=== PATIENT | male | born 1990 | race Caucasian/White ===

== ENCOUNTER 2020-04-13 10:24 | Outpatient (REF) | payer OTHER, SELFPAY ==
--- NOTE | ~2020-04-13 | FL_ITS ---
EXAMINATION: XR GI SERIES CLINICAL INFORMATION: Nausea COMPARISON: None TECHNIQUE: Air-contrast upper GI examination FINDINGS: There is normal apposition of the vocal cords while saying E. There is normal elevation of the soft palate while saying Candy. Patient swallowed thin and thick barium without difficulty. There was no evidence of nasopharyngeal reflux or tracheal aspiration. There is normal esophageal motility without evidence of ulceration or stricture. There was noted to be a patulous gastroesophageal junction with spontaneous gastroesophageal to the level of the thoracic inlet which cleared slowly. No hiatal hernia evident. The stomach demonstrated normal distensibility without ulceration or mass. There was no delay in gastric emptying. There is noted to be some persistent prominence of the duodenal mucosal folds without definite ulceration and consistent with duodenitis. The remainder of the duodenal sweep appeared unremarkable. FLUOROSCOPY TIME: 1.7 minutes DOSE AREA PRODUCT: 17.686 Gy centimeter squared FL/FL upper GI series IMPRESSION: 1. Patulous gastroesophageal junction with spontaneous reflux to the level of the thoracic inlet. 2. Thickened folds within the duodenal bulb consistent with duodenitis.
== END 2020-04-13 10:25 | disposition home or self-care (01) ==
LOC: HO.XRAY 10:24
PROVIDERS: PCP Internal Medicine; Visit Provider Internal Medicine
DX: R10.13 Epigastric pain (principal); R11.0 Nausea
CPT/HCPCS: 74240

== ENCOUNTER → 2020-05-10 13:01 | Outpatient (BNVA) | payer OTHER, SELFPAY | PROVIDERS: PCP Internal Medicine; Visit Provider Physician Assistant ==

== ENCOUNTER → 2020-06-02 08:29 | Outpatient (BNVA) | payer OTHER, SELFPAY | PROVIDERS: PCP Internal Medicine; Visit Provider Internal Medicine | DX: Z01.810 Encounter for preprocedural cardiovascular examination (principal); I63.411 Cerebral infarction due to embolism of right middle cerebral artery; Q21.1 Atrial septal defect | CPT/HCPCS: 93005; 99212 ==

== ENCOUNTER 2021-03-25 18:55 | Emergency (ER) | payer OTHER, SELFPAY ==
--- NOTE | ~2021-03-25 | CT_ITS ---
EXAMINATION: CT HEAD WITHOUT CONTRAST CLINICAL INFORMATION: Headache, rule out bleed stroke, mass effect. COMPARISON: Head CT scan dated 08/02/2016 TECHNIQUE: Contiguous axial imaging was performed from the skull base to vertex without intravenous administration of contrast. Coronal and sagittal reformatted images were obtained. This CT examination was performed using dose optimization techniques as appropriate, variously including the following: *Automated exposure control *Adjustment of mA and/or kV according to patient size (this includes techniques or standardized protocols for targeted exams where dose is matched to indication/reason for exam; i.e. extremities or head) *Use of iterative reconstruction technique DLP: 773 mGy-cm FINDINGS: Encephalomalacia is seen anteriorly in the right temporal lobe as well as in the right parietal occipital region, increased from the previous study. Mild asymmetric cortical atrophy is seen in the right cortex. There is no evidence of acute intracranial hemorrhage. No abnormal mass effect or midline shift is seen. Torre to white matter differentiation is well preserved. No extra-axial fluid collections are identified. The ventricles are normal in size. There is no abnormal attenuation within the brain parenchyma. The osseous structures and soft tissues are normal. The mastoid air cells and visualized portions of the paranasal sinuses are well aerated. CT/CT head/brain wo con IMPRESSION: Right temporal and parietal occipital encephalomalacia, increased from the previous study suggesting evolution of previously seen right middle cerebral artery territorial infarcts. A definitive acute abnormality is not seen. If the patient is experiencing acute symptoms/deficits, MRI should be considered.
[2021-03-25 19:01] VITALS: BP 121/79; PULSE 82; RESP 16; TEMP 36.8; O2SAT 96; BMI 26.9
--- NOTE | 2021-03-25 19:08 | PC.NURSE ---
Covid swab obtained. Pt refusing labs, states I really just want the Covid swab and an IV. This RN explaining why labs are important regarding his CC. Pt continues refusing labs.
[2021-03-25 19:33] LABS: COVID-19 Test Negative (Negative); IDNOW Serial# 9DD0AD1C
[2021-03-25 19:37] VITALS: RESP 16
[2021-03-25 19:49] LABS: MANUAL DIFF FLAG NO
[2021-03-25 19:50] LABS: Basophils Percent Auto 0.2 % (0-2); Eosinophils Percent Auto 0.4 % (0-4); Hematocrit 46.3 % (42.0-52.0); Hemoglobin 14.6 g/dl (14.0-18.0); Imm Gran Abs Auto 0.02 X10*3/uL (0.00-0.03); Imm Gran Pct Auto 0.2 % (0.0-0.4); Lymphocytes Absolute Auto 1.3 X10*3/uL (1.2-4.9); Mean Corpuscular HGB Conc 31.5 g/dl (31.0-36.0); Mean Corpuscular Hemoglobin 29.1 pg (27.0-33.0); Mean Corpuscular Volume 92.2 fL (80.0-98.0); Mean Platelet Volume 8.9 fL (9.4-12.4); Monocytes Absolute Auto 0.5 X10*3/uL (0.1-1.2); Monocytes Percent Auto 5.8 % (2-11); Neutrophils Absolute Auto 6.4 x10*3/uL (2.0-8.3); Neutrophils Percent Auto 77.4 % (45-73); Platelet Count 401 X10*3/uL (160-400); Red Blood Count 5.02 X10*6/uL (4.60-5.80); Red Cell Distribution Width 14.2 % (11.0-16.0); White Blood Count 8.3 X10*3/uL (4.8-10.8)
--- NOTE | 2021-03-25 19:54 | ED_ITS ---
HPI - Nausea/Vomiting/Diarrhea General Chief complaint: Nausea/Vomiting/Diarrhea Stated complaint: nausea, vomiting Time Seen by Provider: 03/25/21 19:40 Source: patient Mode of arrival: ambulatory Limitations: no limitations History of Present Illness HPI Narrative: 31-year-old male who presents emergency department for evaluation of nausea, vomiting, headache x2 days. The patient states he has been having headaches on and off for 3 weeks. He states that over the past 2 days the headache is been constant. He states that the headaches located behind his eyes, the pain is sharp and is 10/10. Patient states that he has a history stroke and cerebral aneurysm 2 years prior and was treated at [facility]. He states that he has had 3-4 episodes of vomiting per day. He states that any time he t laura to eat or drink he vomits. States that he has constant nausea. He also has developed rhinorrhea, shaking chills and fatigue. He has a cough only in the morning which is productive of green phlegm. He denied chest pain, shortness of breath, dyspnea on exertion, diarrhea, myalgias, arthralgias or loss of sense of taste or smell. In reviewing the patient's records, patient was seen here for an acute stroke secondary to and right MCA embolism secondary to PFO. Patient received tPA and eventually had clot retrieval at [facility]. The patient does have a atrial septal aneurysm but I do not think that he had a cerebral aneurysm based on my review of his record. Related Data Home Medications Medication Instructions Recorded Confirmed buprenorphine 8 mg-naloxone 2 mg 2 tab SUBLINGUAL DAILY 05/10/20 03/20/21 sublingual tablet aspirin 81 mg tablet,delayed 81 mg PO DAILY 06/02/20 03/20/21 release omeprazole 40 mg capsule,delayed 40 mg PO DAILY 06/02/20 03/20/21 release Previous Rx's Medication Instructions Recorded pantoprazole 40 mg tablet,delayed 40 mg PO BID #90 tab 05/18/20 release sucralfate 100 mg/mL oral 10 ml PO BEDTIME #400 ml 05/18/20 suspension ifsnbojdcf-xjdzarqaocfwh-wttcqhjf 1 cap PO Q8H PRN #60 cap 03/21/21 50 mg-300 mg-40 mg capsule (Fioricet) metoclopramide HCl 10 mg tablet 10 mg PO Q6H PRN #14 tab 03/25/21 (Reglan) Allergies Allergy/AdvReac Type Severity Reaction Status Date / Time No Known Allergies Allergy Verified 03/25/21 19:05 [No Known Allergies*] Review of Systems Verdana 4l Review of Systems: Yes all other systems are reviewed and Verdana 4d are negative [facility] Past Medical History [facility] Narrative: Social history: He denies tobacco and alcohol use. 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 He is currently in a Suboxone program. Medical History Cerebrovascular accident (CVA) due to embolism of right middle cerebral artery CVA (cerebral vascular accident) Drug abuse Duodenitis Epigastric discomfort Epilepsy GERD (gastroesophageal reflux disease) History of substance abuse Nausea PFO (patent foramen ovale) PFO with atrial septal aneurysm Pure hypercholesterolemia Seizure Surgical History History of surgery Family History Family History Father No problems noted. Mother No problems noted. 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 Physical Exam Verdana 4l Vital Signs: Verdana 4d Verdana 4d Vital Signs: Verdana 4d Verdana 4Bd Last Vital Signs Verdana 4d Production Sorter New 4d Production Sorter New 4d Temp 98.2 F 03/25/21 19:01 Production Sorter New 4d Pulse 82 03/25/21 19:01 Production Sorter New 4d Resp 16 03/25/21 19:37 BP 121/79 03/25/21 19:01 Pulse Ox 96 03/25/21 19:01 BMI result Body Mass Index 26.9 Const: General: cooperative and no acute distress Orientation/consciousness: oriented to person and oriented to place Limitations: no limitations HENMT: Head: Yes normal to inspection, Yes normocephalic and Yes atraumatic Ears: external ears normal General nose exam: Normal external nose present Face and sinus: Yes normal facial exam Mouth: Normal oral and palatal mucosa present Throat: Yes posterior oropharynx normal Eyes: General: appearance normal, both eyes and all related structures Pupils: Equal, round and reactive pupils present Neck: Neck: Yes normal visual inspection, Yes no lymphadenopathy, Yes trachea midline and Yes supple Chest: Chest palpation & inspection: normal inspection of the chest and normal palpation of entire chest wall Resp: Effort & Inspection: normal respiratory effort and able to speak in complete sentences Auscultation: clear to auscultation bilaterally Cardio: Rate: regular rate Rhythm: regular rhythm Heart sounds: S1 normal heart sound present, S2 normal heart sound present and no murmurs GI: Inspection: Yes normal to inspection Palpation (GI): Soft to palpation, non tender and no guarding Auscultation: normal bowel sounds : General: Yes no CVA tenderness Back/Spine/Pelvis: Back: no CVA tenderness Skin: General skin exam: no rashes or lesions noted Neuro: General: oriented to person and oriented to place Cranial nerves: Yes CN's II-XII intact bilaterally and Yes Equal, round and reactive pupils present Cognition (Neuro): normal cognition Motor exam (neuro): 5/5 motor strength present throughout Extrem: General: Yes normal to inspection Psych: Appearance: grossly normal Speech and movement: Normal speech and movement present Affect: normal affect Attitude: cooperative Thought process: Normal thought process present Thought content: Normal thought content present Course Course Course Narrative: 31-year-old male who presents emergency department for evaluation of a headache x2 days, nausea, vomiting, unable to eat or drink, rhinorrhea, cough, subjective fever and chills. The patient has had symptoms for 2 days. He states he has not been able to hold down any food or fluid secondary to his nausea and vomiting. The patient does have a history of stroke and cerebral aneurysm which was treated at [facility]. Vital signs were normal. Physical examination was unremarkable including a nonfocal neurologic exam. I ordered CBC, BMP, liver panel, lipase, CT scan of the head without contrast. Patient's symptoms will be treated with Toradol 15 mg IV, Reglan 10 mg IV, Benadryl 50 mg IV and normal saline x1 L. 2152: Patient is feeling significantly better after the above treatment. Patient's laboratory evaluation was unremarkable except for slight elevation in his creatinine of 1.44 which is probably secondary to dehydration. The patient's CT scan of the brain revealed no acute process, the radiologist did note that the right temporal and parietal occipital encephalomalacia increased from the previous study however that is when the patient was having an evolving stroke and I do not think that this finding significant or is the cause of his symptoms. Patient's COVID-19 test was negative. I did discuss the possibility of a false negative with the patient patient most likely has an acute viral syndrome. Patient will be discharged home and advised to take Reglan 10 mg, Excedrin migraine 2 tablets and Benadryl 50 mg every 6 hours as needed for naus ea, vomiting and headache. MDM - Nausea/Vomiting/Diarrhea Lab Data Result diagrams: 03/25/21 19:44 03/25/21 19:44 Labs: Lab Results 03/25/21 03/25/21 03/25/21 Range/Units 19:07 19:44 19:44 WBC 8.3 (4.8-10.8) X10*3/uL RBC 5.02 (4.60-5.80) X10*6/uL Hgb 14.6 (14.0-18.0) g/dl Hct 46.3 (42.0-52.0) % MCV 92.2 (80.0-98.0) fL MCH 29.1 (27.0-33.0) pg MCHC 31.5 (31.0-36.0) g/dl RDW 14.2 (11.0-16.0) % Plt Count 401 H (160-400) X10*3/uL MPV 8.9 L (9.4-12.4) fL Immature Gran % (Auto) 0.2 (0.0-0.4) % Neut % (Auto) 77.4 H (45-73) % Lymph % (Auto) 16.0 L (20-40) % [place] % (Auto) 5.8 (2-11) % Eos % (Auto) 0.4 (0-4) % Baso % (Auto) 0.2 (0-2) % Lymph # (Auto) 1.3 (1.2-4.9) X10*3/uL [place] # (Auto) 0.5 (0.1-1.2) X10*3/uL Eos # (Auto) 0.0 (0.0-0.4) X10*3/uL Baso # (Auto) 0.0 (0.0-0.2) X10*3/uL Abs Immat Gran (auto) 0.02 (0.00-0.03) X10*3/uL Absolute Neuts (auto) 6.4 (2.0-8.3) x10*3/uL Absolute Nucleated RBC 0.000 (0.0-0.012) X10*3/uL Nucleated RBC % (auto) 0.0 (0.0-0.2) /100WBC Sodium 141 (135-145) mmol/L Potassium 4.6 (3.3-5.1) mmol/L Chloride 103 (96-108) mmol/L Carbon Dioxide 30 H (22-29) mmol/L Anion Gap 13 (12-20) BUN 16 (9-16) mg/dL Creatinine 1.44 H (0.5-1.4) mg/dL Estim Creat Clear Calc 84.8 Estimated GFR 56 Random Glucose 117 H (60-115) mg/dL Calcium 9.6 (8.4-10.2) mg/dL Total Bilirubin 0.4 (0.0-1.0) mg/dL Direct Bilirubin 0.2 (0.0-0.5) mg/dL AST 17 (5-37) U/L ALT 15 (0-40) U/L Alkaline Phosphatase 58 (39-117) U/L Total Protein 7.5 (6.5-8.0) g/dL Albumin 4.6 (3.5-5.0) g/dL Lipase 22 (8-78) U/L COVID-19 (ADRIANA) Negative (Negative) COVID-19 Clin Com See Note Discharge Plan Discharge Clinical Impression: Acute viral syndrome, Acute dehydration Headache Qualifiers: Headache chronicity pattern: acute headache Intractability: not intractable Vomiting Qualifiers: Vomiting type: unspecified Nausea presence: with nausea Qualified Code(s): R11.2 - Nausea with vomiting, unspecified Patient Disposition: Home, Self-Care Instructions: Viral Syndrome (ED) Additional Instructions: Your blood work was normal. The CT scan of your head did not reveal any significant abnormality to explain your headache. The radiologist was able to see the old stroke on the CT scan but I do not think that this is related to your symptoms today. At this time, I believe that you have a viral infection that is making you sick in giving your symptoms. Your COVID-19 test was negative which is reassuring. However, sometimes in the 1st 1-4 days of a COVID infection a negative COVID test can be a false negative. If you develops signs of an upper respiratory infection such as chest pain, shortness of breath, productive cough, shortness of breath with exertion then you should consider getting retested for COVID 19. I want you to take the following 3 medications together every 6 hours as needed for headache, nausea or vomiting. Reglan (metoclopramide) in 10 mg, 1 pill Benadryl 25 mg, 2 pills Excedrin migraine, 2 pills. After you take these medications, lie down in a dark quiet room and try to fall asleep. These medications will make you sleepy, do not drive or work after taking these medications. Follow-up with your doctor in 2 days. Please return to the emergency department if your symptoms get worse or if you develop any symptoms that are concerning to you. Prescriptions: New metoclopramide HCl [Reglan] 10 mg tablet 10 mg PO Q6H PRN (Reason: nausea and vomiting) Qty: 14 0RF No Action pantoprazole 40 mg tablet,delayed release (DR/EC) 40 mg PO BID Qty: 90 2RF sucralfate 100 mg/mL suspension 10 ml PO BEDTIME Qty: 400 0RF cdavxvbbqh-sgtjcjhckzfan-jydl [Fioricet] 50-300-40 mg capsule 1 cap PO Q8H PRN (Reason: headache) Qty: 60 1RF buprenorphine-naloxone 8-2 mg tablet, sublingual 2 tab sublingual DAILY 0RF omeprazole 40 mg capsule,delayed release(DR/EC) 40 mg PO DAILY 0RF aspirin 81 mg tablet,delayed release (DR/EC) 81 mg PO DAILY 0RF
[2021-03-25 20:11] LABS: Alanine Aminotransferase 15 U/L (0-40); Albumin Level 4.6 g/dL (3.5-5.0); Alkaline Phosphatase 58 U/L (39-117); Anion Gap 13 (12-20); Aspartate Amino Transferase 17 U/L (5-37); Bilirubin Direct 0.2 mg/dL (0.0-0.5); Bilirubin Total 0.4 mg/dL (0.0-1.0); Blood Urea Nitrogen 16 mg/dL (9-16); Calcium 9.6 mg/dL (8.4-10.2); Carbon Dioxide 30 mmol/L (22-29); Chloride 103 mmol/L (96-108); Creatinine Clr Calc Pharmacy 84.8; Estimated Glomerular Filt Rate 56; Glucose Random 117 mg/dL (60-115); Lipase 22 U/L (8-78); Potassium 4.6 mmol/L (3.3-5.1); Sodium 141 mmol/L (135-145); Total Protein 7.5 g/dL (6.5-8.0)
[2021-03-25] MEDS: Ketorolac Tromethamine 30 MG/ML VIAL 15 MG IVPUSH (20:15)
[2021-03-25] MEDS: diphenhydrAMINE HCL 50 MG/ML VIAL IVPUSH (20:17)
[2021-03-25] MEDS: Metoclopramide HCl 10 MG/2 ML VIAL IVPUSH (20:19)
[2021-03-25] MEDS: 0.9 % Sodium Chloride 1,000 ML 999 ML IV (20:22)
[2021-03-25 22:01] VITALS: BP 132/77; PULSE 87; RESP 16; TEMP 36.8; O2SAT 98
== END 2021-03-25 22:04 | disposition home or self-care (01) ==
PROVIDERS: Emergency Provider Emergency Medicine Emergency Medical Services; PCP Internal Medicine
DX: B34.9 Viral infection, unspecified (principal); E86.0 Dehydration; R51.9 Headache, unspecified; R11.2 Nausea with vomiting, unspecified; Z20.822 Contact with and (suspected) exposure to COVID-19
CPT/HCPCS: 36415; 70450; 80048; 80076; 83690; 85025; 87635; 96361; 96374; 96375; 99284; J1200; J1885; J2765

== ENCOUNTER → 2021-03-27 13:22 | Outpatient (BNVA) | payer OTHER, SELFPAY | PROVIDERS: PCP Internal Medicine; Referring Provider Internal Medicine; Visit Provider Internal Medicine | DX: Z01.810 Encounter for preprocedural cardiovascular examination (principal); Q21.1 Atrial septal defect; Z86.73 Personal history of transient ischemic attack (TIA), and cerebral infarction without residual deficits; Z79.82 Long term (current) use of aspirin | CPT/HCPCS: 93005; 99212 ==

== ENCOUNTER 2021-04-29 06:38 | Emergency (ER) | payer OTHER, SELFPAY ==
--- NOTE | ~2021-04-29 | CT_ITS ---
EXAMINATION: CT ANGIOGRAM OF THE HEAD CT ANGIOGRAM OF THE NECK CLINICAL INFORMATION: Assess for cervical dissection. Left upper extremity weakness. History of CVA. COMPARISON: Concurrent CT scan of the head 04/29/2021. CT scan of the head 03/25/2021. CTA of the head and neck 10/05/2015. MRI scan of the brain 07/18/2016. TECHNIQUE: Test bolus series followed by intravenous administration 75 mL of Omnipaque 350. Helical imaging was performed in the axial plane from the mediastinum to the skull vertex. The degree of stenosis is based off NASCET criteria. The data was processed at the radiographer technologist workstation for generation of MIP images. Three-dimensional volume rendered reformatted images were also generated at an offline 3-D workstation. This CT examination was performed using dose optimization techniques as appropriate, variously including the following: *Automated exposure control *Adjustment of mA and/or kV according to patient size (this includes techniques or standardized protocols for targeted exams where dose is matched to indication/reason for exam; i.e. extremities or head) *Use of iterative reconstruction technique DLP: 1625 mGy-cm. FINDINGS: CT Head: The study redemonstrates the encephalomalacia and likely gliotic changes in the right temporo-occipital regions with mild ex-vacuo dilatation of the atrium and temporal horn of the right lateral ventricle, consistent with sequelae of the prior infarct. Mild prominence of the sulci in the region also mildly prominent, unchanged. There is no evidence of an acute intracranial hemorrhage or territorial infarction. No abnormal mass-effect or midline shift is seen. Torre to white matter differentiation is well preserved. No extra-axial fluid collections are identified. There is no abnormal enhancement. Elsewhere, brain parenchymal attenuation appears normal. The osseous structures, and the soft tissues appear normal. The right maxillary 3rd molar tooth is unerupted. There is an extraction socket from the right maxillary 2nd molar tooth, consistent with a relatively recent extraction. There are retention cysts in the inferior maxillary sinuses bilaterally. CTA Neck: There is a classic configuration of the arch of the aorta. The great vessels of the neck are widely patent. The subclavian arteries appear normal bilaterally. The common carotid arteries have normal caliber. The carotid bifurcations bilaterally appear normal. The internal carotid arteries in the neck bilaterally have uniform and normal caliber. The origins of both vertebral arteries are well seen and appear normal. Both vertebral arteries are widely patent and demonstrate good opacification throughout their cervical course. The right vertebral artery is dominant. Nonvascular: There are dependent atelectatic changes in the lungs bilaterally. There is no cervical lymphadenopathy. There are small lymph nodes at multiple levels in the neck bilaterally. There are mild spondylitic changes with posterior disc osteophytes at C4-C5 and C5-C6 with mild foraminal narrowing at C5-C6. The thyroid gland appears normal. CTA Head: In the anterior circulation, the distal internal carotid arteries within the neck appear normal. The intracranial internal carotid arteries and their bifurcations appear normal. The middle and anterior cerebral arteries bilaterally demonstrate normal caliber with no evidence of focal stenosis, aneurysm or vascular malformation. There is normal arborization of the middle cerebral artery branches. The anterior communicating artery is normal. In the posterior circulation, the right vertebral artery is dominant. The left vertebral artery ends primarily in the PICA. The basilar artery appears normal. There is a origin of the right posterior cerebral artery. The posterior cerebral arteries have normal caliber. The venous sinuses opacify normally. CT/CT angio head neck IMPRESSION: 1. The study redemonstrates the gliosis and encephalomalacia from a chronic infarct in the right middle cerebral artery territory. There are no acute territorial infarcts evidence of hemorrhage. There are no masses or areas of abnormal enhancement. 2. The vascular structures in the neck appear normal. There are no flow limiting stenoses or dissections. There are no masses or lymphadenopathy. 3. Intracranially, there are no focal stenoses, aneurysms or vascular malformations. 4. This result was conveyed to Bel RHODES by telephone on 04/29/2021 at 11:25 AM and it was ascertained that the content and urgency of the report was understood at the time of direct communication.
--- NOTE | ~2021-04-29 | CT_ITS ---
EXAMINATION: CT HEAD WITHOUT CONTRAST CLINICAL INFORMATION: Left upper extremity weakness, numbness. COMPARISON: 03/25/[address] scan[address] TECHNIQUE: Contiguous axial imaging was performed from the skull base to vertex without intravenous administration of contrast. Coronal and sagittal reformatted images were obtained. This CT examination was performed using dose optimization techniques as appropriate, variously including the following: *Automated exposure control *Adjustment of mA and/or kV according to patient size (this includes techniques or standardized protocols for targeted exams where dose is matched to indication/reason for exam; i.e. extremities or head) *Use of iterative reconstruction technique DLP: 742.33 mGy-cm FINDINGS: Encephalomalacia is again seen anteriorly in the right temporal lobe as well as in the right parietal occipital region without significant interval change. Mild asymmetric right cortical atrophy is again seen as well without significant change. There is no evidence for acute intracranial hemorrhage. No mass effect or midline shift. The ventricles are normal in size. The osseous structures and soft tissues are normal. The mastoid air cells and visualized portions of the paranasal sinuses are well aerated. CT/CT head/brain wo con IMPRESSION: No acute intracranial pathology. Sequelae of remote right middle cerebral artery territory infarct without significant change. Please refer to the report from the CTA of the head from today for additional findings.
[2021-04-29 06:57] VITALS: BP 130/71; PULSE 92; RESP 16; TEMP 36.8; O2SAT 95; BMI 26.9
[2021-04-29 07:49] VITALS: BP 116/67; PULSE 93; RESP 16; TEMP 36.7; O2SAT 95
--- NOTE | 2021-04-29 08:18 | ECG_ITS ---
Test Reason : weakness Blood Pressure : / mmHG Vent. Rate : 077 BPM Atrial Rate : 077 BPM P-R Int : 174 ms QRS Dur : 096 ms QT Int : 388 ms P-R-T Axes : 062 057 039 degrees QTc Int : 439 ms Normal sinus rhythm Normal ECG When compared with ECG of 02-AUG-2016 22:40, No significant change was found Referred By: Bel Lui Electronically Signed By:Gabriele Smith
--- NOTE | 2021-04-29 08:22 | ED.GENADULT ---
HPI - General Adult General Chief complaint: Extremity Problem <CARMELO Maza Last Filed: 04/29/21 11:43> Stated complaint: l arm pain <CARMELO Maza Last Filed: 04/29/21 11:43> Time Seen by Provider: 04/29/21 08:08 <CARMELO Maza Last Filed: 04/29/21 11:43> Source: patient <CARMELO Maza Last Filed: 04/29/21 11:43> Mode of arrival: ambulatory <CARMELO Maza Last Filed: 04/29/21 11:43> History of Present Illness HPI narrative: 31-year-old male with past medical history nonepileptic seizures, restless leg, middle cerebral artery CVA, patent foramen ovale, prior history of heroin abuse now on Suboxone, presenting to the ED complaining of left arm numbness and weakness since waking at 05:00AM. Admits awoke with the sx, not sure when exactly they started. Reports tingling/paresthesias. Denies known injury/trauma, fall, headache, neck/back pain, IVDA, fever/chills. Denies falling asleep an awkward position <CARMELO Maza Last Filed: 04/29/21 11:43> Onset (ago): hour(s) <CARMELO Maza - Last Filed: 04/29/21 11:43> Location: left and upper extremity <CARMELO Maza Last Filed: 04/29/21 11:43> Related Data Home medications: Home Medications Medication Instructions Recorded Confirmed buprenorphine 8 mg-naloxone 2 mg 2 tab SUBLINGUAL DAILY 05/10/20 03/27/21 sublingual tablet aspirin 81 mg tablet,delayed 81 mg PO DAILY 06/02/20 03/27/21 release omeprazole 40 mg capsule,delayed 40 mg PO DAILY 06/02/20 03/27/21 release Previous Rx's Medication Instructions Recorded pantoprazole 40 mg tablet,delayed 40 mg PO BID #90 tab 05/18/20 release sucralfate 100 mg/mL oral 10 ml PO BEDTIME #400 ml 05/18/20 suspension [id number]-fxbbscermizco-yrxfsrff 1 cap PO Q8H PRN #60 cap 03/21/21 50 mg-300 mg-40 mg capsule (Fioricet) metoclopramide HCl 10 mg tablet 10 mg PO Q6H PRN #14 tab 03/25/21 (Reglan) <CARMELO Maza - Last Filed: 04/29/21 11:43> Allergies/adverse reactions: Allergies Allergy/AdvReac Type Severity Reaction Status Date / Time No Known Allergies Allergy Verified 03/27/21 13:28 [No Known Allergies*] <CARMELO Maza - Last Filed: 04/29/21 11:43> Review of Systems Review of Systems: Constitutional: No Fever, No Chills, No Fatigue, No Malaise ENT/Mouth: No Ear Pain, No sore throat, No Rhinorrhea, No Swallowing Difficulty Eyes: No Eye Pain, No Discharge Cardiovascular: No Chest Pain, No SOB, No Edema, No Palpitations Respiratory: No Cough, No Sputum, No Dyspnea Gastrointestinal: No Nausea, No Vomiting, No Diarrhea, No Constipation, No Abdominal pain Genitourinary: No Dysuria, No Urinary Frequency, No Hematuria, No Flank Pain Musculoskeletal: No joint pain, No Myalgias, No Joint Swelling Skin: No Skin Lesions, No rash Neuro: + Weakness, + Numbness, + Paresthesias, No Loss of Consciousness, No Dizziness, No Headache <CARMELO Maza Last Filed: 04/29/21 11:43> Yes all other systems are reviewed and are negative <CARMELO Maza Last Filed: 04/29/21 11:43> Neurologic: Denies Abnormal speech present <CARMELO Maza Last Filed: 04/29/21 11:43> [facility] Past Medical History Attestation statement: The following information was validated with the patient. <CARMELO Maza Last Filed: 04/29/21 11:43> Medical History: Medical History Cerebrovascular accident (CVA) due to embolism of right middle cerebral artery CVA (cerebral vascular accident) Drug abuse Duodenitis Epigastric discomfort Epilepsy GERD (gastroesophageal reflux disease) History of substance abuse Nausea PFO (patent foramen ovale) PFO with atrial septal aneurysm Pure hypercholesterolemia Seizure <CARMELO Maza Last Filed: 04/29/21 11:43> Surgical History: Surgical History History of surgery <CARMELO Maza - Last Filed: 04/29/21 11:43> Family History Family History: Family History Father No problems noted. Mother No problems noted. 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 [employer] <CARMELO Maza - Last Filed: 04/29/21 11:43> Physical Exam ED Vital Signs: Vital Signs - 24 hr 04/29/21 06:57 04/29/21 07:49 04/29/21 10:09 Temperature 98.3 F 98.0 F 98.1 F Pulse Rate 92 93 72 Respiratory Rate 16 16 16 Blood Pressure 130/71 116/67 110/61 Pulse Oximetry 95 95 97 BMI result Body Mass Index 26.9 <CARMELO Maza - Last Filed: 04/29/21 11:43> Vital Signs - 24 hr 04/29/21 06:57 04/29/21 07:49 04/29/21 10:09 Temperature 98.3 F 98.0 F 98.1 F Pulse Rate 92 93 72 Respiratory Rate 16 16 16 Blood Pressure 130/71 116/67 110/61 Pulse Oximetry 95 95 97 BMI result Body Mass Index 26.9 <Adrian Solis MD - Last Filed: 05/05/21 19:15> Const General: cooperative, healthy appearing and no acute distress <CARMELO Maza - Last Filed: 04/29/21 11:43> Orientation/consciousness: patient oriented x3 <CARMELO Maza - Last Filed: 04/29/21 11:43> Limitations: no limitations <Bel Lui PA - Last Filed: 04/29/21 11:43> HENMT Head: Yes normal to inspection and Yes atraumatic <Bel Lui PA - Last Filed: 04/29/21 11:43> Ears: hearing grossly normal bilaterally <Bel Lui PA - Last Filed: 04/29/21 11:43> General nose exam: Normal external nose present <Bel Lui PA - Last Filed: 04/29/21 11:43> Face and sinus: Yes normal facial exam <Bel Lui PA - Last Filed: 04/29/21 11:43> Eyes General: appearance normal, both eyes and all related structures <Bel Lui GA - Last Filed: 04/29/21 11:43> Sclerae: sclerae normal <Bel Lui PA - Last Filed: 04/29/21 11:43> Corneas: corneas normal <Bel Lui GA - Last Filed: 04/29/21 11:43> Pupils: Equal, round and reactive pupils present <Bel Lui PA - Last Filed: 04/29/21 11:43> EOM: EOMs intact bilaterally <Bel Lui PA - Last Filed: 04/29/21 11:43> Neck Other: No midline cervical spinous tenderness <Bel Lui PA - Last Filed: 04/29/21 11:43> Neck: Yes normal visual inspection and Yes no meningeal signs <CARMELO Maza - Last Filed: 04/29/21 11:43> Resp Effort & Inspection: normal respiratory effort and no respiratory distress <Bel Lui PA - Last Filed: 04/29/21 11:43> Auscultation: clear to auscultation bilaterally <CARMELO Maza - Last Filed: 04/29/21 11:43> Cardio Rate: regular rate <Bel Lui PA - Last Filed: 04/29/21 11:43> Heart sounds: S1 normal heart sound present and S2 normal heart sound present <CARMELO Maza - Last Filed: 04/29/21 11:43> GI Inspection: Yes normal to inspection <Bel Lui PA - Last Filed: 04/29/21 11:43> Palpation (GI): Soft to palpation, nontender, no guarding and not rigid <Bel Lui PA - Last Filed: 04/29/21 11:43> Skin Rashes: no rashes <Bel Lui PA - Last Filed: 04/29/21 11:43> Wounds: no wounds <Bel Lui PA - Last Filed: 04/29/21 11:43> Neuro General: patient oriented x3, gait normal, tone normal, moves all extremities, no meningeal signs and CN's II-XI intact bilaterally <Bel Lui PA - Last Filed: 04/29/21 11:43> Cranial nerves: Yes CN's II-XII intact bilaterally and Yes Equal, round and reactive pupils present <Bel Lui PA - Last Filed: 04/29/21 11:43> Cognition (Neuro): normal cognition <Bel Lui PA - Last Filed: 04/29/21 11:43> Speech: No Abnormal speech present <Bel Lui PA - Last Filed: 04/29/21 11:43> Gait exam (Neuro): Normal gait present <Bel Lui PA - Last Filed: 04/29/21 11:43> Motor exam (neuro): no tremor noted and Abnormal motor strength present left proximal upper extremity flexion (bicep) 4 / 5 <Bel Lui PA - Last Filed: 04/29/21 11:43> Extrem General: Yes normal to inspection <Bel Lui PA - Last Filed: 04/29/21 11:43> NIH Stroke Scale Internal: Initial- Upon Arrival <CARMELO Maza - Last Filed: 04/29/21 11:43> Level of Consciousness: Alert <CARMELO Maza - Last Filed: 04/29/21 11:43> Level of Consciousness Questions: Answers both questions correctly <CARMELO Maza - Last Filed: 04/29/21 11:43> Level of Consciousness Commands: Performs both tasks correctly <CARMELO Maza - Last Filed: 04/29/21 11:43> Best Gaze: Normal <Bel Pouliot, PA - Last Filed: 04/29/21 11:43> Visual: No visual loss <Bel Pouliot, PA - Last Filed: 04/29/21 11:43> Facial Palsy: Normal <Bel Pouliot, PA - Last Filed: 04/29/21 11:43> Motor Arm (Right): No drift <Bel Pouliot, PA - Last Filed: 04/29/21 11:43> Motor Arm (Left): No drift <Bel Pouliot, PA - Last Filed: 04/29/21 11:43> Motor Leg (Right): No drift <Bel Pouliot, PA - Last Filed: 04/29/21 11:43> Motor Leg (Left): No drift <Bel Pouliot, PA - Last Filed: 04/29/21 11:43> Limb Ataxia: Absent <Bel Poulhillaryt, PA - Last Filed: 04/29/21 11:43> Sensory: Normal <Bel Poulhillaryt PA - Last Filed: 04/29/21 11:43> Best Language: No aphasia <Bel Poulhillaryt, PA - Last Filed: 04/29/21 11:43> Dysarthia: Normal <Bel Poulhillaryt PA - Last Filed: 04/29/21 11:43> Extinction and Inattention: No abnormality <Bel Poulescobar PA - Last Filed: 04/29/21 11:43> Score: 0 <CARMELO Maza - Last Filed: 04/29/21 11:43> 0 <Adrian Solis MD - Last Filed: 05/05/21 19:15> Course Course Course Narrative: -labs unremarkable CT head/brain wo con IMPRESSION: No acute intracranial pathology. Sequelae of remote right middle cerebral artery territory infarct without significant change. ? Please refer to the report from the CTA of the head from today for additional findings. 1139--CT angio head neck IMPRESSION: 1. The study redemonstrates the gliosis and encephalomalacia from a chronic infarct in the right middle cerebral artery territory. There are no acute territorial infarcts evidence of hemorrhage. There are no masses or areas of abnormal enhancement. ? 2. The vascular structures in the neck appear normal. There are no flow limiting stenoses or dissections. There are no masses or lymphadenopathy. ? 3. Intracranially, there are no focal stenoses, aneurysms or vascular malformations. ? 4. This result was conveyed to Bel LANE by telephone on 04/29/2021 at 11:25 AM and it was ascertained that the content and urgency of the report was understood at the time of direct communication. > discussed results patient. 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 I discussed with him risks of leaving including permanent paralysis, disability, and , etc. Patient is A&O x3, competent to make his own decisions, verbalized understanding and will sign out AMA. Patient was encouraged to return to the ED if any symptoms worsen/progress <CARMELO Maza Last Filed: 04/29/21 11:43> Medical Decision Making MDM Narrative Medical decision making narrative: 31-year-old male with past medical history nonepileptic seizures, restless leg, middle cerebral artery CVA, patent foramen ovale, prior history of heroin abuse now on Suboxone, presenting to the ED complaining of left arm numbness and weakness since waking at 05:00AM. On exam vital signs stable, NAD/well-appearing, nontoxic, 4/5 strength noted to left upper extremity with flexion/ADDuction. NV intact. No cervical tenderness. Concern for compressive neuropathy vs cervical dissection vs CVA. Patient is not a tPA candidate as last known well time unknown an NIHSS =0 Plan: EKG, labs, head CT, CTA head and neck <CARMELO Maza Last Filed: 04/29/21 11:43> Medical Records Medical records reviewed: Yes I reviewed the patient's medical records. <CARMELO Maza Last Filed: 04/29/21 11:43> Lab Data Lab results reviewed: Yes I reviewed the patient's lab results. <CARMELO Maza Last Filed: 04/29/21 11:43> Result diagrams: : 04/29/21 08:39 04/29/21 08:39 <CARMELO Maza Last Filed: 03/05/22 11:43> Labs: Lab Results 04/29/21 04/29/21 04/29/21 Range/Units 08:39 08:39 08:39 WBC 7.8 (4.8-10.8) X10*3/uL RBC 4.50 L (4.60-5.80) X10*6/uL Hgb 13.3 L (14.0-18.0) g/dl Hct 42.5 (42.0-52.0) % MCV 94.4 (80.0-98.0) fL MCH 29.6 (27.0-33.0) pg MCHC 31.3 (31.0-36.0) g/dl RDW 14.1 (11.0-16.0) % Plt Count 297 D (160-400) X10*3/uL MPV 8.9 L (9.4-12.4) fL Immature Gran % (Auto) 0.3 (0.0-0.4) % Neut % (Auto) 64.0 (45-73) % Lymph % (Auto) 27.1 (20-40) % [place] % (Auto) 7.2 (2-11) % Eos % (Auto) 0.9 (0-4) % Baso % (Auto) 0.5 (0-2) % Lymph # (Auto) 2.1 (1.2-4.9) X10*3/uL [place] # (Auto) 0.6 (0.1-1.2) X10*3/uL Eos # (Auto) 0.1 (0.0-0.4) X10*3/uL Baso # (Auto) 0.0 (0.0-0.2) X10*3/uL Abs Immat Gran (auto) 0.02 (0.00-0.03) X10*3/uL Absolute Neuts (auto) 5.0 (2.0-8.3) x10*3/uL Absolute Nucleated RBC 0.000 (0.0-0.012) X10*3/uL Nucleated RBC % (auto) 0.0 (0.0-0.2) /100WBC PT 12.2 (9.9-13.0) SEC INR 1.1 (0.9-1.1) APTT 31.3 (24.1-38.0) SEC Sodium 140 (135-145) mmol/L Potassium 4.1 (3.3-5.1) mmol/L Chloride 101 (96-108) mmol/L Carbon Dioxide 34 H (22-29) mmol/L Anion Gap 9 L (12-20) BUN 12 (9-16) mg/dL Creatinine 1.29 (0.5-1.4) mg/dL Estim Creat Clear Calc 94.6 Estimated GFR > 60 Random Glucose 111 (60-115) mg/dL Calcium 10.0 (8.4-10.2) mg/dL Magnesium 2.2 (1.6-2.6) mg/dL Total Bilirubin 0.5 (0.0-1.0) mg/dL Direct Bilirubin 0.2 (0.0-0.5) mg/dL AST 24 D (5-37) U/L ALT 14 (0-40) U/L Alkaline Phosphatase 56 (39-117) U/L Total Protein 7.1 (6.5-8.0) g/dL Albumin 4.5 (3.5-5.0) g/dL COVID-19 (ADRIANA) (Negative) COVID-19 Clin Com 04/29/21 Range/Units 08:39 WBC (4.8-10.8) X10*3/uL RBC (4.60-5.80) X10*6/uL Hgb (14.0-18.0) g/dl Hct (42.0-52.0) % MCV (80.0-98.0) fL MCH (27.0-33.0) pg MCHC (31.0-36.0) g/dl RDW (11.0-16.0) % Plt Count (160-400) X10*3/uL MPV (9.4-12.4) fL Immature Gran % (Auto) (0.0-0.4) % Neut % (Auto) (45-73) % Lymph % (Auto) (20-40) % [place] % (Auto) (2-11) % Eos % (Auto) (0-4) % Baso % (Auto) (0-2) % Lymph # (Auto) (1.2-4.9) X10*3/uL [place] # (Auto) (0.1-1.2) X10*3/uL Eos # (Auto) (0.0-0.4) X10*3/uL Baso # (Auto) (0.0-0.2) X10*3/uL Abs Immat Gran (auto) (0.00-0.03) X10*3/uL Absolute Neuts (auto) (2.0-8.3) x10*3/uL Absolute Nucleated RBC (0.0-0.012) X10*3/uL Nucleated RBC % (auto) (0.0-0.2) /100WBC PT (9.9-13.0) SEC INR (0.9-1.1) APTT (24.1-38.0) SEC Sodium (135-145) mmol/L Potassium (3.3-5.1) mmol/L Chloride (96-108) mmol/L Carbon Dioxide (22-29) mmol/L Anion Gap (12-20) BUN (9-16) mg/dL Creatinine (0.5-1.4) mg/dL Estim Creat Clear Calc Estimated GFR Random Glucose (60-115) mg/dL Calcium (8.4-10.2) mg/dL Magnesium (1.6-2.6) mg/dL Total Bilirubin (0.0-1.0) mg/dL Direct Bilirubin (0.0-0.5) mg/dL AST (5-37) U/L ALT (0-40) U/L Alkaline Phosphatase (39-117) U/L Total Protein (6.5-8.0) g/dL Albumin (3.5-5.0) g/dL COVID-19 (ADRIANA) Negative (Negative) COVID-19 Clin Com See Note <CARMELO Maza - Last Filed: 04/29/21 11:43> Lab Results 04/29/21 04/29/21 04/29/21 Range/Units 08:39 08:39 08:39 WBC 7.8 (4.8-10.8) X10*3/uL RBC 4.50 L (4.60-5.80) X10*6/uL Hgb 13.3 L (14.0-18.0) g/dl Hct 42.5 (42.0-52.0) % MCV 94.4 (80.0-98.0) fL MCH 29.6 (27.0-33.0) pg MCHC 31.3 (31.0-36.0) g/dl RDW 14.1 (11.0-16.0) % Plt Count 297 D (160-400) X10*3/uL MPV 8.9 L (9.4-12.4) fL Immature Gran % (Auto) 0.3 (0.0-0.4) % Neut % (Auto) 64.0 (45-73) % Lymph % (Auto) 27.1 (20-40) % [place] % (Auto) 7.2 (2-11) % Eos % (Auto) 0.9 (0-4) % Baso % (Auto) 0.5 (0-2) % Lymph # (Auto) 2.1 (1.2-4.9) X10*3/uL [place] # (Auto) 0.6 (0.1-1.2) X10*3/uL Eos # (Auto) 0.1 (0.0-0.4) X10*3/uL Baso # (Auto) 0.0 (0.0-0.2) X10*3/uL Abs Immat Gran (auto) 0.02 (0.00-0.03) X10*3/uL Absolute Neuts (auto) 5.0 (2.0-8.3) x10*3/uL Absolute Nucleated RBC 0.000 (0.0-0.012) X10*3/uL Nucleated RBC % (auto) 0.0 (0.0-0.2) /100WBC PT 12.2 (9.9-13.0) SEC INR 1.1 (0.9-1.1) APTT 31.3 (24.1-38.0) SEC Sodium 140 (135-145) mmol/L Potassium 4.1 (3.3-5.1) mmol/L Chloride 101 (96-108) mmol/L Carbon Dioxide 34 H (22-29) mmol/L Anion Gap 9 L (12-20) BUN 12 (9-16) mg/dL Creatinine 1.29 (0.5-1.4) mg/dL Estim Creat Clear Calc 94.6 Estimated GFR > 60 Random Glucose 111 (60-115) mg/dL Calcium 10.0 (8.4-10.2) mg/dL Magnesium 2.2 (1.6-2.6) mg/dL Total Bilirubin 0.5 (0.0-1.0) mg/dL Direct Bilirubin 0.2 (0.0-0.5) mg/dL AST 24 D (5-37) U/L ALT 14 (0-40) U/L Alkaline Phosphatase 56 (39-117) U/L Total Protein 7.1 (6.5-8.0) g/dL Albumin 4.5 (3.5-5.0) g/dL COVID-19 (ADRIANA) (Negative) COVID-19 Clin Com 04/29/21 Range/Units 08:39 WBC (4.8-10.8) X10*3/uL RBC (4.60-5.80) X10*6/uL Hgb (14.0-18.0) g/dl Hct (42.0-52.0) % MCV (80.0-98.0) fL MCH (27.0-33.0) pg MCHC (31.0-36.0) g/dl RDW (11.0-16.0) % Plt Count (160-400) X10*3/uL MPV (9.4-12.4) fL Immature Gran % (Auto) (0.0-0.4) % Neut % (Auto) (45-73) % Lymph % (Auto) (20-40) % [place] % (Auto) (2-11) % Eos % (Auto) (0-4) % Baso % (Auto) (0-2) % Lymph # (Auto) (1.2-4.9) X10*3/uL [place] # (Auto) (0.1-1.2) X10*3/uL Eos # (Auto) (0.0-0.4) X10*3/uL Baso # (Auto) (0.0-0.2) X10*3/uL Abs Immat Gran (auto) (0.00-0.03) X10*3/uL Absolute Neuts (auto) (2.0-8.3) x10*3/uL Absolute Nucleated RBC (0.0-0.012) X10*3/uL Nucleated RBC % (auto) (0.0-0.2) /100WBC PT (9.9-13.0) SEC INR (0.9-1.1) APTT (24.1-38.0) SEC Sodium (135-145) mmol/L Potassium (3.3-5.1) mmol/L Chloride (96-108) mmol/L Carbon Dioxide (22-29) mmol/L Anion Gap (12-20) BUN (9-16) mg/dL Creatinine (0.5-1.4) mg/dL Estim Creat Clear Calc Estimated GFR Random Glucose (60-115) mg/dL Calcium (8.4-10.2) mg/dL Magnesium (1.6-2.6) mg/dL Total Bilirubin (0.0-1.0) mg/dL Direct Bilirubin (0.0-0.5) mg/dL AST (5-37) U/L ALT (0-40) U/L Alkaline Phosphatase (39-117) U/L Total Protein (6.5-8.0) g/dL Albumin (3.5-5.0) g/dL COVID-19 (ADRIANA) Negative (Negative) COVID-19 Clin Com See Note <Adrian Solis MD - Last Filed: 05/05/21 19:15> ECG Data Attestation: I personally reviewed and interpreted this ECG as follows: <CARMELO Maza - Last Filed: 04/29/21 11:43> Interpretation: EKG normal sinus rhythm at a rate of 77. AK interval 174. QRS 96. QTC 439. No STEMI/nonischemic <CARMELO Maza - Last Filed: 04/29/21 11:43> Discharge Plan Discharge Clinical Impression: Left arm weakness <CARMELO Maza Last Filed: 04/29/21 11:43> Patient Disposition: Left Against Medical Advice <CARMELO Maza Last Filed: 04/29/21 11:43> Instructions: Weakness (ED) <CARMELO Maza - Last Filed: 04/29/21 11:43> Additional Instructions: It is possible you had a stroke. The only definitive way to show this is with an MRI. Your leaving the emergency department against medical advice. This puts you at risk of permanent paralysis, disability, and . Please return to the emergency department if symptoms progress or worsen. Please follow-up with Neurology. <CARMELO Maza - Last Filed: 04/29/21 11:43> Prescriptions: No Action pantoprazole 40 mg tablet,delayed release (DR/EC) 40 mg PO BID Qty: 90 2RF sucralfate 100 mg/mL suspension 10 ml PO BEDTIME Qty: 400 0RF [id number]-[id number]-tkzy [Fioricet] 50-300-40 mg capsule 1 cap PO Q8H PRN (Reason: headache) Qty: 60 1RF metoclopramide HCl [Reglan] 10 mg tablet 10 mg PO Q6H PRN (Reason: nausea and vomiting) Qty: 14 0RF buprenorphine-naloxone 8-2 mg tablet, sublingual 2 tab sublingual DAILY 0RF omeprazole 40 mg capsule,delayed release(DR/EC) 40 mg PO DAILY 0RF aspirin 81 mg tablet,delayed release (DR/EC) 81 mg PO DAILY 0RF <CARMELO Maza - Last Filed: 04/29/21 11:43> Referrals: Raghavendra Villarreal MD [Primary Care Provider] - 1 day Gaby Mari MD [Physician] - 1 day <CARMELO Maza - Last Filed: 04/29/21 11:43> Stand Alone Forms: Against Medical Advice <CARMELO Maza - Last Filed: 04/29/21 11:43> Interventions: ED Discharge Assessment Last Done: 04/29/21 12:13 <CARMELO Maza - Last Filed: 04/29/21 11:43> Discharge Date/Time: 04/29/21 12:15 <CARMELO Maza - Last Filed: 04/29/21 11:43>
[2021-04-29 08:43] LABS: MANUAL DIFF FLAG NO
[2021-04-29 08:47] LABS: Basophils Percent Auto 0.5 % (0-2); Eosinophils Absolute Auto 0.1 X10*3/uL (0.0-0.4); Eosinophils Percent Auto 0.9 % (0-4); Hematocrit 42.5 % (42.0-52.0); Hemoglobin 13.3 g/dl (14.0-18.0); Imm Gran Abs Auto 0.02 X10*3/uL (0.00-0.03); Imm Gran Pct Auto 0.3 % (0.0-0.4); Lymphocytes Absolute Auto 2.1 X10*3/uL (1.2-4.9); Lymphocytes Percent Auto 27.1 % (20-40); Mean Corpuscular HGB Conc 31.3 g/dl (31.0-36.0); Mean Corpuscular Hemoglobin 29.6 pg (27.0-33.0); Mean Corpuscular Volume 94.4 fL (80.0-98.0); Mean Platelet Volume 8.9 fL (9.4-12.4); Monocytes Absolute Auto 0.6 X10*3/uL (0.1-1.2); Monocytes Percent Auto 7.2 % (2-11); Platelet Count 297 X10*3/uL (160-400); Red Cell Distribution Width 14.1 % (11.0-16.0); White Blood Count 7.8 X10*3/uL (4.8-10.8)
[2021-04-29 08:55] LABS: INTERNATIONAL NORM RATIO 1.1 (0.9-1.1); Prothrombin Time 12.2 SEC (9.9-13.0)
[2021-04-29 08:58] LABS: Partial Thromboplastin Time 31.3 SEC (24.1-38.0)
[2021-04-29 09:02] LABS: Alanine Aminotransferase 14 U/L (0-40); Albumin Level 4.5 g/dL (3.5-5.0); Alkaline Phosphatase 56 U/L (39-117); Anion Gap 9 (12-20); Aspartate Amino Transferase 24 U/L (5-37); Bilirubin Direct 0.2 mg/dL (0.0-0.5); Bilirubin Total 0.5 mg/dL (0.0-1.0); Blood Urea Nitrogen 12 mg/dL (9-16); Carbon Dioxide 34 mmol/L (22-29); Chloride 101 mmol/L (96-108); Creatinine Clr Calc Pharmacy 94.6; Estimated Glomerular Filt Rate > 60; Glucose Random 111 mg/dL (60-115); Magnesium 2.2 mg/dL (1.6-2.6); Potassium 4.1 mmol/L (3.3-5.1); Sodium 140 mmol/L (135-145); Total Protein 7.1 g/dL (6.5-8.0)
[2021-04-29 09:03] LABS: COVID-19 Test Negative (Negative); IDNOW Serial# 16C4AD1C
[2021-04-29 10:09] VITALS: BP 110/61; PULSE 72; RESP 16; TEMP 36.7; O2SAT 97
[2021-04-29] MEDS: iohexoL 350 MG/ML 100 ML INFUS..BTL IV (10:10)
== END 2021-04-29 12:15 | disposition left against medical advice (07) ==
PROVIDERS: Physician Assistant; Emergency Provider Emergency Medicine; PCP Internal Medicine
DX: R53.1 Weakness (principal); R20.0 Anesthesia of skin; Z20.822 Contact with and (suspected) exposure to COVID-19; F11.20 Opioid dependence, uncomplicated; Z86.73 Personal history of transient ischemic attack (TIA), and cerebral infarction without residual deficits
CPT/HCPCS: 36415; 70450; 70496; 70498; 80048; 80076; 83735; 85025; 85610; 85730; 87635; 93005; 99284; Q9967

== ENCOUNTER 2021-09-14 11:11 | Day surgery (SDC) | payer OTHER, SELFPAY ==
--- NOTE | 2021-09-14 11:56 | MHC.SHP ---
Pre-Procedural Eval Section A Date of Service: 09/14/21 Section B Chief Complaint: reflux Details of Present Illness: nausea and vomiting Relevant Family History (Specify if Yes): No Relevant Social History: None (ex substance use ) Present Medications: see Short Stay Collaborative assessment Medical History: Significant History (CVA (cerebral vascular accident) Drug abuse Duodenitis Epigastric discomfort GERD (gastroesophageal reflux disease) Nausea PFO (patent foramen ovale) Pure hypercholesterolemia Seizure) History of Previous Operations: Relevant previous surgery/procedure and date(s) Allergies: Allergies Allergy/AdvReac Type Severity Reaction Status Date / Time No Known Allergies Allergy Verified 03/27/21 13:28 [No Known Allergies*] Review of Systems Sugical H&P ROS: Negative: Constitution, Cardiovascular, Respiratory, Neurological, Psychiatric, Hem-Onc, Allergic/Immunologic, Gastrointestinal, Genitourinary, Musculoskeletal, Integumentary, Endocrine and Eyes/Ears/Nose/Throat Exam Surgical H&P Exam: Normal: HEENT, Normal: Heart, Normal: Lungs, Normal: Extremities, Normal: Abdomen, Normal: Skin and Normal: Neurological Plan Diagnosis/Plan: Unchanged I have reviewed the history and physical and performed a pertinent physical examination on my patient. No changes have occurred unless specified.
[2021-09-14 11:57] VITALS: BMI 26.3
[2021-09-14 12:02] VITALS: BP 122/73; PULSE 65; RESP 16; TEMP -12.5; TEMP 9.5; O2SAT 97
[2021-09-14] MEDS: Lactated Ringers 1,000 ML 100 ML IVCONT (12:18)
[2021-09-14 12:19] LABS: Amphetamine Screen Urine Not Detected (Not Detect); Barbiturates, Urine Not Detected (Not Detect); Benzodiazepines Screen Urine Not Detected (Not Detect); Cannabinoid Screen Urine Not Detected (Not Detect); Cocaine Screen Urine Not Detected (Not Detect); Fentanyl, urine Not Detected (Not Detect); Opiate Screen Urine Not Detected (Not Detect); Phencyclidine Screen Urine Not Detected (Not Detect)
--- NOTE | 2021-09-14 13:15 | P.OP_ITS ---
Operative Note Operative Note Date of Service: 09/14/21 Narrative: Procedure Description: EGD Indication: nausea, vomiting Anesthesia: MAC FLEXIBLE TRANSORAL UPPER GASTROINTESTINAL ENDOSCOPY UPPER ENDOSCOPY Consent: Indications for the procedure and potential complications of bleeding, perforation, reaction to medications and missed diagnosis were discussed with the patient and informed consent was obtained. Instrument: Olympus GIF H 190 J mid size upper endoscope Monitoring: Vital signs and clinical assessment, continuous EKG monitoring, Pulse oximetry, Carbon Dioxide monitoring and blood pressure monitoring were done throughout the procedure. Procedure: The patient was placed in the left lateral decubitis position and pre-procedure medications were administered and a bite block was placed. The endoscope was inserted into the mouth and advanced under direct vision to the third part of duodenum. A careful inspection was made as the upper endoscope was withdrawn including a retroflexed examination of the proximal stomach; Findings and interventions are described below. Findings: Larynx:normal Esophagus: GE junction at 40 cm, diaphragm hiatus at 42 cm, consistent with 2 cm sliding hiatal hernia, there was a 14 cm long segment of suspected Barretts esophagus [id number] by Fellows classification, random bx taken Stomach: Patchy gastric erythema. Biopsies were obtained. Grade 3 flap valve on retroflexed examination of the cardia with lax LES. There was reduced gastric movement. Duodenum: Normal bulb and descending duodenum, bx taken Intervention: Biopsies as noted above Impression/Findings: suspected long segment barretts hiatal hernia possible gastroparesis PLAN: GES repeat EGD in next few months for WATS 3D and [place] protocol biopsies high dose PPI, will need to be on PPI indefinitely
[2021-09-14 13:22] VITALS: BP 119/56; PULSE 59; RESP 16; TEMP 36.4; O2SAT 96
[2021-09-14 13:47] VITALS: BP 123/69; PULSE 63; RESP 16; O2SAT 96
[2021-09-14 14:02] VITALS: BP 109/42; PULSE 62; RESP 16; TEMP 36.6; O2SAT 96
[2021-09-14 14:19] VITALS: BP 107/47; PULSE 66; RESP 16; TEMP 36.6; O2SAT 96
[2021-09-14] MEDS: Acetaminophen 325 MG TABLET 975 MG PO (14:27)
== END 2021-09-14 15:16 | disposition home or self-care (01) ==
PROVIDERS: Nurse Practitioner; PCP Internal Medicine; Visit Provider Internal Medicine Gastroenterology
PROC: 0DJ08ZZ Inspection of Upper Intestinal Tract, Via Natural or Artificial Opening Endoscopic (ICD-10-PCS; CPT 43235; principal; 2021-09-14 12:50)
DX: K21.9 Gastro-esophageal reflux disease without esophagitis (principal); K44.9 Diaphragmatic hernia without obstruction or gangrene; K29.70 Gastritis, unspecified, without bleeding; K29.80 Duodenitis without bleeding; Z86.73 Personal history of transient ischemic attack (TIA), and cerebral infarction without residual deficits; Q21.1 Atrial septal defect; E78.00 Pure hypercholesterolemia, unspecified; F11.11 Opioid abuse, in remission; R56.9 Unspecified convulsions; Z79.899 Other long term (current) drug therapy
CPT/HCPCS: 43239; 80307; 88305; 88342; J2250

== ENCOUNTER 2021-10-17 15:02 | Outpatient (REF) | payer OTHER, SELFPAY ==
[2021-10-19 04:51] LABS: Lyme Abs Screen <0.90 index
== END 2021-10-17 15:03 | disposition home or self-care (01) ==
LOC: HO.LAB 15:02
PROVIDERS: PCP Internal Medicine; Visit Provider Nurse Practitioner Family
DX: R21 Rash and other nonspecific skin eruption (principal)
CPT/HCPCS: 36415; 86617; 86618

== ENCOUNTER 2021-12-22 09:30 | Outpatient (REF) | payer OTHER, SELFPAY ==
--- NOTE | ~2021-12-22 | XR_ITS ---
EXAMINATION: XR CERVICAL SPINE CLINICAL INFORMATION: M54.2 - Cervicalgia COMPARISON: None TECHNIQUE: 3 views of the cervical spine were obtained. FINDINGS: There is normal cervical lordosis. No cervical vertebral compression, spondylolisthesis, destructive process, or prevertebral soft tissue swelling. There are mild degenerative disc changes at C5-C6 with mild posterior spurring. Borderline degenerative disc changes at C4-C5. No cervical rib. Lung apices appear clear. XR/XR cervical spine 3V IMPRESSION: 1. Mild degenerative disc changes C5-C6 with mild posterior spurring. 2. Borderline degenerative disc changes C4-C5.
[2021-12-22 09:56] LABS: MANUAL DIFF FLAG NO
[2021-12-22 10:13] LABS: Basophils Absolute Auto 0.1 X10*3/uL (0.0-0.2); Basophils Percent Auto 0.8 % (0-2); Eosinophils Absolute Auto 0.2 X10*3/uL (0.0-0.4); Eosinophils Percent Auto 2.8 % (0-4); Hematocrit 43.3 % (42.0-52.0); Hemoglobin 13.8 g/dl (14.0-18.0); Imm Gran Abs Auto 0.07 X10*3/uL (0.00-0.03); Imm Gran Pct Auto 0.9 % (0.0-0.4); Lymphocytes Absolute Auto 2.2 X10*3/uL (1.2-4.9); Lymphocytes Percent Auto 27.5 % (20-40); Mean Corpuscular HGB Conc 31.9 g/dl (31.0-36.0); Mean Corpuscular Hemoglobin 29.8 pg (27.0-33.0); Mean Corpuscular Volume 93.5 fL (80.0-98.0); Mean Platelet Volume 9.6 fL (9.4-12.4); Monocytes Absolute Auto 0.5 X10*3/uL (0.1-1.2); Monocytes Percent Auto 6.7 % (2-11); Neutrophils Absolute Auto 4.8 x10*3/uL (2.0-8.3); Neutrophils Percent Auto 61.3 % (45-73); Platelet Count 247 X10*3/uL (160-400); Red Blood Count 4.63 X10*6/uL (4.60-5.80); Red Cell Distribution Width 12.7 % (11.0-16.0); White Blood Count 7.9 X10*3/uL (4.8-10.8)
[2021-12-22 10:22] LABS: Appearance Urine Clear; Color Urine Yellow; Glucose Urine UA Negative (Negative); Leukocyte Esterase Urine Negative (Negative); Nitrite Urine Negative (Negative); PH 5.5 (5.0-9.0); Specific Gravity - Urine >= 1.030 (1.005-1.025); Urine Blood Negative (Negative); Urine Ketones Trace mg/dL (Negative); Urine Protein Negative (Neg-Trace)
[2021-12-22 10:47] LABS: Alanine Aminotransferase 9 U/L (0-40); Albumin Level 4.6 g/dL (3.5-5.0); Alkaline Phosphatase 44 U/L (39-117); Anion Gap 15 (12-20); Aspartate Amino Transferase 18 U/L (5-37); Bilirubin Total 0.4 mg/dL (0.0-1.0); Blood Urea Nitrogen 13 mg/dL (9-16); Carbon Dioxide 25 mmol/L (22-29); Chloride 104 mmol/L (96-108); Cholesterol 201 mg/dL; Estimated Glomerular Filt Rate > 60; Glucose Fasting 113 mg/dL (60-99); HDL Cholesterol 46 mg/dL; LDL Cholesterol Calculated 133 mg/dl; Potassium 4.4 mmol/L (3.3-5.1); Sodium 140 mmol/L (135-145); Total Protein 7.1 g/dL (6.5-8.0); Triglycerides 110 mg/dL
[2021-12-22 11:10] LABS: TSH reflex Free T4 2.99 uIU/mL (0.32-4.0)
== END 2021-12-22 09:31 | disposition home or self-care (01) ==
LOC: HO.XRAY 09:30
PROVIDERS: PCP Internal Medicine; Visit Provider Internal Medicine
DX: Z00.00 Encounter for general adult medical examination without abnormal findings (principal); M54.2 Cervicalgia; R30.0 Dysuria; E78.00 Pure hypercholesterolemia, unspecified; E55.9 Vitamin D deficiency, unspecified
CPT/HCPCS: 36415; 72040; 80053; 80061; 81003; 82306; 84443; 85025

== ENCOUNTER → 2022-01-09 07:55 | Outpatient (REF) | payer OTHER, SELFPAY ==
--- NOTE | ~2022-01-09 | NM_ITS ---
EXAMINATION: RADIONUCLIDE SOLID FOOD GASTRIC EMPTYING 4-HOUR STUDY CLINICAL INFORMATION: Early satiety. COMPARISON: No previous gastric emptying study is available for comparison. TECHNIQUE: A standard meal consisting of 4 oz of Egg Beaters brand equivalent tagged with 890 microcuries Tc-99m Sulfur Colloid, 8 oz water and 2 slices of toast with jelly was administered orally to the patient. Images were obtained using a dual head gamma camera in the anterior and posterior projections over of the stomach immediately post ingestion and at hourly intervals up to 4 hours post ingestion. The anterior and posterior counts at each time interval were averaged using the geometric mean and expressed as percentage of the immediate post ingestion counts. FINDINGS: There is good visualization of activity in the stomach immediately post ingestion. As the study progresses, there is good clearance of activity from the stomach and visualization of progressively increasing small bowel activity. By the end of the study, there is almost no retention noted in the stomach. Retention in the stomach at each time interval was: 1 hour 79% (normal 37%-90%) 2 hours 49% (normal 30%-60%) 3 hours 10% 4 hours 4% (normal 0%-10%) NM/NM gastric emptying study IMPRESSION: Normal 4-hour solid food gastric emptying study.
== END ==
LOC: HO.NUCMED 07:55
PROVIDERS: PCP Internal Medicine; Visit Provider Internal Medicine Gastroenterology
DX: R68.81 Early satiety (principal)
CPT/HCPCS: 78264; A9541

== ENCOUNTER 2022-02-08 14:17 | Emergency (ER) | payer OTHER, SELFPAY ==
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
[2022-02-08 15:34] VITALS: BP 110/73; PULSE 75; RESP 18; TEMP 36.6; O2SAT 97; BMI 26.9
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
[2022-02-08] MEDS: Ibuprofen 600 MG TABLET PO (16:51)
== END 2022-02-08 16:52 | disposition home or self-care (01) ==
PROVIDERS: Emergency Provider Internal Medicine; PCP Internal Medicine
DX: M54.2 Cervicalgia (principal); M54.50 Low back pain, unspecified
CPT/HCPCS: 72125; 99283; 99284

== ENCOUNTER 2022-06-07 07:59 | Day surgery (SDC) | payer OTHER, SELFPAY ==
[2022-06-01 19:50] VITALS: BMI 29.5
--- NOTE | 2022-06-06 12:16 | HO.ANESPROP2 ---
Documented by User: Yanely Reilly NP 06/06/22 12:44 HPI - Anesthesia Eval Consult details Narrative: 32yo M for Upper Endoscopy with WATS 3D Hx of IVDA, PFO with CVA x 2 (2015, 2019). Cardiac cleared 02/2021 for 08/2021 EGD[address] to Dr Macdonald for PFO closure 06/2021. No f/u by patient. Case reviewed with Dr Joseph TRIPLETT Active Problems Active Problems: All Active Problems (Updated 06/04/22 @ 13:35 by Holley Woodson RN) Preoperative cardiovascular examination (Acute) Headache (Acute) Rash and other nonspecific skin eruption (Acute) Annual physical exam (Acute) Neck pain (Acute) Wyatt's esophagus with esophagitis (Acute) CVA (cerebral vascular accident) (Acute) Overweight (BMI 25.0-29.9) (Acute) History of substance abuse (Acute) Epilepsy (Acute) PFO with atrial septal aneurysm (Acute) Cerebrovascular accident (CVA) due to embolism of right middle cerebral artery (Acute) GERD (gastroesophageal reflux disease) (Acute) Duodenitis (Acute) Pure hypercholesterolemia (Acute) Nausea (Acute) Epigastric discomfort (Acute) Past Medical History Medical History (Updated 06/04/22 @ 13:35 by Holley Woodson RN) Cerebrovascular accident (CVA) due to embolism of right middle cerebral artery CVA (cerebral vascular accident) Drug abuse Duodenitis Epigastric discomfort Epilepsy GERD (gastroesophageal reflux disease) History of substance abuse Nausea Overweight (BMI 25.0-29.9) PFO (patent foramen ovale) PFO with atrial septal aneurysm Pure hypercholesterolemia Seizure Family History Family History Father No problems noted. Mother No problems noted. Surgical History Surgical History (Updated 06/04/22 @ 13:24 by Holley Woodson RN) History of esophagogastroduodenoscopy (EGD) History of surgery Social History Social History Household Members: Spouse and Children Housing: Apartment Are you a primary mall plant caretaker to a significant other at home: No Do you presently have visiting nurse or other home services: No Alcohol intake: never Patient Tobacco Use Status: Never used Tobacco Smoked in Last 30 Days: No Second Hand Smoke Exposure: No Use of substances other than those prescribed or required for medical reasons: No Have you been hit, kicked, punched, or otherwise hurt by someone within the past year? 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 Cognitive needs: No Hearing needs: No Vision needs: No Meds Allergies Allergy/AdvReac Type Severity Reaction Status Date / Time No Known Allergies Allergy Verified 04/20/22 09:12 [No Known Allergies*] Home Medications Medication Instructions Recorded Confirmed Last Taken Type buprenorphine 8 mg-naloxone 2 mg 2 tab sublingual DAILY 05/10/20 04/20/22 Unknown History sublingual tablet Exam Exam Date and Time: June 06, 2022 1216 Height,Weight and Vital Signs: Height 6 ft 2 in Weight 104.326 kg Pertinent Lab Results Pertinent Lab Results: Laboratory Tests 12/22/21 12/22/21 09:54 09:54 WBC 7.9 Hgb 13.8 L Hct 43.3 Plt Count 247 Sodium 140 Potassium 4.4 Chloride 104 Carbon Dioxide 25 BUN 13 Creatinine 1.27 Assessment and Plan Assessment Anesthesia Assessment: Chart Reviewed Documented by User: Tammy Mathias MD 06/07/22 08:43 [facility] Past Medical History Medical History (Updated 06/04/22 @ 13:35 by Holley Woodson RN) Cerebrovascular accident (CVA) due to embolism of right middle cerebral artery CVA (cerebral vascular accident) Drug abuse Duodenitis Epigastric discomfort Epilepsy GERD (gastroesophageal reflux disease) History of substance abuse Nausea Overweight (BMI 25.0-29.9) PFO (patent foramen ovale) PFO with atrial septal aneurysm Pure hypercholesterolemia Seizure Family History Family History Father No problems noted. Mother No problems noted. Family history of problems with anesthesia: No Surgical History Surgical History (Updated 06/04/22 @ 13:24 by Holley Woodson RN) History of esophagogastroduodenoscopy (EGD) History of surgery History of Problems with Anesthesia: No Social History Social History Household Members: Spouse and Children Housing: Apartment Are you a primary mall plant caretaker to a significant other at home: No Do you presently have visiting nurse or other home services: No Alcohol intake: never Patient Tobacco Use Status: Never used Tobacco Smoked in Last 30 Days: No Second Hand Smoke Exposure: No Use of substances other than those prescribed or required for medical reasons: No Have you been hit, kicked, punched, or otherwise hurt by someone within the past year? 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 Cognitive needs: No Hearing needs: No Vision needs: No Meds Allergies Allergy/AdvReac Type Severity Reaction Status Date / Time No Known Allergies Allergy Verified 04/20/22 09:12 [No Known Allergies*] Home Medications Medication Instructions Recorded Confirmed Last Taken Type buprenorphine 8 mg-naloxone 2 mg 2 tab sublingual DAILY 05/10/20 04/20/22 Unknown History sublingual tablet Exam Airway Mallampati Class: II (edentulous on top, no loose teeth, missing some on bottom) TM Dist: >3cm Neck ROM: Full Heart: rrr Lungs: cta Assessment and Plan Assessment Anesthesia Assessment: Anesthesia Plan Discussed Final Anesthetic Review Family History of Problems with Anesthesia: No History of Problems with Anesthesia: No NPO: Yes ASA Class: III Final Preanesthetic Review: No Changes in Pt Med Stat, Meds/Allgs Chart Reviewed and Consent Obtained/Reviewed Patient Risk: Intermediate Procedure Risk: Intermediate Anesthetic Plan Anesthetic Plan: MAC: Disposition: Standard PACU
[2022-06-07 08:13] VITALS: BP 116/66; PULSE 63; RESP 16; TEMP 36.5; O2SAT 96; BMI 29.5
[2022-06-07] MEDS: Lactated Ringers 1,000 ML 100 ML IVCONT (08:26)
[2022-06-07 08:34] LABS: Amphetamine Screen Urine Not Detected (Not Detect); Barbiturates, Urine Not Detected (Not Detect); Benzodiazepines Screen Urine Not Detected (Not Detect); Cannabinoid Screen Urine Not Detected (Not Detect); Cocaine Screen Urine Not Detected (Not Detect); Fentanyl, urine Not Detected (Not Detect); Opiate Screen Urine Not Detected (Not Detect); Phencyclidine Screen Urine Not Detected (Not Detect)
--- NOTE | 2022-06-07 09:20 | MHC.SHP ---
Pre-Procedural Eval Section A Date of Service: 06/07/22 Section B Chief Complaint: Duodenitis without bleeding/reflux Details of Present Illness: hx of long segment barretts needs surveillance Relevant Family History (Specify if Yes): No Relevant Social History: None Present Medications: see Short Stay Collaborative assessment Medical History: Significant History (Cerebrovascular accident (CVA) due to embolism of right middle cerebral artery CVA (cerebral vascular accident) Drug abuse Duodenitis Epigastric discomfort Epilepsy GERD (gastroesophageal reflux disease) History of substance abuse Nausea Overweight (BMI 25.0-29.9) PFO (patent foramen ovale) PFO with) History of Previous Operations: Relevant previous surgery/procedure and date(s) (History of esophagogastroduodenoscopy (EGD) History of surgery) Allergies: Allergies Allergy/AdvReac Type Severity Reaction Status Date / Time No Known Allergies Allergy Verified 04/20/22 09:12 [No Known Allergies*] Review of Systems Sugical H&P ROS: Negative: Constitution, Cardiovascular, Respiratory, Neurological, Psychiatric, Hem-Onc, Allergic/Immunologic, Gastrointestinal, Genitourinary, Musculoskeletal, Integumentary, Endocrine and Eyes/Ears/Nose/Throat Exam Surgical H&P Exam: Normal: HEENT, Normal: Heart, Normal: Lungs, Normal: Extremities, Normal: Abdomen, Normal: Skin and Normal: Neurological Plan Diagnosis/Plan: Unchanged I have reviewed the history and physical and performed a pertinent physical examination on my patient. No changes have occurred unless specified. Time Spent With Patient Time: Total time managing care of this patient today ____ minutes.
--- NOTE | 2022-06-07 09:22 | P.OP_ITS ---
Operative Note Operative Note Date of Service: 06/07/22 Narrative: Procedure Description: EGD Indication: hx of barretts Anesthesia: MAC FLEXIBLE TRANSORAL UPPER GASTROINTESTINAL ENDOSCOPY UPPER ENDOSCOPY Consent: Indications for the procedure and potential complications of bleeding, perforation, reaction to medications and missed diagnosis were discussed with the patient and informed consent was obtained. Instrument: Olympus GIF H 190 J mid size upper endoscope Monitoring: Vital signs and clinical assessment, continuous EKG monitoring, Pulse oximetry, Carbon Dioxide monitoring and blood pressure monitoring were done throughout the procedure. Procedure: The patient was placed in the left lateral decubitis position and pre-procedure medications were administered and a bite block was placed. The endoscope was inserted into the mouth and advanced under direct vision to the third part of duodenum. A careful inspection was made as the upper endoscope was withdrawn including a retroflexed examination of the proximal stomach; Findings and interventions are described below. Findings: Larynx:normal Esophagus: GE junction at 40? cm, diaphragm hiatus at 42 cm, consistent with 2 cm sliding hiatal hernia, there was a 14 cm long segment of Barretts esophagus [id number] by [place] classification, Brushings taken for WATS 3D, also biopsies per [place] protocol. no focal nodularity seen Stomach: Patchy gastric erythema. Grade 3 flap valve on retroflexed examination of the cardia with lax LES. There was reduced gastric movement. Duodenum: Normal bulb and descending duodenum, Intervention: Biopsies as noted above and brushings Impression/Findings: suspected long segment barretts hiatal hernia Impression/Findings: long segment barretts PLAN: await results continue with PPI if path neg for dysplasia then repeat EGD in 1-2 yrs
[2022-06-07 10:27] VITALS: BP 108/59; PULSE 59; RESP 16; TEMP 36.3; O2SAT 96
[2022-06-07 10:42] VITALS: BP 111/49; PULSE 77; RESP 16; O2SAT 97
== END 2022-06-07 11:26 | disposition home or self-care (01) ==
PROVIDERS: Nurse Practitioner; PCP Internal Medicine; Visit Provider Internal Medicine Gastroenterology
PROC: 0DJ08ZZ Inspection of Upper Intestinal Tract, Via Natural or Artificial Opening Endoscopic (ICD-10-PCS; CPT 43235; principal; 2022-06-07 09:30)
DX: K22.70 Barrett's esophagus without dysplasia (principal); K44.9 Diaphragmatic hernia without obstruction or gangrene; K21.9 Gastro-esophageal reflux disease without esophagitis; Z87.19 Personal history of other diseases of the digestive system; Z86.73 Personal history of transient ischemic attack (TIA), and cerebral infarction without residual deficits; Z79.899 Other long term (current) drug therapy
CPT/HCPCS: 43239; 80307; 88305

== ENCOUNTER 2023-03-05 09:50 | Outpatient (AMB) | payer OTHER, SELFPAY ==
[2023-03-05 09:51] VITALS: BP 120/82; PULSE 88; O2SAT 96; BMI 27.2
--- NOTE | 2023-03-05 09:51 | MHC.PC.OV ---
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 Accompanied by: Self / Same As Patient Allergies No Known Allergies [No Known Allergies*] Allergy (Verified 03/05/23 10:09) Medication List - Last Reconciled 03/05/23 by Raghavendra Villarreal MD atorvastatin 40 mg PO BEDTIME 90 days buprenorphine-naloxone 8-2 mg 2 tabs sublingual DAILY [id number]-xcyk 50-300-40 mg (Fioricet) 1 cap PO Q8H PRN 30 days cyclobenzaprine 10 mg PO TID PRN ibuprofen 800 mg PO Q8H PRN lidocaine 5% 1 patch topical DAILY pantoprazole 40 mg PO DAILY 90 days tizanidine 4 mg PO BEDTIME PRN 30 days Tobacco use date assessed: 03/05/23 Dental Screening Dental Screen Date: 03/05/23 Did you have a dental visit in the last 12 months?: Yes Did you have a dental problem in the last 6 months where you did not have access to dental care?: No Was dental information given to patient?: Patient has dentist HPI Nausea, Congestion, Cough HPI Details Patient comes in today complaining of increased cough and congestion for the past 5 days States that a couple of his children came down with RSV 1 to 2 weeks ago and for the past couple of weeks, everyone in his household has been sick with respiratory symptoms and he started with similar symptoms a few days ago Relates (+) some fatigue and mild sore throat recently although his throat feels fine now He denies any fever, headaches or dizziness Relates (+) some chest congestion and on and off cough - coughs up some whitish phlegm at times lately He denies any SOB or chest pains No nausea/vomiting, no abdominal pain No change in bowel habits noted States that he has not really needed to take any meds for his cough or congestion so far and feels like his symptoms are starting to clear up He is planning to return to work in a couple of days after taking off from work for the past 5 days and was advised that he will need to get a doctor's note clearing him to return to work without restrictions [facility] Medical History Overweight (BMI 25.0-29.9) History of substance abuse Epilepsy PFO with atrial septal aneurysm Cerebrovascular accident (CVA) due to embolism of right middle cerebral artery Seizure CVA (cerebral vascular accident) Drug abuse PFO (patent foramen ovale) GERD (gastroesophageal reflux disease) Duodenitis Pure hypercholesterolemia Nausea Epigastric discomfort Surgical History History of esophagogastroduodenoscopy (EGD) History of surgery Family History Father No problems noted. Mother No problems noted. 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 1. Little interest or pleasure in doing things: not at all 2. Feeling down, depressed, or hopeless: not at all 3. Trouble falling or staying asleep, or sleeping too much: not at all 4. Feeling tired or having little energy: not at all 5. Poor appetite or overeating: not at all 6. Feeling bad about yourself - or that you are a failure or have let yourself or your family down: not at all 7. Trouble concentrating on things, such as reading the newspaper or watching television: not at all 8. Moving or speaking so slowly that other people could have noticed. Or the opposite - being so fidgety or restless that you have been moving around a lot more than usual: not at all 9. Thoughts that you would be better off or of hurting yourself in some way: not at all Total score: 0 Depression Screening Interpretation: Negative Depression Screening Done: Yes [id number] - PHQ-9 Billing: Yes Source: Developed by Drs. Mp Ryan, Orin Guzman, Patel Yen and colleagues, with an educational dung from [employer]. Thrive Questionnaire Date Thrive assessed: 03/05/23 I am a: Patient What is your living situation today?: I have a steady place to live Within the past 12 months, did the food you bought not last and you didn't have the money to get more?: Never true Within the past 12 months, did you worry whether your food would run out before you got money to buy more?: Never true Do you have trouble paying for medicines?: No Do you have trouble getting transportation to medical appointments?: No Do you have trouble paying your heating and electricity bill?: No Do you have trouble taking care of your child, family member or friend?: No Do you have trouble with day-to-day activities such as bathing, preparing meals, shopping, managing finances, etc.?: No Are you currently unemployed and looking for a job?: No Are you interested in more education?: No Please select the resources that you would like help with: None Currently or been in a relationship where the following occur: no concerns reported AUDIT C Alcohol Use Questionnaire (AUDIT-C) 1. How often do you have a drink containing alcohol?: Never 2. How many drinks containing alcohol do you have on a typical day when you are drinking?: 1 or 2 3. How often do you have six or more drinks on one occasion?: Never Total Score: 0 Score Reviewed/Action Taken: Yes STEPHANIE-7 AMB Questionnaire STEPHANIE-7 Date STEPHANIE - 7 assessed: 03/05/23 Feeling nervous, anxious, or on edge: 0 = Not at all Not being able to stop or control worryin = Not at all Worrying too much about different things: 0 = Not at all Trouble relaxin = Not at all Being so restless that it is hard to sit still: 0 = Not at all Becoming easily annoyed or irritable: 0 = Not at all Feeling afraid as if something awful might happen: 0 = Not at all Total STEPHANIE-7 score (0-4 normal; 5-9 mild; 10-14 moderate; 15-21 severe): 0 Source: Developed by Drs. Mp Ryan, Orin Guzman, Patel Yen and colleagues, with an educational dung from [employer]. Review of Systems Const Denies chills, Denies fatigue, Denies fever(s) and Denies headache(s) ENT Denies dysphagia, Denies dizziness, Denies otalgia, Denies headache(s), Reports nasal congestion (on and off), Reports nasal discharge, Denies neck pain, Denies odynophagia and Denies sore throat Card Denies chest pain, Denies palpitations and Denies dyspnea Resp Reports chest congestion (mild), Reports cough (on and off, coughs up whitish phlegm at times), Denies pain with cough, Denies dyspnea and Denies wheezing GI Denies abdominal pain, Denies constipation, Denies dysphagia, Denies heartburn, Denies diarrhea, Denies nausea, Denies odynophagia and Denies vomiting Denies dysuria, Denies nocturia and Denies urinary frequency Musc Denies back pain and Denies neck pain Skin/Breast Denies rash Neuro Denies dizziness and Denies headache(s) Endo Denies fatigue and Denies palpitations Aller/Immun Denies wheezing Physical exam (Primary Care) Vital Signs: Last Vital Signs Pulse 88 03/05/23 09:51 BP 120/82 03/05/23 09:51 Pulse Ox 96 03/05/23 09:51 Oxygen Delivery Method Room Air 03/05/23 09:51 BMI result Body Mass Index 27.2 Tobacco/Smoking Status: Tobacco use Status Tobacco use date assessed 03/05/23 03/05/23 09:56 Patient Tobacco Use Status Never used Tobacco 03/05/23 09:56 e-Cigarette/Vaping Use Never Used 03/05/23 09:56 PHQ-9: PHQ-9 Score PHQ-9: Total score 0 03/05/23 10:20 Depression Screening Interpretation: Negative Thrive Assessment: Date of Thrive Assessment Date Thrive assessed 03/05/23 03/05/23 09:56 Currently or been in a relationship where the following occur: no concerns reported Const General: no acute distress and alert HENMT Ears: TM's normal bilaterally and EAC's normal General nose exam: Nasal discharge present clear Face and sinus: Yes sinuses nontender Throat: Yes posterior oropharynx normal and Yes tonsils normal (no TP congestion noted) Neck Neck: Yes no lymphadenopathy and Yes supple Resp Auscultation: no rales, rhonchi (occasional) throughout, no wheezes and bronchial breath sounds (occasional) bilateral Cardio Rate: regular rate Rhythm: regular rhythm Heart sounds: no murmurs GI Palpation (GI): Soft to palpation and nontender Auscultation: normal bowel sounds Extrem General: Yes no clubbing, cyanosis or edema Assessment and Plan Assessment & Plan (1) Respiratory tract infection: Code(s): J98.8 - Other specified respiratory disorders Plan: Advised that his current respiratory symptoms are most likely viral in etiology - possibly RSV as a couple of his children tested positive for it recently Patient states that aside from some cough and congestion, he has no fever or SOB or other concerning symptoms, so have advised him to just continue with symptomatic Tx with OTCs if needed Advised him as well to increase his oral fluid intake and to get as much rest as he can although 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
== END 2023-03-05 11:39 | disposition home or self-care (01) ==
PROVIDERS: PCP Internal Medicine; Visit Provider Internal Medicine
DX: J98.8 Other specified respiratory disorders (principal)
CPT/HCPCS: 99213

== ENCOUNTER 2023-07-09 12:56 | Outpatient (AMB) | payer OTHER, SELFPAY ==
[2023-07-09 13:00] VITALS: BP 140/86; PULSE 76; BMI 29.9
--- NOTE | 2023-07-09 13:00 | A.OFFPC_ITS ---
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: No Corporate Real Estate Specialist: Not Required per policy Accompanied by: Self / Same As Patient Allergies No Known Allergies [No Known Allergies*] Allergy (Verified 07/09/23 13:14) Medication List - Last Reconciled 07/09/23 by Raghavendra Villarreal MD atorvastatin 40 mg PO BEDTIME 90 days buprenorphine-naloxone 8-2 mg 2 tabs sublingual DAILY ckenwikagr-lijguhucxxvor-pqqf 50-300-40 mg (Fioricet) 1 cap PO Q8H PRN 30 days cyclobenzaprine 10 mg PO TID PRN ibuprofen 800 mg PO Q8H PRN lidocaine 5% 1 patch topical DAILY pantoprazole 40 mg PO DAILY 90 days tizanidine 4 mg PO BEDTIME PRN 30 days Tobacco use date assessed: 03/05/23 Dental Screening Dental Screen Date: 03/05/23 HPI pe HPI Details Patient comes in today for his annual physical examination States that he has been experiencing recurrent left lower extremity swelling for years Notes that the swelling more often occurs towards the end of the day and is usually cleared up by the next morning Patient states that he stands on his feet all day at work He denies any recent leg pains or claudication - states that he can walk and move around without any significant issues although his foot and leg can feel tight and uncomfortable when the swelling increases He denies any swelling on his right leg and foot States that he feels okay otherwise He denies any headaches or dizziness Denies any chest pains, no SOB No nausea/vomiting, no abdominal pain No change in bowel habits noted He denies any acute urinary symptoms Patient also has not had any follow up labs done since November 2021 [facility] Medical History (Updated 07/09/23 @ 13:59 by Raghavendra Villarreal MD) Overweight (BMI 25.0-29.9) History of substance abuse Epilepsy PFO with atrial septal aneurysm Cerebrovascular accident (CVA) due to embolism of right middle cerebral artery Seizure CVA (cerebral vascular accident) Drug abuse PFO (patent foramen ovale) GERD (gastroesophageal reflux disease) Duodenitis Pure hypercholesterolemia Surgical History History of esophagogastroduodenoscopy (EGD) History of surgery Family History Father No problems noted. Mother No problems noted. 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 1. Little interest or pleasure in doing things: not at all 2. Feeling down, depressed, or hopeless: not at all 3. Trouble falling or staying asleep, or sleeping too much: not at all 4. Feeling tired or having little energy: not at all 5. Poor appetite or overeating: not at all 6. Feeling bad about yourself - or that you are a failure or have let yourself or your family down: not at all 7. Trouble concentrating on things, such as reading the newspaper or watching television: not at all 8. Moving or speaking so slowly that other people could have noticed. Or the opposite - being so fidgety or restless that you have been moving around a lot more than usual: not at all 9. Thoughts that you would be better off or of hurting yourself in some way: not at all Total score: 0 Depression Screening Interpretation: Negative Depression Screening Done: Yes 57852 - PHQ-9 Billing: Yes Source: Developed by Drs. Mp Ryan, Orin Guzman, Patel Yen and colleagues, with an educational dung from [employer]. Thrive Questionnaire Date Thrive assessed: 07/09/23 I am a: Patient What is your living situation today?: I have a steady place to live Within the past 12 months, did the food you bought not last and you didn't have the money to get more?: Never true Within the past 12 months, did you worry whether your food would run out before you got money to buy more?: Never true Do you have trouble paying for medicines?: No Do you have trouble getting transportation to medical appointments?: No Do you have trouble paying your heating and electricity bill?: No Do you have trouble taking care of your child, family member or friend?: No Do you have trouble with day-to-day activities such as bathing, preparing meals, shopping, managing finances, etc.?: No Are you currently unemployed and looking for a job?: No Are you interested in more education?: No Please select the resources that you would like help with: None Currently or been in a relationship where the following occur: no concerns reported THRIVE Score: 0 AUDIT C Alcohol Use Questionnaire (AUDIT-C) 1. How often do you have a drink containing alcohol?: Never 2. How many drinks containing alcohol do you have on a typical day when you are drinking?: 1 or 2 3. How often do you have six or more drinks on one occasion?: Never Total Score: 0 Score Reviewed/Action Taken: Yes STEPHANIE-7 AMB Questionnaire STEPHANIE-7 Date STEPHANIE - 7 assessed: 03/05/23 Source: Developed by Drs. Mp Ryan, Orin Guzman, Patel Yen and colleagues, with an educational dung from [employer]. Review of Systems Const Denies chills, Denies fatigue, Denies fever(s), Denies headache(s), Denies malaise and Denies weakness Eyes Denies blurry vision, Denies change in vision, Denies irritation and Denies itchy eyes ENT Denies dysphagia, Denies dizziness, Denies otalgia, Denies headache(s), Denies nasal congestion, Denies neck pain, Denies odynophagia and Denies sore throat Card Denies chest pain, Denies rapid heart rate, Denies irregular heart rhythm, Denies palpitations and Denies dyspnea Resp Denies chest congestion, Denies cough, Denies dyspnea and Denies wheezing GI Denies abdominal pain, Denies bloating, Denies constipation, Denies dysphagia, Denies heartburn, Denies diarrhea, Denies nausea, Denies odynophagia and Denies vomiting Denies hematuria, Denies difficulty urinating, Denies dysuria, Denies urinary frequency and Denies urinary urgency Musc Denies back pain, Denies arthralgias, Denies joint swelling, Denies muscle weakness and Denies neck pain Skin/Breast Denies change in pigmentation, Denies lesions, Denies rash and Denies unusual bruising Neuro Denies dizziness, Denies headache(s), Denies paresthesias and Denies weakness Endo Denies fatigue and Denies palpitations Gigi/Lymph Details: recurrent swelling of his left lower extremity, usually towards the end of the day and at night Aller/Immun Denies itchy eyes and Denies wheezing Physical exam (Primary Care) Vital Signs: Last Vital Signs Pulse 76 07/09/23 13:00 BP 140/86 H 07/09/23 13:00 Oxygen Delivery Method Room Air 07/09/23 13:00 BMI result Body Mass Index 29.9 Tobacco/Smoking Status: Tobacco use Status Tobacco use date assessed 03/05/23 07/09/23 13:01 Patient Tobacco Use Status Never used Tobacco 07/09/23 13:01 e-Cigarette/Vaping Use Never Used 07/09/23 13:01 Depression Screening Interpretation: Negative Thrive Assessment: Date of Thrive Assessment Date Thrive assessed 03/05/23 07/09/23 13:01 Currently or been in a relationship where the following occur: no concerns reported Const General: no acute distress, alert and awake Orientation/consciousness: patient oriented x3 HENMT Head: Yes normocephalic and Yes atraumatic Ears: external ears normal, TM's normal bilaterally and EAC's normal General nose exam: No nasal discharge present Face and sinus: Yes normal facial exam and Yes sinuses nontender Teeth and gingiva: dentition normal Throat: Yes posterior oropharynx normal and Yes tonsils normal (no TP congestion) Eyes Eyelids: Yes eyelids normal Conjunctivae: conjunctivae normal Pupils: Equal, round and reactive pupils present EOM: EOMs intact bilaterally Neck Neck: Yes no lymphadenopathy and Yes supple Thyroid: Thyroid normal Resp Auscultation: clear to auscultation bilaterally, no rales and no wheezes Cardio Rate: regular rate Rhythm: regular rhythm Heart sounds: no murmurs GI Palpation (GI): Soft to palpation, nontender and No hepatosplenomegaly present Auscultation: normal bowel sounds General: Yes no CVA tenderness Back/Spine/Pelvis Back: no CVA tenderness Thoracic/Lumbar Spine: thoracic and lumbar spine normal to inspection Skin Lesions: no lesions Rashes: no rashes Neuro General: patient oriented x3, moves all extremities, no focal motor deficits and CN's II-XI intact bilaterally Cranial nerves: Yes Equal, round and reactive pupils present Cognition (Neuro): normal cognition Gait exam (Neuro): Normal gait present Extrem Other: (+) prominent / large varicose veins noted over the posteromedial aspect of the proximal left lower leg General: Yes no clubbing, cyanosis or edema Assessment and Plan Assessment & Plan (1) Annual physical exam: Code(s): Z00.00 - Encounter for general adult medical examination without abnormal findings Plan: Check labs (2) Headache: Code(s): R51.9 - Headache, unspecified Qualifiers: Headache type: unspecified Headache chronicity pattern: acute headache Intractability: not intractable Qualified Code(s): R51.9 - Headache, unspecified Plan: These are likely muscle contraction headache, tension headache or migraine although patient states that his headaches have been much better controlled lately Continue Fioricet PRN He is advised again to call if his headaches persist or worsen Follow up with neurology as scheduled (3) PFO with atrial septal aneurysm: Comment: follows w/ @ cardiology-last office visit 06/2021 & [place] [facility] [place]s): Q21.1 - Atrial septal defect Plan: LORI done in 2019 revealed the presence of a PFO and atrial septal aneurysm Surgical correction and closure was advised then - patient was referred by cardiology to Dr. Macdonald last year and he was supposed to follow up with Dr. Macdonald regularly for this and we will defer the decision for closure of patient's PFO to Dr. Macdonald but unclear at this time if patient is keeping his appointments with Dr. Macdonald or not (4) CVA (cerebral vascular accident): Comment: 03/2019 (underwent mechanical thrombectomy) and 2015 (received tPA) at [facility] with little residual symptoms Code(s): I63.9 - Cerebral infarction, unspecified Qualifiers: CVA mechanism: unspecified Qualified Code(s): I63.9 - Cerebral infarction, unspecified Plan: Involving primarily the middle cerebral artery. likely a result of his PFO S/P 2 separate CVAs - first one in 2016 (received tPA) and second occurred in 03/2021 (underwent mechanical thombectomy) - patient currently has minimal residual neurologic symptoms (5) Pure hypercholesterolemia: Code(s): E78.00 - Pure hypercholesterolemia, unspecified Plan: Patient is advised that he has not had any follow up labs done since November 2021 and cautioned that his LDL cholesterol was high back then at 133 mg/dl Reinforced low cholesterol diet He was started on Atorvastatin 40 mg a couple of years ago but patient appears to be currently no longer on the Rx as it has not been refilled in over a year Will recheck his fasting lipids in 4 months for follow up (6) Epilepsy: Code(s): G40.909 - Epilepsy, unspecified, not intractable, without status epilepticus Qualifiers: Epilepsy type: unspecified Intractability: not intractable Status epilepticus: without status epilepticus Qualified Code(s): G40.909 - Epilepsy, unspecified, not intractable, without status epilepticus Plan: Used to take Keppra but has not been on Rx in a few years - was reportedly discontinue by neurology previously He has had no seizures in years (seizure was most likely triggered by withdrawal when he tried to stop using heroin abruptly years ago) but he apparently was brought to the ER at [facility] sometime in February 2023 due to active seizures - patient ended up leaving the ER AMA Was seeing neurology for follow up in the past but has not been back with them in a few years now - we referred him back to neurology at his last visit but it looks like he has not been seen (7) Wyatt's esophagus with esophagitis: Code(s): K22.70 - Wyatt's esophagus without dysplasia; K20.90 - Esophagitis, unspecified without bleeding Plan: S/P EGD with Bx in August 2021, confirming Wyatt's esophagus on pathology Reinforced dietary restrictions Continue Pantoprazole 40 mg QD Follow up with GI as scheduled (8) Edema of left lower extremity due to peripheral venous insufficiency: Code(s): I87.2 - Venous insufficiency (chronic) (peripheral) Plan: Patient is advised that his recurrent lower extremity swelling is likely due to stasis edema brought about in part by his varicose veins Have advised him to try to keep his left leg elevated as often as he can throughout the day to help with his leg swelling Will send him for some additional labs for further evaluation Advised that he can also try some compression stockings to see if they will help keep his swelling down but ultimately, he may need to see vascular surgery if his swelling persists or gets worse (9) History of substance abuse: Code(s): F19.11 - Other psychoactive substance abuse, in remission Plan: (+) Hx of intranasal heroin; denies any Hx of IVDU Continue Suboxone 8-2 mg 2 films SL QD Follow up with the Suboxone clinic as scheduled (10) Overweight (BMI 25.0-29.9): Code(s): E66.3 - Overweight Plan: Reinforced diet/exercise as tolerated/lose weight Plan Follow up in 6 months Orders: Orders Complete Blood Count Auto Diff Today D64.9 - Anemia, unspecified, Z00.00 - Encounter for general adult medical examination without abnormal findings Lipid Panel Today E78.00 - Pure hypercholesterolemia, unspecified, Z00.00 - Encounter for general adult medical examination without abnormal findings Hemoglobin A1c Today R73.01 - Impaired fasting glucose, Z00.00 - Encounter for general adult medical examination without abnormal findings TSH reflex Free T4 Today E78.00 - Pure hypercholesterolemia, unspecified, Z00.00 - Encounter for general adult medical examination without abnormal findi ngs B Type Natriuretic Peptide Today I50.9 - Heart failure, unspecified, I87.2 - Venous insufficiency (chronic) (peripheral) D Dimer High Sensitivity Today I87.2 - Venous insufficiency (chronic) (peripheral) Comprehensive [place]. Panel Fast Today E78.00 - Pure hypercholesterolemia, unspecified, Z00.00 - Encounter for general adult medical examination without abnormal findings UA CC w/rflx Micro + Cult Today R30.0 - Dysuria, Z00.00 - Encounter for general adult medical examination without abnormal findings Vitamin D 25-OH Total Today E55.9 - Vitamin D deficiency, unspecified, Z00.00 - Encounter for general adult medical examination without abnormal findings Erythrocyte Sedimentation Rate Today I87.2 - Venous insufficiency (chronic) (peripheral), M79.7 - Fibromyalgia C Reactive Protein Today I87.2 - Venous insufficiency (chronic) (peripheral) Coding Level of Care Code Est Pt Prev Care 18-39y(60000) Diagnoses Annual physical exam Z00.00 Acute nonintractable headache, unspecified headache type R51.9 Headache type: unspecified Headache chronicity pattern: acute headache Intractability: not intractable PFO with atrial septal aneurysm Q21.1 Cerebrovascular accident (CVA), unspecified mechanism I63.9 CVA mechanism: unspecified Pure hypercholesterolemia E78.00 Nonintractable epilepsy without status epilepticus, unspecified epilepsy type G40.909 Epilepsy type: unspecified Intractability: not intractable Status epilepticus: without status epilepticus Wyatt's esophagus with esophagitis K22.70; K20.90 Edema of left lower extremity due to peripheral venous insufficiency I87.2 History of substance abuse F19.11 Overweight (BMI 25.0-29.9) E66.3
== END 2023-07-09 13:25 | disposition home or self-care (01) ==
PROVIDERS: PCP Internal Medicine; Visit Provider Internal Medicine
DX: Z00.00 Encounter for general adult medical examination without abnormal findings (principal); I63.9 Cerebral infarction, unspecified; G40.909 Epilepsy, unspecified, not intractable, without status epilepticus; F19.11 Other psychoactive substance abuse, in remission; R51.9 Headache, unspecified; Q21.10 Atrial septal defect, unspecified; E78.00 Pure hypercholesterolemia, unspecified; K22.70 Barrett's esophagus without dysplasia; K20.90 Esophagitis, unspecified without bleeding; I87.2 Venous insufficiency (chronic) (peripheral); E66.3 Overweight
CPT/HCPCS: 99395

== ENCOUNTER 2023-07-25 14:49 | Outpatient (REF) | payer OTHER, SELFPAY ==
[2023-07-25 15:26] LABS: MANUAL DIFF FLAG NO
[2023-07-25 16:16] LABS: Basophils Absolute Auto 0.1 X10*3/uL (0.0-0.2); Basophils Percent Auto 1.3 % (0-2); Eosinophils Absolute Auto 0.2 X10*3/uL (0.0-0.4); Eosinophils Percent Auto 4.8 % (0-4); Hematocrit 42.5 % (42.0-52.0); Hemoglobin 13.4 g/dl (14.0-18.0); Imm Gran Abs Auto 0.01 X10*3/uL (0.00-0.03); Imm Gran Pct Auto 0.2 % (0.0-0.4); Lymphocytes Absolute Auto 1.8 X10*3/uL (1.2-4.9); Lymphocytes Percent Auto 38.5 % (20-40); Mean Corpuscular HGB Conc 31.5 g/dl (31.0-36.0); Mean Corpuscular Hemoglobin 27.3 pg (27.0-33.0); Mean Corpuscular Volume 86.7 fL (80.0-98.0); Mean Platelet Volume 9.9 fL (9.4-12.4); Monocytes Absolute Auto 0.4 X10*3/uL (0.1-1.2); Monocytes Percent Auto 8.8 % (2-11); Neutrophils Absolute Auto 2.2 x10*3/uL (2.0-8.3); Neutrophils Percent Auto 46.4 % (45-73); Platelet Count 273 X10*3/uL (160-400); White Blood Count 4.8 X10*3/uL (4.8-10.8)
[2023-07-25 16:23] LABS: Estimated Average Glucose 111 mg/dL; Hemoglobin A1c % 5.5 % (<6.0)
[2023-07-25 16:30] LABS: D Dimer High Sensitivity 381 NG/ML
[2023-07-25 16:46] LABS: B Type Natriuretic Peptide 48 pg/mL (<100)
[2023-07-25 16:48] LABS: Alanine Aminotransferase 10 U/L (0-40); Albumin Level 4.1 g/dL (3.5-5.0); Alkaline Phosphatase 58 U/L (39-117); Anion Gap 10 (12-20); Aspartate Amino Transferase 17 U/L (5-37); Bilirubin Total 0.5 mg/dL (0.0-1.0); Blood Urea Nitrogen 11 mg/dL (9-16); C Reactive Protein 0.49 mg/dL (< or = 0.50); Calcium 9.2 mg/dL (8.4-10.2); Carbon Dioxide 29 mmol/L (22-29); Chloride 107 mmol/L (96-108); Cholesterol 196 mg/dL (<200); Estimated Glomerular Filt Rate > 60; Glucose Fasting 89 mg/dL (60-99); HDL Cholesterol 43 mg/dL (>40); LDL Cholesterol Calculated 140 mg/dL (<100); Potassium 4.3 mmol/L (3.3-5.1); Sodium 142 mmol/L (135-145); Total Protein 6.8 g/dL (6.5-8.0); Triglycerides 65 mg/dL (<150)
[2023-07-25 17:01] LABS: Appearance Urine Clear; Color Urine Yellow; Glucose Urine UA Negative (Negative); Leukocyte Esterase Urine Negative (Negative); Nitrite Urine Negative (Negative); Specific Gravity - Urine 1.015 (1.005-1.025); Urine Blood Negative (Negative); Urine Ketones Negative (Negative); Urine Protein Negative (Neg-Trace)
[2023-07-25 17:02] LABS: Erythrocyte Sedimentation Rate 2 MM/HR (0-15)
[2023-07-25 17:03] LABS: TSH reflex Free T4 1.06 uIU/mL (0.32-4.0); Vitamin D 25-OH Total 26.8 ng/mL (>30)
== END 2023-07-25 14:50 | disposition home or self-care (01) ==
LOC: HO.LAB 14:49
PROVIDERS: PCP Internal Medicine; Visit Provider Internal Medicine
DX: Z00.00 Encounter for general adult medical examination without abnormal findings (principal); R73.01 Impaired fasting glucose; D64.9 Anemia, unspecified; E78.00 Pure hypercholesterolemia, unspecified; I50.9 Heart failure, unspecified; I87.2 Venous insufficiency (chronic) (peripheral); R30.0 Dysuria; E55.9 Vitamin D deficiency, unspecified; M79.7 Fibromyalgia
CPT/HCPCS: 36415; 80053; 80061; 81003; 82306; 83036; 83880; 84443; 85025; 85379; 85652; 86140

== ENCOUNTER 2023-07-26 15:14 | Outpatient (REF) | payer OTHER, SELFPAY ==
--- NOTE | ~2023-07-26 | US_ITS ---
EXAMINATION: US VENOUS ULTRASOUND WITH DOPPLER LOWER EXTREMITY, LEFT CLINICAL INFORMATION: Left leg edema evaluate for blood clot COMPARISON: None available. TECHNIQUE: Ultrasound of the deep veins is performed from the hip to the calf with compression sonography and color and pulse Doppler assessment. Spectral analysis with color-flow imaging is performed. FINDINGS: There is normal venous compression and respiratory variation and augmented flow. The visualized common femoral vein, superficial femoral vein, profunda femoral vein, popliteal vein, and the trifurcation region shows no evidence of deep venous thrombosis. There is no significant popliteal fossa cyst. The greater saphenous vein is patent in its visualized course. In the left groin is a lymph node measuring 1.0 x 3.1 cm. If the patient's symptoms persist, followup ultrasound in 5 days 7 days might be of value to exclude proximal propagation from a non-visualized calf vein. US/US venous duplex LE IMPRESSION: 1. No DVT demonstrated in the left lower extremity. 2. Left groin lymph node measuring 1.0 x 3.1 cm.
== END 2023-07-26 15:15 | disposition home or self-care (01) ==
LOC: HO.HMGCX 15:14
PROVIDERS: PCP Internal Medicine; Visit Provider Internal Medicine
DX: I87.2 Venous insufficiency (chronic) (peripheral) (principal); R60.0 Localized edema
CPT/HCPCS: 93971

== ENCOUNTER 2023-10-15 10:07 | Day surgery (SDC) | payer OTHER, SELFPAY ==
--- NOTE | 2023-10-14 10:25 | P.CONAN_ITS ---
Documented by User: Yanely Reilly NP 10/14/23 12:33 HPI - Anesthesia Eval Consult details Narrative: 33yo M for Upper Endoscopy Suboxone daily PFO with hx CVA, cardiology rec'd closure in 2020, no follow up Seizures with med noncompliance per [facility] 02/2023 ER visit Seen by PCP 06/2023, stable but instructed to f/u with cardiology and neurology Unable to reach patient by phone for update regarding specialty follow ups. Case reviewed with Dr Jamilah TRIPLETT Active Problems Active Problems: All Active Problems Edema of left lower extremity due to peripheral venous insufficiency (Acute) Impaired fasting glucose (Acute) Respiratory tract infection (Acute) Cyst of skin and subcutaneous tissue (Acute) Preoperative cardiovascular examination (Acute) Headache (Acute) Rash and other nonspecific skin eruption (Acute) Annual physical exam (Acute) Neck pain (Acute) Wyatt's esophagus with esophagitis (Acute) CVA (cerebral vascular accident) (Acute) Overweight (BMI 25.0-29.9) (Acute) History of substance abuse (Acute) Epilepsy (Acute) PFO with atrial septal aneurysm (Acute) Cerebrovascular accident (CVA) due to embolism of right middle cerebral artery (Acute) GERD (gastroesophageal reflux disease) (Acute) Duodenitis (Acute) Pure hypercholesterolemia (Acute) Nausea (Acute) Epigastric discomfort (Acute) Past Medical History Medical History Overweight (BMI 25.0-29.9) History of substance abuse Epilepsy PFO with atrial septal aneurysm Cerebrovascular accident (CVA) due to embolism of right middle cerebral artery Seizure CVA (cerebral vascular accident) Drug abuse PFO (patent foramen ovale) GERD (gastroesophageal reflux disease) Duodenitis Pure hypercholesterolemia Family History Family History Father No problems noted. Mother No problems noted. Family history of problems with anesthesia: No Surgical History Surgical History History of esophagogastroduodenoscopy (EGD) History of surgery History of Problems with Anesthesia: No Social History Social History Household Members: Spouse and Children Housing: Apartment Are you a primary wound care coordinator to a significant other at home: No Do you presently have visiting nurse or other home services: No Alcohol intake: never Patient Tobacco Use Status: Never used Tobacco e-Cigarette/Vaping Use: Never Used Second Hand Smoke Exposure: No Use of substances other than those prescribed or required for medical reasons: No Are you DNR?: No Advance Directives: No Advance Directives Information Provided: Yes service: No Current occupational status: employed 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 Cognitive needs: No Hearing needs: No Vision needs: No Meds Allergies Allergy/AdvReac Type Severity Reaction Status Date / Time No Known Allergies Allergy Verified 07/09/23 13:14 [No Known Allergies*] Home Medications ?Medication ?Instructions ?Recorded ?Confirmed ?Last Taken ?Type buprenorphine 8 mg-naloxone 2 mg 2 tab sublingual DAILY 05/10/20 07/09/23 10/14/23 History sublingual tablet Exam Pertinent Lab Results Pertinent Lab Results: Laboratory Tests 07/25/23 15:25 WBC 4.8 Hgb 13.4 L Hct 42.5 Plt Count 273 Sodium 142 Potassium 4.3 Chloride 107 Carbon Dioxide 29 BUN 11 Creatinine 1.22 Assessment and Plan Assessment Anesthesia Assessment: Chart Reviewed Final Anesthetic Review Family History of Problems with Anesthesia: No History of Problems with Anesthesia: No Documented by User: Kwan Gil MD 10/15/23 12:22 [facility] Past Medical History Medical History Overweight (BMI 25.0-29.9) History of substance abuse Epilepsy PFO with atrial septal aneurysm Cerebrovascular accident (CVA) due to embolism of right middle cerebral artery Seizure CVA (cerebral vascular accident) Drug abuse PFO (patent foramen ovale) GERD (gastroesophageal reflux disease) Duodenitis Pure hypercholesterolemia Family History Family History Father No problems noted. Mother No problems noted. Surgical History Surgical History History of esophagogastroduodenoscopy (EGD) History of surgery Social History Social History Household Members: Spouse and Children Housing: Apartment Are you a primary wound care coordinator to a significant other at home: No Do you presently have visiting nurse or other home services: No Alcohol intake: never Patient Tobacco Use Status: Never used Tobacco e-Cigarette/Vaping Use: Never Used Second Hand Smoke Exposure: No Use of substances other than those prescribed or required for medical reasons: No Are you DNR?: No Advance Directives: No Advance Directives Information Provided: Yes service: No Current occupational status: employed 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 Cognitive needs: No Hearing needs: No Vision needs: No Meds Allergies Allergy/AdvReac Type Severity Reaction Status Date / Time No Known Allergies Allergy Verified 07/09/23 13:14 [No Known Allergies*] Home Medications ?Medication ?Instructions ?Recorded ?Confirmed ?Last Taken ?Type buprenorphine 8 mg-naloxone 2 mg 2 tab sublingual DAILY 05/10/20 07/09/23 10/14/23 History sublingual tablet Exam Airway Mallampati Class: III TM Dist: >3cm Neck ROM: Full Loose/Missing/Broken Teeth: Yes Assessment and Plan Assessment Anesthesia Assessment: Anesthesia Plan Discussed Final Anesthetic Review NPO: Yes ASA Class: III Final Preanesthetic Review: No Changes in Pt Med Stat, Meds/Allgs Chart Reviewed, Consent Obtained/Reviewed and Anes Risks/Benef Reviewed Patient Risk: Intermediate Procedure Risk: Low Anesthetic Plan Anesthetic Plan: MAC: Disposition: Standard PACU
[2023-10-15 10:23] VITALS: BMI 31.4
[2023-10-15 10:30] VITALS: BP 138/86; PULSE 71; RESP 16; TEMP 36.7; O2SAT 94
[2023-10-15] MEDS: Lactated Ringers 1,000 ML 100 ML IVCONT (10:52)
--- NOTE | 2023-10-15 11:04 | P.OP_ITS ---
Operative Note Operative Note Date of Service: 10/15/23 Narrative: Procedure Description: EGD Indication: Barretts esophagus Anesthesia: MAC FLEXIBLE TRANSORAL UPPER GASTROINTESTINAL ENDOSCOPY UPPER ENDOSCOPY Consent: Indications for the procedure and potential complications of bleeding, perforation, reaction to medications and missed diagnosis were discussed with the patient and informed consent was obtained. Instrument: Olympus GIF H 190 J mid size upper endoscope Monitoring: Vital signs and clinical assessment, continuous EKG monitoring, Pulse oximetry, Carbon Dioxide monitoring and blood pressure monitoring were done throughout the procedure. Procedure: The patient was placed in the left lateral decubitis position and pre-procedure medications were administered and a bite block was placed. The endoscope was inserted into the mouth and advanced under direct vision to the third part of duodenum. A careful inspection was made as the upper endoscope was withdrawn including a retroflexed examination of the proximal stomach; Findings and interventions are described below. Findings: Larynx:normal Esophagus: GE junction at 40? cm, diaphragm hiatus at 42 cm, consistent with 2 cm sliding hiatal hernia, there was a 14 cm long segment of Barretts esophagus [id number] by [place] classification, Brushings taken for WATS 3D, also biopsies per [place] protocol. no focal nodularity seen Stomach: Patchy gastric erythema. Grade 3 flap valve on retroflexed examination of the cardia with lax LES. There was reduced gastric movement. Duodenum: Normal bulb and descending duodenum, Intervention: Biopsies as noted above and brushings Impression/Findings: long segment barretts hiatal hernia Impression/Findings: long segment barretts PLAN: await results continue with PPI if path neg for dysplasia then repeat EGD in 1-2 yrs --also sent samples for tissue cypher testing
--- NOTE | 2023-10-15 11:05 | MHC.SHP ---
Pre-Procedural Eval Section A - 24 Hr Update-Section A only Date of Service: 10/15/23 Section B - Complete if H&P > 30 days Chief Complaint: Wyatt's esophagus without dysplasia Relevant Family History (Specify if Yes): No Relevant Social History: None Present Medications: see Short Stay Collaborative assessment Medical History: Significant History (Overweight (BMI 25.0-29.9) History of substance abuse Epilepsy PFO with atrial septal aneurysm Cerebrovascular accident (CVA) due to embolism of right middle cerebral artery Seizure CVA (cerebral vascular accident) Drug abuse PFO (patent foramen ovale) GERD (gastroesophageal reflux disease) Duodenit) History of Previous Operations: Relevant previous surgery/procedure and date(s) (History of esophagogastroduodenoscopy (EGD) History of surgery) Allergies: Allergies Allergy/AdvReac Type Severity Reaction Status Date / Time No Known Allergies Allergy Verified 07/09/23 13:14 [No Known Allergies*] Review of Systems Sugical H&P ROS: Negative: Constitution, Cardiovascular, Respiratory, Neurological, Psychiatric, Hem-Onc, Allergic/Immunologic, Gastrointestinal, Genitourinary, Musculoskeletal, Integumentary, Endocrine and Eyes/Ears/Nose/Throat Exam Surgical H&P Exam: Normal: HEENT, Normal: Heart, Normal: Lungs, Normal: Extremities, Normal: Abdomen, Normal: Skin and Normal: Neurological Plan Diagnosis/Plan: Unchanged I have reviewed the history and physical and performed a pertinent physical examination on my patient. No changes have occurred unless specified. Time Spent With Patient Time: Total time managing care of this patient today ____ minutes.
[2023-10-15 12:05] VITALS: BP 137/84; PULSE 73; RESP 20; TEMP 36.1; O2SAT 95
[2023-10-15 12:20] VITALS: BP 126/82; PULSE 77; RESP 20; TEMP 36.1; O2SAT 94
--- OUTSIDE RECORDS SUMMARY | 2023-10-16 08:09 | XMS_ITS | Continuity of Care Document ---
Author Organization [facility] Address [address] [place] [id number]- Care Team Providers Care Memorial Adviser Name Role Phone Raghavendra Villarreal MD Primary Care Physician [phone] [place] [facility] [place] - 12/22/21 [facility] [address] [place] [id number]- Attending Physician: Shimon Macdonald MD Admitting Physician: Shimon Macdonald MD Referring Physician: Raghavendra Villarreal MD Allergies, Adverse Reactions, Alerts No Known Allergies Immunizations Given and Recorded Vaccine Date Status Refusal Reason tetanus/diphtheria/pertussis, acel(Tdap) 05/30/11 Given Not Given Vaccine Date Status Refusal Reason pneumococcal 23-valent vaccine 07/14/16 Not Given Permanently Refused Medications aspirin 81 mg oral delayed release tablet 81 mg, By Mouth, Daily, # 30 tablet, Refills 0, Tot. Refills 0, Maintenance, 04/10/19 10:43:00 EST,Route to Pharmacy Electronically, [facility], 187, cm, 04/09/19 16:49:00 EST, Height,85.1, kg, 04/09/19 23:03:00 EST, Dry Weight Start Date: 04/10/19 Status: Ordered atorvastatin 40 mg oral tablet 1 tablet = 40 mg, By Mouth, Daily at bedtime, # 30 tablet, 0 Refills, Maintenance, 04/10/19 10:43:00 EST, Tablet, [facility], 187, cm, 04/09/19 16:49:00 EST, Height, 85.1, kg, 04/09/19 23:03:00 EST, Dry Weight Start Date: 04/10/19 Status: Ordered buprenorphine-naloxone 8 mg-2 mg sublingual film 2 films, 0 Refills, Maintenance, 04/10/19 10:44:00 EST, Film Start Date: 04/10/19 Status: Ordered cloNIDine 0.1 mg oral tablet 0.1 mg, 1, tablet, By Mouth, Every 8 hours, # 90 tablet, Refills 0, Tot. Refills 0, Maintenance, 04/10/19 10:44:00 EST, Route to Pharmacy Electronically, [facility], 187, cm, 04/09/19 16:49:00 EST, Height, 85.1, kg, 04/09/19 23:03:00 EST... Start Date: 04/10/19 Status: Ordered Compression Stockings See Instructions, # 1 each, Refills 3, Tot. Refills 3, Maintenance, surgical, calf length 20-30 mm Hg, to be worn during waking hours, dispense 1 pair, refills x 3, 07/19/21 8:50:00 EDT, Supply Start Date: 07/19/21 Status: Ordered omeprazole 40 mg oral enteric coated capsule 1 capsule = 40 mg, By Mouth, 2 times a day, # 60 capsule, 2 Refills, Maintenance, 12/25/18 12:04:50EDT, CR Capsule Start Date: 12/25/18 Status: Ordered Problem List Condition Confirmation Course Effective Dates Status Health St atus Informant Stroke Confirmed Active Concussion w/o coma Confirmed Active IVDU (intravenous drug user) Confirmed Active Social History Social History Type Response Smoking Status Never smoker entered on: 06/24/16 Sex Patient Care team information Personnel Name: Phil OTTO, Raghavendra Michele Address: Address: [address] [place] [address] [address] [place] [address]
--- OUTSIDE RECORDS SUMMARY | 2023-10-16 08:09 | XMS_ITS | Continuity of Care Document ---
Author Organization [facility] Address [address] [facility], [address] Floor, [address] [place] [id number]- Care Team Providers Care Vault Keeper Name Role Phone Raghavendra Villarreal MD Primary Care Physician Encounter [facility] [place](s): 02/27/23 - 03/29/23 [facility] [address] [facility], [address]rd Floor, [address] [place] [id number] Attending Physician: Joe Thapa Admitting Physician: Admtr, [id number] Referring Physician: Admtr, Ar8 Allergies, Adverse Reactions, Alerts No Known Allergies Immunizations Given and Recorded Vaccine Date Status Refusal Reason tetanus/diphtheria/pertussis, acel(Tdap) 05/30/11 Given Medications aspirin 81 mg oral delayed release tablet 81 mg, By Mouth, Daily, Refills 0, Maintenance, 02/26/23 20:38:00 EST, Partial fill upon patient request if the prescription is for a schedule II opioid drug. Start Date: 02/26/23 Status: Ordered buprenorphine-naloxone 8 mg-2 mg sublingual film 1 - 1.5 film, Sublingual, 2 times a day, 0 Refills, Maintenance, 04/10/19 10:44:00 EST, Film Start Date: 04/10/19 Status: Ordered Keppra 1000 mg oral tablet 1 tablet = 1,000 mg, By Mouth, 2 times a day, # 60 tablet, 0 Refills, Maintenance, 02/26/23 20:39:00 EST, Tablet, [facility] #[id number], Partial fill upon patient request if the prescription is for a schedule II opioid drug., 187, cm, 07/19/21 8:20:00 ED... Start Date: 02/26/23 Status: Ordered pantoprazole 40 mg oral delayed release tablet 1 tablet = 40 mg, By Mouth, Daily, # 30 tablet, 0 Refills, Maintenance, 02/26/23 12:30:00 EST, EC Tablet Start Date: 02/26/23 Status: Ordered Problem List Condition Confirmation Course Effective Dates Status Health St atus Informant Concussion w/o coma Confirmed Active GERD (gastroesophageal reflux disease) Confirmed Active History of seizure disorder Confirmed Active History of CVA (cerebrovascular accident) Confirmed Active Heroin abuse Confirmed Active PFO (patent foramen ovale) Confirmed Active Social History Social History Type Response Smoking Status Never smoker entered on: 06/24/16 Sex Patient Care team information Care Team Personnel Name: Raghavendra Villarreal MD Position: Reference Physician Member Role: PCP Address: Address: [address] [place] [address] [address] [place] [address]- Name: Bala Raymundo RN Position: [facility] ED RN W/OE and Tasks Member Role: Primary Care Nurse Name: Lisa Fisher RN Position: [facility] SN RN Member Role: Primary Care Nurse Name: Alexsander Bridges RN Position: S Outreach Member Role: Primary Care Nurse Name: Liberty Spears RN Position: [facility] RN Supv Member Role: Primary Care Nurse Name: Philomena Enamorado RN Position: [facility] RN Supv Member Role: Primary Care Nurse Care Team Related Persons Name: BHAKTI TERRY Address: home [address] [place] [address] Name: CONCEPCION TERRY Address: home [address] [place] [address]
--- OUTSIDE RECORDS SUMMARY | 2023-10-16 08:10 | XMS_ITS | Continuity of Care Document ---
Author Organization [facility] ter Address [address] [place] [id number]- Care Team Providers Care Chisel Trimmer Name Role Phone Raghavendra Villarreal MD Primary Care Physician Encounter [facility] Date(s): 02/26/23 - 02/26/[address] [address]- Discharge Disposition: A-D/C AMA Attending Physician: Le OTTO, Jovani Eugene Admitting Physician: Estelita Murcia MD, Vivek Harris Referring Physician: Not on Staff, Referring MD Allergies, Adverse Reactions, Alerts No Known [...] 0 Refills, Maintenance, 02/26/23 20:39:00 EST, Tablet, [facility]/pharmacy #[id number], Partial fill upon patient request if [...] Active PFO (patent foramen ovale) Confirmed Active Results Radiology Reports * Exam Date Time Procedure Performing Provider Status 02/26/23 8:51 AM Chest 2 Views Frontal and Lat Nick Cabral (Verified) Notes: (Chest 2 Views Frontal and Lat) Reason For Exam: Shortness of Breath RESULT: Chest 2 Views Frontal and Lat Examination: Chest performed on 02/26/2023. History: Shortness of breath. Seizure. Findings: Frontal and lateral views of the chest are compared to a prior study dated 04/05/2019. The cardiac and mediastinal silhouettes are within normal limits. The lungs are clear. The osseous and soft tissue structures are unremarkable. Impression: There is no acute cardiopulmonary disease. WSN: [id number] Ordering Physician: Jenny Laurent Dictated By: Roseanne Mason MD Dictated Date/Time: 02/26/23 8:53 am Reviewed By: Roseanne Mason MD Signed By: Roseanne Mason MD Signed Date/Time: 02/26/23 8:53 am Transcribed By: MARYA Transcribed Date/Time: 02/26/23 8:53 am * Exam Date Time Procedure Performing Provider Status 02/26/23 8:[address] Angio Neck Fang Cross (Verified) Notes: (CT Angio Neck) Reason For Exam: Aneurysm, neck vessel(s);Other: RESULT: CT Angio Neck CT Angio Head, CT Angio Neck Hx of Present Illness: hx of seizures, stroke; Reason: Other:; Neuro deficit, acute, stroke suspected; Clinical Question(s): Other:; Hematoma Aneurysm / Other: TECHNIQUE: CT angiogram of the head and neck was performed after bolus administration of intravenous contrast. 100 mL of Omnipaque 300 was administered intravenously. Coronal and sagittal MIP reformatted images were obtained. Additional 3-D images were created on a separate workstation under concurrent supervision by the attending radiologist. All stenoses are measured using NASCET criteria. Weight-based protocol using automatic tube modulation was used to optimize exposure parameters. RADIATION DOSE PARAMETERS: COMPARISON: Noncontrast CT head performed concurrently. CTA of the head and neck 04/05/2019 FINDINGS: CTA OF THE NECK: Arch: There is a three vessel aortic arch. The origins of the supra aortic vessels are patent. Right carotid system: The common carotid and cervical internal carotid arteries are patent. No stenosis (0%) by NASCET criteria. Left carotid system: The common carotid and cervical internal carotid arteries are patent. No stenosis (0%) by NASCET criteria. There is a right-dominant vertebral artery system. Right vertebral: Patent. Left vertebral: Patent. Other: Soft tissues and bones: No evidence of lymphadenopathy or mass. The thyroid is unremarkable. Visualized lungs are blurred by motion artifact, without significant superimposed airspace opacity. Marginal osteophytes of the cervical spine are most pronounced at C5-C6. Probable moderate right C5-C6 foraminal stenosis. CTA OF THE HEAD: Anterior circulation: The intracranial internal carotid arteries are patent. Posterior communicating arteries are present bilaterally. The ICA termini are maintained. The A1 and A2 segments of the anterior cerebral arteries are patent. The M1 and M2 segments of the left middle cerebral artery are patent. The M1 segment of the right middle cerebral artery is now patent. The right M2 MCA branches are patent. Posterior circulation: Bilateral intracranial vertebral arteries, the basilar artery, and bilateralsuperior cerebellar and posterior cerebral artery branches are patent. Near type right posterior cerebral artery. Veins: Major dural venous sinuses are patent. Other: Soft tissues and bones: Multiple chronic right MCA vascular territory infarcts are noted. Mild compensatory dilatation of the right lateral ventricle. Asymmetrical prominence of the extra-axial CSF space overlying the anterior right frontal lobe is similar. Orbits are unremarkable. Maxillary sinus retention cysts. IMPRESSION: 1. No new acute intracranial large vessel occlusion. 2. The right middle cerebral artery is now patent. 3. No new hemodynamically-significant stenosis of the extracranial internal carotid and vertebral arteries. A preliminary report was issued to the [facility] via [facility] 02/26/2023 at 8:47 AM. WSN: [id number] Ordering Physician: Marisa Elias Dictated By: Bobby Zheng MD Dictated Date/Time: 02/26/23 9:09 am Reviewed By: Bobby Zheng MD Signed By: Bobby Zheng MD Signed Date/Time: 02/26/23 9:09 am Transcribed By: MARYA Transcribed Date/Time: 02/26/23 8:47 am * Exam Date Time Procedure Performing Provider Status 02/26/23 8:[address] Angio Head Fang Cross; Kiersten h (Verified) Notes: (CT Angio Head) Reason For Exam: Neuro deficit, acute, stroke suspected;Other: RESULT: CT Angio Head CT Angio Head, CT Angio Neck Hx of Present Illness: hx of seizures, stroke; Reason: Other:; Neuro deficit, acute, stroke suspected; Clinical Question(s): Other:; Hematoma Aneurysm / Other: TECHNIQUE: CT angiogram of the head and neck was performed after bolus administration of intravenous contrast. 100 mL of Omnipaque 300 was administered intravenously. Coronal and sagittal MIP reformatted images were obtained. Additional 3-D images were created on a separate workstation under concurrent supervision by the attending radiologist. All stenoses are measured using NASCET criteria. Weight-based protocol using automatic tube modulation was used to optimize exposure parameters. RADIATION DOSE PARAMETERS: COMPARISON: Noncontrast CT head performed concurrently. CTA of the head and neck 04/05/2019 FINDINGS: CTA OF THE NECK: Arch: There is a three vessel aortic arch. The origins of the supra aortic vessels are patent. Right carotid system: The common carotid and cervical internal carotid arteries are patent. No stenosis (0%) by NASCET criteria. Left carotid system: The common carotid and cervical internal carotid arteries are patent. No stenosis (0%) by NASCET criteria. There is a right-dominant vertebral artery system. Right vertebral: Patent. Left vertebral: Patent. Other: Soft tissues and bones: No evidence of lymphadenopathy or mass. The thyroid is unremarkable. Visualized lungs are blurred by motion artifact, without significant superimposed airspace opacity. Marginal osteophytes of the cervical spine are most pronounced at C5-C6. Probable moderate right C5-C6 foraminal stenosis. CTA OF THE HEAD: Anterior circulation: The intracranial internal carotid arteries are patent. Posterior communicating arteries are present bilaterally. The ICA termini are maintained. The A1 and A2 segments of the anterior cerebral arteries are patent. The M1 and M2 segments of the left middle cerebral artery are patent. The M1 segment of the right middle cerebral artery is now patent. The right M2 MCA branches are patent. Posterior circulation: Bilateral intracranial vertebral arteries, the basilar artery, and bilateralsuperior cerebellar and posterior cerebral artery branches are patent. Near type right posterior cerebral artery. Veins: Major dural venous sinuses are patent. Other: Soft tissues and bones: Multiple chronic right MCA vascular territory infarcts are noted. Mild compensatory dilatation of the right lateral ventricle. Asymmetrical prominence of the extra-axial CSF space overlying the anterior right frontal lobe is similar. Orbits are unremarkable. Maxillary sinus retention cysts. IMPRESSION: 1. No new acute intracranial large vessel occlusion. 2. The right middle cerebral artery is now patent. 3. No new hemodynamically-significant stenosis of the extracranial internal carotid and vertebral arteries. A preliminary report was issued to the [facility] via [facility] 02/26/2023 at 8:47 AM. WSN: [id number] Ordering Physician: Marisa Elias Dictated By: Bobby Zheng MD Dictated Date/Time: 02/26/23 9:09 am Reviewed By: Bobby Zheng MD Signed By: Bobby Zheng MD Signed Date/Time: 02/26/23 9:09 am Transcribed By: MARYA Transcribed Date/Time: 02/26/23 8:47 am * Exam Date Time Procedure Performing Provider Status 02/26/23 8:[address] Head/Brain W/O Contrast Paula Cross; Auth (Verified) Notes: (CT Head/Brain W/O Contrast) Reason For Exam: Brain mass or lesion;Other: RESULT: CT Head/Brain W/O Contrast CT Head/Brain W/O Contrast INDICATION: Seizure. TECHNIQUE: Noncontrast head CT using axial technique and reconstructed in axial and coronal planes.Iterative reconstruction techniques are used to optimize dose and image quality. COMPARISON: 04/05/2019. Correlation made with subsequently performed CTA, MRI 04/05/2019. FINDINGS: Pre K Lead Teacher view findings, lines and tubes: None. BRAIN AND EXTRA-AXIAL SPACES: No acute abnormalities. Multiple small chronic right MCA infarcts some of which have evolved in the interval. Mild ex vacuo dilatation of the right lateral ventricle occipital horn. Sulci and basilar cisterns are normal. CALVARIUM, SKULL BASE, AND SOFT TISSUES: No fractures or suspicious bony lesions. Mild mucosal thickening of the paranasal sinuses. Polyp/mucous retention cyst posteriorly in the left ethmoid sinus is slightly more prominent on today's exam.. Mastoid air cells are clear. Visualized orbits and globes are intact. The extracranial soft tissues are unremarkable. IMPRESSION: No acute intracranial pathology. I have personally reviewed the images and I agree with this report. WSN: [id number] Ordering Physician: Jenny Laurent Dictated By: Dany Gama MD Dictated Date/Time: 02/26/23 9:14 am Reviewed By: Olvin Hensley MD Signed By: Olvin Hensley MD Signed Date/Time: 02/26/23 9:19 am Transcribed By: MARYA Transcribed Date/Time: 02/26/23 8:49 am Vital Signs Most recent to oldest [Reference Range]: 1 2 3 Oxygen Saturation [94-100 %] 99 % (02/26/23 8:47 PM) 96 % (02/26/23 7:15 PM) 93 % *L* (02/26/23 12:15 PM) Pulse Rate [55-90 bpm] 81 bpm (02/26/23 8:47 PM) 77 bpm (02/26/23 7:15 PM) 69 bpm (02/26/23 12:15 PM) Blood Pressure [90-138/55-84 mm Hg] 131/66mm Hg (02/26/23 8:47 PM) 119/79mm Hg (02/26/23 7:15 PM) 124/73mm Hg (02/26/23 12:15 PM) Respiratory Rate [16-30 br/min] 16 br/min (02/26/23 8:47 PM) 15 br/min *L* (02/26/23 7:15 PM) 24 br/min (02/26/23 12:15 PM) Temperature [96.8-100.4 DegF] 98.6 DegF (02/26/23 8:47 PM) 99.5 DegF (02/26/23 7:15 PM) Mode of Delivery (Oxygen) Room air (02/26/23 8:47 PM) Room air (02/26/23 7:15 PM) Room air (02/26/23 12:15 PM) Blood pressure sites Arm, left (02/26/23 8:47 PM) Arm, left (02/26/23 7:15 PM) Arm, right (02/26/23 12:15 PM) Temperature Route Oral (02/26/23 8:47 PM) Oral (1/2/24 7:15 PM) Social History Social History Type Response Smoking Status Never smoker entered on: 06/24/16 Sex History and physical note * Le OTTO, Jovani Eugene: PERFORM Event Display: History and Physical Hospital Authored Date: [id number] Patient: ??JAYDE BOJORQUEZ ? Age:??33 Years?Sex:??Male?:??1990?? Chief Complaint/Reason for Consultation coming from home, n/v/seizures, x1 seizure with EMT lasted 30 seconds History of Present Illness 33-year-old male with history of right MCA stroke??in 2015??(right MCA occlusion, status post tPA),??recurrent right MCA stroke in??March 2019 (recurrent right MCA occlusion,??status post thrombectomy,??positive PFO??on Echo, noncompliant with aspirin??and not on anticoagulation,??noncompliant wi th??follow-up for PFO closure,??reported no residual deficits),??previous seizure disorder??noncompliant with levetiracetam??since 2017,??and??intermittent??heroin abuse (denies IV use)??on Suboxone,??brought in??to the emergency department this morning??for active seizures.?The patient tells methat he recently relapsed??with??nasal heroin use, and has not taken his Suboxone??in a couple months.?? He last used 2 days ago.?? He states this morning just after midnight,??he took Suboxone 09/26??film??under his tongue??as it was his New Year's resolution to get clean again.?? He feels he may have?? precipitated opiate withdrawal ??by starting Suboxone too early,??and began to have nausea and vomiting.?? EMS was called??by his family when he??was noted to have a tonic-clonic seizure.?? He denies any recent fever or other illness.?? No??visual changes??or head trauma.?? No chest pain, shortness of breath, coughing,??abdominal pain, diarrhea, or urinary symptoms.?? EMS reported that the patient had a tonic-clonic seizure en route. ?? In the emergency department, the patient has been afebrile and hemodynamically stable.?? He had another witnessed seizure which lasted approximately 30 seconds and ended abruptly with a minimal postictal phase.?? His neurologic exam was significant for decreased gross motor strength in his left upper and lower extremities.?? He also was noted to have a left facial droop.?? The patient states all of these neurologic findings are new, and he did not have residual deficits from his previous stroke.?The patient was given 3??mg IV lorazepam and 2 g IV levetiracetam, without further ongoing seizure activity at the time of my evaluation.?His main complaint at the time of my evaluation is nausea,??and he is alert and oriented x 3 and following all commands. Review of Systems Other than those positives as noted in the HPI above, the remaining comprehensive 14-point review of systems is negative. Objective ? Vital Signs?? Pulse Rate: 69 bpm (02/26/23 12:15:00) Respiratory Rate: 24 br/min (02/26/23 12:15:00) Systolic Blood Pressure: 124 mm Hg (02/26/23 12:15:00) Diastolic Blood Pressure: 73 mm Hg (02/26/23 12:15:00) Blood pressure sites: Arm, right (02/26/23 12:15:00) Mean Arterial Pressure: 90 mm Hg (02/26/23 12:15:00) Pulse Pressure: 51 mm Hg (02/26/23 12:15:00) Oxygen Saturation:??93 %??Low (02/26/23 12:15:00) Mode of Delivery (Oxygen): Room air (02/26/23 12:15:00) Early Warning Score: 4 (02/26/23 12:15:39) ? Pain Scores 1 - 10 Pain Scale Score: 5 (06:22) ? Physical Exam General Appearance: Alert, appears stated age, answers questions appropriately HEENT: Normocephalic, atraumatic, PERRL, EOMI, no nystagmus,??no scleral icterus, left lower facialdroop, moist mucous membranes, no oropharynx lesions?? Neck: Supple, no JVD, no C-Spine tenderness, no LAD Cardiac: RRR, S1 & S2 present, no m / r / g appreciated Chest: Clear to auscultation bilaterally, no wheezing / ronchi / rales, no tenderness to percussion Abdomen: Soft, nontender, no distention, no rebound or guarding, no masses, no organomegaly, normalbowel sounds in all quadrants Extremities: No clubbing, cyanosis, or edema. ??2+ distal pulses. ??Capillary refill < 3 seconds. ??No calf tenderness or cords Skin: Warm, no rash or open wounds Neuro: ??A & O x 3, CN III-XII intact (other than facial droop), strength 5/5 of right??upper /lower extremities, 4/5 LUE, 4/5 LLE,??gross sensation intact, no focal cerebellar abnl Psych: ??Stable mood, appropriate affect Assessment/Plan Assessment:??33-year-old male with history of right MCA stroke??in 2016??(right MCA occlusion, status post tPA),??recurrent right MCA stroke in??March 2019 (recurrent right MCA occlusion,??status post thrombectomy,??positive PFO??on Echo, noncompliant with aspirin??and not on anticoagulation,??noncompliant with??follow-up for PFO closure,??reported no residual deficits),??previous seizure disorder??noncompliant with levetiracetam??since 2017,??and??intermittent??heroin abuse (denies IV use)??on Suboxone,??brought in??to the emergency department this morning??for active seizures.??He??had a witnessed seizure with??short postictal phase in the emergency room, and has been loaded on IV Keppra??after receiving IV lorazepam.??He is noted to have LUE??and LLE weakness??on neuro exam. Admission requested for recurrent breakthrough seizures. ?? Seizure (R56.9) Left-sided weakness (R53.1):??The patient does not have ongoing seizure activity at this time.??He is mentating normally and answering my questions.??He does have??objective LUE and LLE weakness??on neurologic exam,??and left lower??facial weakness, which he states??have not been chronic??since hisCVA in 2019.??? Adrian's paralysis.?? He is at risk??for recurrent stroke given medication noncompliance??and known PFO.??He could be at risk for seizure in the setting of??CVA and cerebrovascular disease,??versus intermittent heroin abuse??and/or opiate withdrawal.?? Metabolic workup is unremarkableother than elevated lactate level.?? No fever or obvious infectious etiology.?? Head CT negative.??Head/Neck CT Angio without any new occlusive vascular disease. 1. ??Admit to the medical floor, continuous EKG monitoring, neurochecks every 4 hours, seizure precautions 2. ??MRI of the brain to evaluate for acute ischemia 3.?? EEG to evaluate for ongoing epileptiform activity 4.?? Check urinalysis and culture; check urine toxicology 5. ??Check TSH, free T4,??and hemoglobin A1c 6. ??Resume??aspirin 81 mg daily after 324 mg today 7.?? Continue levetiracetam 750 mg orally twice daily pending neurology consultation 8.?Check lipid panel with goal LDL < 70; previously was on atorvastatin but noncompliant 9. ??Permissive hypertension over the first 48 hours (SBP goal:??<200, hold antihypertensives while SBP within goal); plan to gradually lower to long-term goal <120/80 after initial 48 hours 10.?Neurology consultation requested, will follow up after above studies are resulted 11.?The patient has passed a nursing bedside swallow evaluation and will be allowed to have a regular diet ?? Elevated lactic acid level (R79.89):??I suspect this is in the setting of seizure. He is afebrile and hemodynamically stable; no abdominal pain; normal LFT's and renal function. We will monitor??lactate level. ?? Heroin abuse (F11.10):??The patient??expresses interest in?? getting clean again. We will resume Suboxone 09/26 1 film daily (last took consistently??over 2 months ago, at that time was on 1 film in a.m. and 1.5 films in p.m.). Check urine toxicology. Addiction medicine consultation requested. ?? GERD (gastroesophageal reflux disease) (K21.9):??Continue PPI as prescribed. ?? VTE Prophylaxis:??Lovenox 40 mg subcutaneously daily. ?VTE Prophylaxis Assessment:??VTE Prophylaxis Ordered ?? Code Status:??FULL. ?Order Code Status:??Code Status Ordered ?? Discharge Planning:??Anticipate discharge home; 1 to 2 days hospitalization. ?? I spent a total of??87 minutes today reviewing the chart / medical records, evaluating the patient,evaluating and interpreting laboratory and imaging data, formulating and discussing the treatment plan, and documenting the encounter. ? Histories Allergies Allergies ?(Active and Proposed Allergies Only) NKA? (Severity: Unknown severity, Onset: Unknown) ? Past Medical History/Problem List Active Problems??(6) Concussion w/o coma GERD (gastroesophageal reflux disease) Heroin abuse History of CVA (cerebrovascular accident) History of seizure disorder PFO (patent foramen ovale) ? Past Surgical History Esophagogastroduodenoscopy with Bi-CAP: 12/24/18 ? Social History Alcohol Details:??Use: Past. ??Frequency: 1-2 times per month. 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 Substance Abuse Details:??Use: Current. ??Type:??Nasal Heroin. ??Previous cocaine. Tobacco Details:??Never smoker ? Family History Mat. Grandfather: CAD - Coronary artery disease; Stroke ? Medications Home Medications Aspirin (aspirin 81 mg oral delayed release tablet)?81?Milligram?By Mouth?Daily Atorvastatin (atorvastatin 40 mg oral tablet)?1?tab(s)?40?Milligram?By Mouth?Daily at bedtime Buprenorphine-Naloxone (buprenorphine-naloxone 8 mg-2 mg sublingual film)?2 films Durable Medical Equipment (Compression Stockings)?See Instructions?surgical, calf length 20-30 mm Hg, to be worn during waking hours, dispense 1 pair, refills x 3 Pantoprazole (pantoprazole 40 mg oral delayed release tablet)?1?tab(s)?40?Milligram?By Mouth?Daily ? Results Recent Labs BLOOD COUNT & DIFF WBC 12.4 k/mm3 (High)?? 02/26/2023 06:20 RBC 4.78 m/mm3 ()?? 02/26/2023 06:20 Hgb 14.0 Gm/dL ()?? 02/26/2023 06:20 Hct 42.5 % ()?? 02/26/2023 06:20 MCV 88.9 femtoliters ()?? 02/26/2023 06:20 MCH 29.3 pg ()?? 02/26/2023 06:20 MCHC 32.9 g/dL (Low)?? 02/26/2023 06:20 Platelet Count 296 k/mm3 ()?? 02/26/2023 06:20 RDW-SD 43.8 femtoliters ()?? 02/26/2023 06:20 MPV 9.0 femtoliters (Low)?? 02/26/2023 06:20 Nucleated RBC (Automated) 0.0 #/100 WBC'S ()?? 02/26/2023 06:20 Abs. NRBC 0.0 k/mm3 ()?? 02/26/2023 06:20 Abs. Neut 10.5 k/mm3 (High)?? 02/26/2023 06:20 Abs. Lymph 1.4 k/mm3 ()?? 02/26/2023 06:20 Abs. Haskell 0.4 k/mm3 ()?? 02/26/2023 06:20 Abs. Eo 0.1 k/mm3 ()?? 02/26/2023 06:20 Abs. Baso 0.1 k/mm3 ()?? 02/26/2023 06:20 Neut % 84.8 % (High)?? 02/26/2023 06:20 Lymph % 11.0 % (Low)?? 02/26/2023 06:20 Haskell % 2.8 % (Low)?? 02/26/2023 06:20 Eos % 0.5 % ()?? 02/26/2023 06:20 Baso % 0.4 % ()?? 02/26/2023 06:20 Imm Gran 0.5 % ()?? 02/26/2023 06:20 Abs. Imm Gran 0.1 k/mm3 ()?? 02/26/2023 06:20 ?? CARDIAC High Sensitivity Troponin (HSTnT) 6 ng/L ()?? 02/26/2023 06:20 ?? CHEM GENERAL Sodium 140 mmol/L ()?? 02/26/2023 06:20 Potassium 4.3 mmol/L ()?? 02/26/2023 06:20 Chloride 102 mmol/L ()?? 02/26/2023 06:20 Bicarbonate Level 26 mmol/L ()?? 02/26/2023 06:20 Anion Gap 12 ()?? 02/26/2023 06:20 Glucose Level 116 mg/dL (High)?? 02/26/2023 06:20 Glucose, POC 110 mg/dL (High)?? 02/26/2023 06:11 BUN 9 mg/dL ()?? 02/26/2023 06:20 Creatinine-Blood 1.0 mg/dL ()?? 02/26/2023 06:20 Estimated GFR Creatinine 107 ML/MIN/1.73 M2 ()?? 02/26/2023 06:20 Calcium 9.3 mg/dL ()?? 02/26/2023 06:20 Magnesium 2.2 mg/dL ()?? 02/26/2023 06:20 Protein, Total 6.8 Gm/dL ()?? 02/26/2023 06:20 Albumin 4.4 Gm/dL ()?? 02/26/2023 06:20 AG Ratio 1.8 ()?? 02/26/2023 06:20 Alkaline Phosphatase 67 units/L ()?? 02/26/2023 06:20 AST (SGOT) 17 units/L ()?? 02/26/2023 06:20 ALT (SGPT) 13 units/L ()?? 02/26/2023 06:20 Bilirubin, Total 0.2 mg/dL ()?? 02/26/2023 06:20 Lactate 2.3 mmol/L (High)?? 02/26/2023 06:20 ? VIROLOGY Influenza A PCR NEGATIVE ()?? 02/26/2023 06:16 Influenza B PCR NEGATIVE ()?? 02/26/2023 06:16 RSV PCR NEGATIVE ()?? 02/26/2023 06:16 COVID-19 PCR Specimen Source NASAL ()?? 02/26/2023 06:16 COVID-19 PCR Result NEGATIVE ()?? 02/26/2023 06:16 ? Imaging(s) ?CT Head/Brain W/O Contrast ?? 02/26/2023 08:25??by Ayden OTTO, Olvin ?IMPRESSION: No acute intracranial pathology. ?CT Angio Head ?? 02/26/2023 08:27??by Bobby Zheng MD ?IMPRESSION: 1. No new acute intracranial large vessel occlusion. 2. The right middle cerebral artery is now patent. 3. No new hemodynamically-significant stenosis of the extracranial internal carotid and vertebral arteries. ?Chest 2 Views Frontal and Lat ?? 02/26/2023 08:51??by Isabella OTTO , [facility] ?Impression: There is no acute cardiopulmonary disease. ?ECG 12-Lead ?? 02/26/2023 06:08??by Clinton Leon MD ?Ventricular Rate: 63 BPM Atrial Rate: 63 BPM P-R Interval: 156 ms QRS Duration: 98 ms Q-T Interval: 454 ms QTC Calculation(Bazett): 464 ms P Emmons: 14 degrees R Emmons: 55 degrees T Emmons: 32 degrees Normal sinus rhythm Minimal voltage criteria for LVH, may be normal variant ( Sokolow-Flores ) Borderline ECG When compared with ECG of 19-JUL-2021 08:34, T wave inversion now evident in Anterior leads Confirmed by CLINTON LEON ([id number]) on 02/26/2023 9:18:41 AM ? * Le OTTO, Jovani Eugene: PERFORM Event Display: History and Physical Hospital Authored Date: Spoke with CARMELO Hannah from Neurology.?? They have evaluated the patient. They do not feel that the patient's exam findings are new. Recommended to resume Keppra at 1000 mg bid, and check level in 1 week with outpt follow-up with Dr. Oliva. No need for MRI or EEG inpatient per Neurology. Urine toxicology pending. Will observe patient in the hospital today for any further seizure activity, and allow him to see the Addiction Medicine team to formulate an outpatient plan. Likely discharge tomorrow if no further seizure activity. EKG study * Event Display: ECG 12-Lead Authored Date: Please click on pdf link to open report * Event Display: ECG 12-Lead Authored Date: Ventricular Rate: 63 BPM Atrial Rate: 63 BPM P-R Interval: 156 ms QRS Duration: 98 ms Q-T Interval: 454 ms QTC Calculation(Bazett): 464 ms P Emmons: 14 degrees R Emmons: 55 degrees T Emmons: 32 degrees Normal sinus rhythm Minimal voltage criteria for LVH, may be normal variant ( Sokolow-Flores ) Borderline ECG When compared with ECG of 19-JUL-2021 08:34, T wave inversion now evident in Anterior leads Confirmed by CLINTON LEON ([id number]) on 02/26/2023 9:18:41 AM Nedrow: CLINTON LEON Consult note * Giovanna Hannah NP: PERFORM Event Display: Consultation Note Authored Date: Patient: ??JAYDE BOJORQUEZ ? Age:??33 Years?Sex:??Male?:??1990?? Chief Complaint/Reason for Consultation coming from home, n/v/seizures, x1 seizure with EMT lasted 30 seconds History of Present Illness Jayde Bojorquez is a 33 year male presenting seizure. patient reported to have a seizure at home followed by 2 additional seizures at the hospital. Received lorazepam and levetiracetam load. Patient reported that he was snorting heroin at home and had then taken Suboxone too soon he states sendinghim into withdrawal. Patient exam with 4+/5 left upper and lower extremity weakness. ?? Patient reports that he has a history of seizures - not on AED - ? PNES. history of Right MCA CVA with positive PFO with left sided weakness that resolved. ??Polysubstance abuse and previous alcohol use disorder ?? Noncontrast head CT without acute intracranial pathology CTA head and neck with no new acute intracranial large vessel occlusion. ?? White blood cell count 12.4 with left shift.?? Lactate 2.3 ?? EKG: SR ?? 03/2019 MRI brain 1. Multiple small foci of acute infarction in the right MCA territory, most confluent in right parietal lobe. 2. Punctate intermediate diffusivity in the left frontal lobe in the left MCA territory, compatiblewith tiny subacute infarct. Involvement of multiple vascular distributions and infarct of differingages raises concern for cardioembolic source. ? VEEG DAY 1 (from 06/24/2016 at 7:27 PM until 06/25/2016 at 2:28 AM when the patient removed the electrodes)?? INTERICTAL EEG DESCRIPTION:??An occipital dominant rhythm of 8.5 to 9 Hz is present. Low voltage 18to 22 Hz activity is present over the anterior head regions bilaterally.?? Sleep was normal in configuration and distribution.?? ICTAL EEG AND VIDEO DESCRIPTION:??During the course of this day of continuous video EEG monitoring there were no push button events. The patient had one event at 10:41 PM characterized by generalizedshaking while lying covered in bed. Apart from motion artifact, there was no electroencephalographic correlate. This event lasted for about 3 minutes. The second event occurred at 12:54 AM and consisted of the patient flapping his hands. This event was likewise without electroencephalographic correlate.?? IMPRESSION:??The entire continuous ad terminal makeup operator video EEG monitoring is within normal limits during??wakefulness and sleep. The patient???s events of generalized shaking and hand flapping were both without electroencephalographic correlate. No focal, lateralized or epileptiform activity is present.? Review of Systems ?General: Denies fatigue, fever, chills ?Skin: denies rash ?Eyes: denies visual changes, blurry vision ?ENT: denies hearing changes, tinnitus ?Cardiovascular: denies chest pain ?Respiratory: denies SOB ?GI/: reports nausea ?? denies abdominal pain, vomiting, diarrhea ?denies loss of bladder or bowel function ?Neurological: reports left arm/leg weakness ?denies headache, dizziness, loss of vision, blurry vision, hearing changes, trouble swallowing,slurring, word finding difficulties, paresthesias, tremors, numbness/tingling/loss of sensation Objective Vital Signs?? Pulse Rate: 69 bpm (02/26/23 12:15:00) Respiratory Rate: 24 br/min (02/26/23 12:15:00) Systolic Blood Pressure: 124 mm Hg (02/26/23 12:15:00) Diastolic Blood Pressure: 73 mm Hg (02/26/23 12:15:00) Blood pressure sites: Arm, right (02/26/23 12:15:00) Mean Arterial Pressure: 90 mm Hg (02/26/23 12:15:00) Pulse Pressure: 51 mm Hg (02/26/23 12:15:00) Oxygen Saturation:??93 %??Low (02/26/23 12:15:00) Mode of Delivery (Oxygen): Room air (02/26/23 12:15:00) Early Warning Score: 4 (02/26/23 12:15:39) ? Pain Scores 1 - 10 Pain Scale Score: 5 (06:22) ?? Precautions Seizure Precautions ? Sandy Coma Scale Ewelina Coma Score: 15 (02/26/23 06:22:00) Motor Response-Adult: Obeys commands (02/26/23 06:22:00) Response Eye Opening: Spontaneously (02/26/23 06:22:00) Verbal Response-Adult: Oriented and converses (02/26/23 06:22:00) ? Mobility & Ambulation Level Mobility & Ambulation Level?? No qualifying data available. ?? Therapeutic Activity Therapeutic Activities/Mobility/Balance?? No qualifying data available. ? Physical Exam General Exam Appearance:?? sitting up in bed - attentive to examiner ?? HEENT: Normocephalic, atraumatic. No abrasions or ecchymosis. Conjunctiva without injection. PERRL.EOMI. Lids without ptosis. Nares patent. Mouth normal. Tongue midline. Neck supple ?? Cardiac: Regular rate and rhythm ?? Respiratory: Normal inspiration and expiration ?? Neurologic: Mentation: Awake, alert. Patient is oriented to person, place, time. Speech is clear and fluent. Follows simple and 3 step command. Able to repeat no ifs, ands or buts. Able to name objects. filler spreader: PERRL. EOMI. No nystagmus. VFF to confrontation. Smile symmetric, no droop. Tongue midline anduvula rises symmetrically. Facial sensation in tact to light touch. Hearing acuity in tact to voice. Lateral head deviation and shoulder shrug 5/5?? Motor: Normal bulk/tone. Strength?? Right 5/5 UE and LE, Left 4+/5UE 4+/5??lower extremity.??Home Health Speech Therapist equal. No pronator drift. Sensation: In tact to light touch of UEs and LEs Coordination: Finger to nose smooth Gait:??deferred ?? NIH Stroke Scale:??0 ?? 1a. LOC (0-alert; 1-not alert, arousable; 2-not alert, obtunded; 3- nonresponsive): _0 1b. Questions (0-answers two correctly; 1-answers one correctly; 2-answers neither correctly): _0 1c. Commands (0-perform two tasks; 1-performs one task; 2-performs neither tasks): _0 2. Gaze (0-normal; 1-partial gaze palsy; 2-forced deviation): _0 3. Visual hutchinson (0-no visual loss; 1-partial hemianopsia; 2-complete hemianopsia; 3-bilateral hemianopsia): _0 4. Facial palsy (0-normal; 1-minor palsy; 2-partial palsy; 3-complete paralysis): _0 5a. Motor left arm (0-normal; 1-drift before 10 sec; 2-falls before 10 sec; 3-no effort against gravity; 4-no movement): _0 5b. Motor right arm (0-normal; 1-drift before 10 sec; 2-falls before 10 sec; 3- no effort against gravity; 4-no movement): _0 6a. Motor left leg (0-normal; 1-drift before 5 sec; 2-falls before 5 sec; 3-no effort against gravity; 4-no movement): _0 6b. Motor right leg (0-normal; 1-drift before 5 sec; 2-falls before 5 sec; 3-no effort against gravity; 4-no movement): _0 7. Ataxia (0-absent; 1-one limb; 2-two limbs): _0 8. Sensory (0-absent; 1-mild/moderate; 2-severe/total loss): _0 9. Language (0-normal; 1-mild/moderate loss; 2-severe aphasia; 3-mute): _0 10. Dysarthria (0-normal; 1-mild/moderate; 2-severe): _0 11. Extinction (0-normal; 1-mild-one modality; 7-hvlxtb-ltk modality): _0 ?? NIHSS Total: _0 Assessment/Plan Jayde Bojorquez is a 33 year male presenting seizure. patient reported to have a seizure at home followed by 2 additional seizures at the hospital. Received lorazepam and levetiracetam load. Patient reported that he was snorting heroin at home and had then taken Suboxone too soon he states sendinghim into withdrawal. Patient exam with 4+/5 left upper and lower extremity weakness. ?? ? history of seizures - not on AED - ? PNES. history of Right MCA CVA with positive PFO with left sided weakness that resolved. ??Polysubstance abuse and previous alcohol use disorder ?? Noncontrast head CT without acute intracranial pathology. CTA head and neck with no new acute intracranial large vessel occlusion. ?? White blood cell count 12.4 with left shift.?? Lactate 2.3 ?? EKG: SR ?? Impression: provoked sz vs??epileptic versus nonepileptic with recrudescence of previous stroke symptoms ?? Recommending: -Continue levetiracetam 1000 mg p.o. twice daily -Follow-up levetiracetam level in 1 week??with follow-up with neurology - will schedule -trend lactate - substance use disorder consult - defer to medical team - seizure precautions - No need for MRI or EEG at this time - Urine toxicology pending - if no further episodes and patient remains at baseline from a neurology standpoint may d/c - continue substance use??cessation - supportive care per primary team ?? Discussed with Dr. Oliva messaged primary team recommendations ? Histories Allergies Allergies ?(Active and Proposed Allergies Only) NKA? (Severity: Unknown severity, Onset: Unknown) ? Past Medical History/Problem List Active Problems??(6) Concussion w/o coma GERD (gastroesophageal reflux disease) Heroin abuse History of CVA (cerebrovascular accident) History of seizure disorder PFO (patent foramen ovale) ? Past Surgical History Esophagogastroduodenoscopy with Bi-CAP: 12/24/18 ? Social History Alcohol Details:??Use: Past. ??Frequency: 1-2 times per month. 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 Substance Abuse Details:??Use: Past. ??Type: Cocaine, Heroin. ??Other: last 2018. Tobacco Details:??Never smoker ? Family History Mat. Grandfather: CAD - Coronary artery disease; Stroke ? Medications Home Medications Aspirin (aspirin 81 mg oral delayed release tablet)?81?Milligram?By Mouth?Daily Atorvastatin (atorvastatin 40 mg oral tablet)?1?tab(s)?40?Milligram?By Mouth?Daily at bedtime Buprenorphine-Naloxone (buprenorphine-naloxone 8 mg-2 mg sublingual film)?2 films Durable Medical Equipment (Compression Stockings)?See Instructions?surgical, calf length 20-30 mm Hg, to be worn during waking hours, dispense 1 pair, refills x 3 Pantoprazole (pantoprazole 40 mg oral delayed release tablet)?1?tab(s)?40?Milligram?By Mouth?Daily ? Inpatient Medications Medications (16) Active SCHEDULED: (6) Aspirin 81 mg EC Tablet (aspirin 81 mg oral delayed release tablet) ??81 mg, By Mouth, Daily buprenorphine-naloxone 8 mg-2 mg Film (Suboxone 8 mg-2 mg Sublingual Film) ??1 film, Sublingual, Daily Enoxaparin 40 mg Inj (Enoxaparin Inj) ??40 mg 0.4 mL, Subcutaneous Injection, Daily Keppra 500mg Tablet (Keppra 250 mg oral tablet) ??1,000 mg, By Mouth, 2 times a day NaCl 0.9% Flush 3ml (NaCL 0.9% Flush) ??3 mL, IV Push, Every 8 hours Pantoprazole 40 mg EC Tablet (pantoprazole 40 mg oral delayed release tablet) ??40 mg, By Mouth, Daily CONTINUOUS: (0) PRN: (10) Acetaminophen 325 mg Tablet (Acetaminophen Tablet) ??650 mg, By Mouth, Every 4 hours Dextromethorphan-Guaifenesin 20 mg-200 mg/10 mL Liqu UD (Robitussin DM Liquid) ??10 mL, By Mouth, Every 4 hours Docusate Sodium 100 mg Capsule (Docusate Sodium Capsule) ??100 mg 1 capsule, By Mouth, 2 times a day Lorazepam 4 mg/mL Inj Syringe (Ativan Inj) ??2 mg, IV Push Slowly, Once Melatonin 3 mg Tablet (Melatonin Tablet) ??3 mg, By Mouth, Daily at bedtime NaCl 0.9% Flush 3ml (NaCL 0.9% Flush) ??3 mL, IV Push, Every 8 hours Ondansetron 4 mg ODT (Zofran ODT 4 mg oral tablet, disintegrating) ??4 mg, By Mouth, Every 6 hours Polyethylene Glycol 17 Gm Powder (MiraLax Powder) ??17 Gm 1 pack/packet, By Mouth, Daily Senna Tablet ??8.6 mg 1 tablet, By Mouth, 2 times a day Simethicone 80 mg Chewable Tablet (Simethicone Tablet) ??80 mg, Chew, 3 times a day ? Results Recent Labs BLOOD COUNT & DIFF WBC 12.4 k/mm3 (High)?? 02/26/2023 06:20 RBC 4.78 m/mm3 ()?? 02/26/2023 06:20 Hgb 14.0 Gm/dL ()?? 02/26/2023 06:20 Hct 42.5 % ()?? 02/26/2023 06:20 MCV 88.9 femtoliters ()?? 02/26/2023 06:20 MCH 29.3 pg ()?? 02/26/2023 06:20 MCHC 32.9 g/dL (Low)?? 02/26/2023 06:20 Platelet Count 296 k/mm3 ()?? 02/26/2023 06:20 RDW-SD 43.8 femtoliters ()?? 02/26/2023 06:20 MPV 9.0 femtoliters (Low)?? 02/26/2023 06:20 Nucleated RBC (Automated) 0.0 #/100 WBC'S ()?? 02/26/2023 06:20 Abs. NRBC 0.0 k/mm3 ()?? 02/26/2023 06:20 Abs. Neut 10.5 k/mm3 (High)?? 02/26/2023 06:20 Abs. Lymph 1.4 k/mm3 ()?? 02/26/2023 06:20 Abs. Haskell 0.4 k/mm3 ()?? 02/26/2023 06:20 Abs. Eo 0.1 k/mm3 ()?? 02/26/2023 06:20 Abs. Baso 0.1 k/mm3 ()?? 02/26/2023 06:20 Neut % 84.8 % (High)?? 02/26/2023 06:20 Lymph % 11.0 % (Low)?? 02/26/2023 06:20 Haskell % 2.8 % (Low)?? 02/26/2023 06:20 Eos % 0.5 % ()?? 02/26/2023 06:20 Baso % 0.4 % ()?? 02/26/2023 06:20 Imm Gran 0.5 % ()?? 02/26/2023 06:20 Abs. Imm Gran 0.1 k/mm3 ()?? 02/26/2023 06:20 ?? CARDIAC High Sensitivity Troponin (HSTnT) 6 ng/L ()?? 02/26/2023 06:20 ?? CHEM GENERAL Sodium 140 mmol/L ()?? 02/26/2023 06:20 Potassium 4.3 mmol/L ()?? 02/26/2023 06:20 Chloride 102 mmol/L ()?? 02/26/2023 06:20 Bicarbonate Level 26 mmol/L ()?? 02/26/2023 06:20 Anion Gap 12 ()?? 02/26/2023 06:20 Glucose Level 116 mg/dL (High)?? 02/26/2023 06:20 Glucose, POC 110 mg/dL (High)?? 02/26/2023 06:11 BUN 9 mg/dL ()?? 02/26/2023 06:20 Creatinine-Blood 1.0 mg/dL ()?? 02/26/2023 06:20 Estimated GFR Creatinine 107 ML/MIN/1.73 M2 ()?? 02/26/2023 06:20 Calcium 9.3 mg/dL ()?? 02/26/2023 06:20 Magnesium 2.2 mg/dL ()?? 02/26/2023 06:20 Protein, Total 6.8 Gm/dL ()?? 02/26/2023 06:20 Albumin 4.4 Gm/dL ()?? 02/26/2023 06:20 AG Ratio 1.8 ()?? 02/26/2023 06:20 Alkaline Phosphatase 67 units/L ()?? 02/26/2023 06:20 AST (SGOT) 17 units/L ()?? 02/26/2023 06:20 ALT (SGPT) 13 units/L ()?? 02/26/2023 06:20 Bilirubin, Total 0.2 mg/dL ()?? 02/26/2023 06:20 Lactate 2.3 mmol/L (High)?? 02/26/2023 06:20 ?? ENDOCRINE/TUMOR MARKER TSH 0.39 uIU/mL (Low)?? 02/26/2023 06:20 Free T4 0.99 ng/dL ()?? 02/26/2023 06:20 ?? VIROLOGY Influenza A PCR NEGATIVE ()?? 02/26/2023 06:16 Influenza B PCR NEGATIVE ()?? 02/26/2023 06:16 RSV PCR NEGATIVE ()?? 02/26/2023 06:16 COVID-19 PCR Specimen Source NASAL ()?? 02/26/2023 06:16 COVID-19 PCR Result NEGATIVE ()?? 02/26/2023 06:16 ? Blood Glucose Trend Glucose Level:??116 mg/dL??High (02/26/23 06:20:00) Glucose, POC:??110 mg/dL??High (02/26/23 06:11:00) ? Urinalysis?? No qualifying data available. ?? Microbiology ?? COVID-19, RSV, and Flu A/B, Rapid PCR?? Completed?? Source: Nasal Body Site: Nose Collected Dt/Tm: 02/26/2023 06:09 Last Updated Dt/Tm: 02/26/2023 07:22 ? * Bobby Oliva MD: PERFORM Event Display: Consultation Note Authored Date: Attending PA/ADMINISTRATIVE SERVICES MANAGER Attestation:??I have reviewed the patient's medical history, findings on examination, diagnosis and treatment plan as documented in the PA/ADMINISTRATIVE SERVICES MANAGER note. Case and its management discussed with PA/ADMINISTRATIVE SERVICES MANAGER. Note * Le OTTO, Jovani Eugene: PERFORM Event Display: Discharge/Transfer Note Hospital Authored Date: [id number] Patient: ??JAYDE BOJORQUEZ ? Age:??33 Years?Sex:??Male?:??1990?? Patient Information Discharge Location: [facility] Primary Care Physician: Raghavendra Villarreal MD Admit Date/Time: 02/26/23 05:48 Discharge Disposition Discharge Disposition: Home: No Services Left AMA ?? Discharge Diagnosis Seizure (R56.9) Left-sided weakness (R53.1) Elevated lactic acid level (R79.89) Heroin abuse (F11.10) GERD (gastroesophageal reflux disease) (K21.9) ?? _ Discharge Medications Aspirin (aspirin 81 mg oral delayed release tablet)?81?Milligram?By Mouth?Daily Buprenorphine-Naloxone (buprenorphine-naloxone 8 mg-2 mg sublingual film)?1 - 1.5 film?Sublingual?2 times a day levETIRAcetam (Keppra 1000 mg oral tablet)?1?tab(s)?1,000?Milligram?By Mouth?2 times a day Pantoprazole (pantoprazole 40 mg oral delayed release tablet)?1?tab(s)?40?Milligram?By Mouth?Daily ? 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 He had a witnessed seizure with short postictal phase in the emergency room, and has been loaded on IV Keppra after receiving IV lorazepam. He is noted to have LUE and LLE weakness on neuro exam. Admission requested for recurrent breakthrough seizures. ?? The patient was admitted to the medical service. The patient was seen by the neurology service and not documented to have any acute focal neurologic deficits on exam. NIHSS score was 0. He had no further seizure activity throughout the day, and on review of previous video EEG monitoring in 2017, hedid not have any epileptiform activity with events of generalized shaking and hand flapping. Differential diagnoses include provoked seizure versus epilepsy versus nonepileptic seizure with recrudescence of previous stroke symptoms. Neurology recommended to continue levetiracetam 1000 mg twice daily, and follow-up levetiracetam level in 1 week which has been scheduled. He should then follow-up with Dr. Oliva after level is obtained. No indication for inpatient MRI or EEG per neurology. ?? At 8:00 PM,??the patient requested to leave AMA from the hospital.??He was counseled??regarding continued observation??for seizure activity,??and the ability to see the addiction medicine team??in the morning, as he had expressed interest in??services??for continued support of his??heroin use disord er.??Despite this, he was adamant to leave AMA from the hospital.??He was encouraged to??abstain from heroin use,??and continue his prescribed Suboxone at home.??A prescription??for 1 month supply oflevetiracetam??was sent to his pharmacy??([facility]). ?? Objective Assessment and Plan ?? Seizure (R56.9) Left-sided weakness (R53.1):??The patient was seen by the neurology service and not documented to have any acute focal neurologic deficits on exam. NIHSS score was 0. He had no further seizure activity throughout the day, and on review of previous video EEG monitoring in 2017, he did not have any epileptiform activity with events of generalized shaking and hand flapping. Differential diagnoses inc lude provoked seizure versus epilepsy versus nonepileptic seizure with recrudescence of previous stroke symptoms. Neurology recommended to continue levetiracetam 1000 mg twice daily, and follow-up levetiracetam level in 1 week which has been scheduled. He should then follow-up with Dr. Oliva after level is obtained. No indication for inpatient MRI or EEG per neurology. The patient left AMA despite recommendations to continue observation overnight. A 30-day supply of Keppra was sent to his pharmacy. ?? Elevated lactic acid level (R79.89):??Elevated in the setting of seizure. He remained afebrile and hemodynamically stable; no abdominal pain. He left AMA prior to repeat lactic acid level. ?? Heroin abuse (F11.10):??The patient??expressed interest in?? getting clean again. Suboxone 09/26 1 film daily was prescribed in the hospital, with plan to gradually increase dose (last took consistently??over 2 months ago, at that time was on 1 film in a.m. and 1.5 films in p.m.). Addiction medicine consultation requested, but patient left AMA prior to seeing. ?? GERD (gastroesophageal reflux disease) (K21.9):??Continue PPI as prescribed.? Vital Signs?? Temperature: 98.6 DegF (02/26/23 20:47:00) Temperature Route: Oral (02/26/23 20:47:00) Pulse Rate: 81 bpm (02/26/23 20:47:00) Respiratory Rate: 16 br/min (02/26/23 20:47:00) Systolic Blood Pressure: 131 mm Hg (02/26/23 20:47:00) Diastolic Blood Pressure: 66 mm Hg (02/26/23 20:47:00) Blood pressure sites: Arm, left (02/26/23 20:47:00) Mean Arterial Pressure: 92 mm Hg (02/26/23 19:15:00) Pulse Pressure: 40 mm Hg (02/26/23 19:15:00) Oxygen Saturation: 99 % (02/26/23 20:47:00) Mode of Delivery (Oxygen): Room air (02/26/23 20:47:00) Early Warning Score: 0 (02/26/23 20:48:03) ? Pain Scores 1 - 10 Pain Scale Score: 5 (06:22) ?? . Physical Exam Unchanged from H&P earlier today. Consultants Neurology, Dr. Oliva Pending Results Basic Metabolic Panel ordered on 02/27/2023 CBC w/ Differential ordered on 02/27/2023 Hemoglobin A1C (Monitoring) ordered on 02/27/2023 Lactic Acid Level ordered on 02/27/2023 Lipid Panel ordered on 02/27/2023 Follow-Up Appointments Added Follow Up ?Time Frame ?Comments Bobby Oliva MD?1 Weeks?After getting Keppra level drawn in 1 week. Phil OTTO, Raghavendra Michele?Within two weeks Patient Instructions Continue Keppra as prescribed. Get Keppra level drawn at the lab in 1 week per Neurology. Follow-up with Dr. Oliva (Neurology) after Keppra level drawn (they will arrange follow-up with you). Results Discharge Labs BLOOD COUNT & DIFF WBC 12.4 k/mm3 (High)?? 02/26/2023 06:20 RBC 4.78 m/mm3 ()?? 02/26/2023 06:20 Hgb 14.0 Gm/dL ()?? 02/26/2023 06:20 Hct 42.5 % ()?? 02/26/2023 06:20 MCV 88.9 femtoliters ()?? 02/26/2023 06:20 MCH 29.3 pg ()?? 02/26/2023 06:20 MCHC 32.9 g/dL (Low)?? 02/26/2023 06:20 Platelet Count 296 k/mm3 ()?? 02/26/2023 06:20 RDW-SD 43.8 femtoliters ()?? 02/26/2023 06:20 MPV 9.0 femtoliters (Low)?? 02/26/2023 06:20 Nucleated RBC (Automated) 0.0 #/100 WBC'S ()?? 02/26/2023 06:20 Abs. NRBC 0.0 k/mm3 ()?? 02/26/2023 06:20 Abs. Neut 10.5 k/mm3 (High)?? 02/26/2023 06:20 Abs. Lymph 1.4 k/mm3 ()?? 02/26/2023 06:20 Abs. Haskell 0.4 k/mm3 ()?? 02/26/2023 06:20 Abs. Eo 0.1 k/mm3 ()?? 02/26/2023 06:20 Abs. Baso 0.1 k/mm3 ()?? 02/26/2023 06:20 Neut % 84.8 % (High)?? 02/26/2023 06:20 Lymph % 11.0 % (Low)?? 02/26/2023 06:20 Haskell % 2.8 % (Low)?? 02/26/2023 06:20 Eos % 0.5 % ()?? 02/26/2023 06:20 Baso % 0.4 % ()?? 02/26/2023 06:20 Imm Gran 0.5 % ()?? 02/26/2023 06:20 Abs. Imm Gran 0.1 k/mm3 ()?? 02/26/2023 06:20 ?? CARDIAC High Sensitivity Troponin (HSTnT) 6 ng/L ()?? 02/26/2023 06:20 ? CHEM GENERAL Sodium 140 mmol/L ()?? 02/26/2023 06:20 Potassium 4.3 mmol/L ()?? 02/26/2023 06:20 Chloride 102 mmol/L ()?? 02/26/2023 06:20 Bicarbonate Level 26 mmol/L ()?? 02/26/2023 06:20 Anion Gap 12 ()?? 02/26/2023 06:20 Glucose Level 116 mg/dL (High)?? 02/26/2023 06:20 Glucose, POC 110 mg/dL (High)?? 02/26/2023 06:11 BUN 9 mg/dL ()?? 02/26/2023 06:20 Creatinine-Blood 1.0 mg/dL ()?? 02/26/2023 06:20 Estimated GFR Creatinine 107 ML/MIN/1.73 M2 ()?? 02/26/2023 06:20 Calcium 9.3 mg/dL ()?? 02/26/2023 06:20 Magnesium 2.2 mg/dL ()?? 02/26/2023 06:20 Protein, Total 6.8 Gm/dL ()?? 02/26/2023 06:20 Albumin 4.4 Gm/dL ()?? 02/26/2023 06:20 AG Ratio 1.8 ()?? 02/26/2023 06:20 Alkaline Phosphatase 67 units/L ()?? 02/26/2023 06:20 AST (SGOT) 17 units/L ()?? 02/26/2023 06:20 ALT (SGPT) 13 units/L ()?? 02/26/2023 06:20 Bilirubin, Total 0.2 mg/dL ()?? 02/26/2023 06:20 Lactate 2.3 mmol/L (High)?? 02/26/2023 06:20 ?? ENDOCRINE/TUMOR MARKER TSH 0.39 uIU/mL (Low)?? 02/26/2023 06:20 Free T4 0.99 ng/dL ()?? 02/26/2023 06:20 ?? TOXICOLOGY/TDM Cannabinoid Screen, Urine POSITIVE (Abnormal)?? 02/26/2023 16:30 Cocaine Metabolite Screen, Urine NONE DETECTED ()?? 02/26/2023 16:30 Opiate Screen, Urine POSITIVE (Abnormal)?? 02/26/2023 16:30 ? UA/URINALYSIS Appear/Color, Urine YELLOW ()?? 02/26/2023 16:30 Specific [place], Urine 1.048 (High)?? 02/26/2023 16:30 pH, Urine 7.5 ()?? 02/26/2023 16:30 Albumin, Urine 1+ (Abnormal)?? 02/26/2023 16:30 Glucose, Urine NEGATIVE ()?? 02/26/2023 16:30 Ketones, Urine NEGATIVE ()?? 02/26/2023 16:30 Bilirubin, Urine NEGATIVE ()?? 02/26/2023 16:30 Hemoglobin, Urine NEGATIVE ()?? 02/26/2023 16:30 Nitrite, Urine NEGATIVE ()?? 02/26/2023 16:30 Leukocyte, Urine NEGATIVE ()?? 02/26/2023 16:30 Urobilinogen NORMAL mg/dL ()?? 02/26/2023 16:30 WBC's, Urine 1 /HPF ()?? 02/26/2023 16:30 RBC's, Urine 1 /HPF ()?? 02/26/2023 16:30 Hold Urine Culture Testing available 48 hours from time of collection. ()?? 02/26/2023 16:30 ?? VIROLOGY Influenza A PCR NEGATIVE ()?? 02/26/2023 06:16 Influenza B PCR NEGATIVE ()?? 02/26/2023 06:16 RSV PCR NEGATIVE ()?? 02/26/2023 06:16 COVID-19 PCR Specimen Source NASAL ()?? 02/26/2023 06:16 COVID-19 PCR Result NEGATIVE ()?? 02/26/2023 06:16 ? 30??minutes spent on discharge Patient Care team information Care Team Personnel Name: Phil OTTO, Raghavendra Michele Position: Reference Physician Member Role: PCP Address: Address: [address] [place] [id number]- Name: Bala Raymundo RN Position: [facility] ED RN W/OE and Tasks Member Role: Primary Care Nurse Name: Lisa Fisher RN Position: [facility] SN RN Member Role: Primary Care Nurse Name: Liberty Spears RN Position: [facility] RN Supv Member Role: Primary Care Nurse Name: Philomena Enamorado RN Position: [facility] RN Supv Member Role: Primary Care Nurse Name: Olga BILLINGS Attending Position: [facility] ED Medicine MD Name: Milla Carter RN Position: [facility] RN W/OE and Tasks Member Role: Patient Care Provider Name: Tammy Johnson RN Position: [facility] RN W/OE and Tasks Member Role: Patient Care Provider Name: Sindhu Amos Position: [facility] Care Team Related Persons Name: BHAKTI BOJORQUEZ Address: home [address] [place] [address] Name: CONCEPCION BOJORQUEZ Address: home [address] [place] [address]
--- OUTSIDE RECORDS SUMMARY | 2023-10-16 08:10 | XMS_ITS | Continuity of Care Document ---
Author Organization [facility] Address [address] [place] [id number]- Care Team Providers Care Choreography Director Name Role Phone Raghavendra Villarreal MD Primary Care Physician Encounter [facility] Date(s): 11/22/21 - 12/22/21 [facility] [address] [place] [id number]- Attending Physician: Joe Thapa Admitting Physician: Joe Thapa Referring Physician: Joe Thapa Allergies, Adverse Reactions, Alerts No Known Allergies Immunizations Given and Recorded Vaccine Date Status Refusal Reason tetanus/diphtheria/pertussis, acel(Tdap) 05/30/11 Given Not Given Vaccine Date Status Refusal Reason pneumococcal 23-valent vaccine 07/14/16 Not Given Permanently Refused Medications aspirin 81 mg oral delayed release tablet 81 mg, By Mouth, Daily, # 30 tablet, Refills 0, Tot. Refills 0, Maintenance, 04/10/19 10:43:00 EST,Route to Pharmacy Electronically, [facility], 187, cm, 04/09/19 16:49:00 EST, Height,85.1, kg, 04/09/19 23:03:00 EST, Dry Weight Start Date: 04/10/19 Status: Ordered atorvastatin 40 mg oral tablet 1 tablet = 40 mg, By Mouth, Daily at bedtime, # 30 tablet, 0 Refills, Maintenance, 04/10/19 10:43:00 EST, Tablet, [facility], 187, cm, 04/09/19 16:49:00 EST, [...] 04/10/19 10:44:00 EST, Route to Pharmacy Electronically, [facility], 187, cm, 04/09/19 16:49:00 EST, [...] Name: Phil OTTO, Raghavendra Michele Address: Address: [address] [place] [address] Drive [address] [place] [address]
== END 2023-10-15 12:38 | disposition home or self-care (01) ==
PROVIDERS: PCP Internal Medicine; Visit Provider Internal Medicine Gastroenterology
PROC: 0DJ08ZZ Inspection of Upper Intestinal Tract, Via Natural or Artificial Opening Endoscopic (ICD-10-PCS; CPT 43235; principal; 2023-10-15 12:40)
DX: K22.70 Barrett's esophagus without dysplasia (principal); K44.9 Diaphragmatic hernia without obstruction or gangrene; K21.9 Gastro-esophageal reflux disease without esophagitis; K29.80 Duodenitis without bleeding; G40.909 Epilepsy, unspecified, not intractable, without status epilepticus; E78.00 Pure hypercholesterolemia, unspecified; Q21.12 Patent foramen ovale; E66.3 Overweight; Z86.73 Personal history of transient ischemic attack (TIA), and cerebral infarction without residual deficits; Z79.899 Other long term (current) drug therapy; Z79.891 Long term (current) use of opiate analgesic; Z98.890 Other specified postprocedural states
CPT/HCPCS: 43239; 88305; 88313; J2704

== ENCOUNTER → 2023-10-15 10:07 | Outpatient (BNV) | payer OTHER, SELFPAY | PROVIDERS: PCP Internal Medicine; Visit Provider Internal Medicine Gastroenterology | DX: K22.70 Barrett's esophagus without dysplasia (principal) | CPT/HCPCS: 43239 ==

== ENCOUNTER 2024-06-09 15:47 | Outpatient (AMB) | payer OTHER, SELFPAY ==
--- NOTE | 2024-06-09 15:53 | MHC.PC.OV ---
Vital Signs 06/09/24 15:57 Height 6 ft 2 in Weight 248 lb 4 oz BMI 31.9 BP 124/80 Blood Pressure Location Lt brachial Position Sitting Pulse 72 Pulse Source Pulse Oximeter Temp 97.5 F Temp Source Temporal Artery Scan Pulse Oximetry (%) 94 Oxygen Delivery Method Room Air Intake Visit Reasons: migraine Intake Note: Patient is here to follow up on Migraine. Is Consultant Required: No Wood Gluer: Not Required per policy Accompanied by: Self / Same As Patient Allergies No Known Allergies [No Known Allergies*] Allergy (Verified 06/09/24 16:04) Medication List - Last Reconciled 06/09/24 by ALEKSANDRA Morfin buprenorphine-naloxone 8-2 mg 2 tabs sublingual DAILY tlcupthdoi-wqstddzieyyxk-wwwp 50-300-40 mg (Fioricet) 1 cap PO Q8H PRN 30 days ibuprofen 800 mg PO Q8H PRN pantoprazole 40 mg PO BID 90 days Tobacco use date assessed: 06/09/24 Dental Screening Dental Screen Date: 06/09/24 Did you have a dental visit in the last 12 months?: Yes Did you have a dental problem in the last 6 months where you did not have access to dental care?: No Was dental information given to patient?: Patient has dentist HPI migraine HPI Details The patient is a 34-year-old male presenting with recurrent migraines. The patient describes the onset of migraine symptoms approximately six months apart initially, increasing in frequency to monthly episodes at present. Each migraine episode follows a consistent pattern, beginning with an aura of mild headaches before intensifying into severe pain behind both eyes. These episodes are accompanied by light sensitivity, sound sensitivity, and persistent vomiting. The migraines render him unable to fulfill personal and professional responsibilities. He suspects but is uncertain whether anesthesia for periodic endoscopic procedures for GERD exacerbates or triggers the migraines, as three recent occurrences coincided with post-procedural recovery. He reports a high pain threshold but indicates concern due to the worsening intensity of the migraines. While previously prescribed medications have not been initiated due to dispensing issues, the patient desires to explore pharmacological management. lungs clear [facility] Medical History Overweight (BMI 25.0-29.9) History of substance abuse Epilepsy PFO with atrial septal aneurysm Cerebrovascular accident (CVA) due to embolism of right middle cerebral artery Seizure CVA (cerebral vascular accident) Drug abuse PFO (patent foramen ovale) GERD (gastroesophageal reflux disease) Duodenitis Pure hypercholesterolemia Surgical History History of esophagogastroduodenoscopy (EGD) History of surgery Family History Father No problems noted. Mother No problems noted. 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 1. Little interest or pleasure in doing things: not at all 2. Feeling down, depressed, or hopeless: not at all 3. Trouble falling or staying asleep, or sleeping too much: not at all 4. Feeling tired or having little energy: not at all 5. Poor appetite or overeating: not at all 6. Feeling bad about yourself - or that you are a failure or have let yourself or your family down: not at all 7. Trouble concentrating on things, such as reading the newspaper or watching television: not at all 8. Moving or speaking so slowly that other people could have noticed. Or the opposite - being so fidgety or restless that you have been moving around a lot more than usual: not at all 9. Thoughts that you would be better off or of hurting yourself in some way: not at all Total score: 0 Depression Screening Interpretation: Negative Depression Screening Done: Yes 95871 - PHQ-9 Billing: Yes Source: Developed by Drs. Mp Ryan, Orin Guzman, Patel Yen and colleagues, with an educational dung from [employer]. Thrive Questionnaire Date Thrive assessed: 06/09/24 I am a: Patient What is your living situation today?: I have a steady place to live Within the past 12 months, did the food you bought not last and you didn't have the money to get more?: Never true Within the past 12 months, did you worry whether your food would run out before you got money to buy more?: Never true Do you have trouble paying for medicines?: No Do you have trouble getting transportation to medical appointments?: No Do you have trouble paying your heating and electricity bill?: No Do you have trouble taking care of your child, family member or friend?: No Do you have trouble with day-to-day activities such as bathing, preparing meals, shopping, managing finances, etc.?: No Are you currently unemployed and looking for a job?: No Are you interested in more education?: No Please select the resources that you would like help with: None Currently or been in a relationship where the following occur: No concerns reported THRIVE Score: 0 AUDIT C Alcohol Use Questionnaire (AUDIT-C) 1. How often do you have a drink containing alcohol?: Never Total Score: 0 Score Reviewed/Action Taken: No STEPHANIE-7 AMB Questionnaire STEPHANIE-7 Date STEPHANIE - 7 assessed: 06/09/24 Feeling nervous, anxious, or on edge: 0 = Not at all Not being able to stop or control worryin = Not at all Worrying too much about different things: 0 = Not at all Trouble relaxin = Not at all Being so restless that it is hard to sit still: 0 = Not at all Becoming easily annoyed or irritable: 0 = Not at all Feeling afraid as if something awful might happen: 0 = Not at all Total STEPHANIE-7 score (0-4 normal; 5-9 mild; 10-14 moderate; 15-21 severe): 0 Source: Developed by Drs. Mp Ryan, Orin Guzman, Patel Yen and colleagues, with an educational dung from [employer]. STEPHANIE-7 Assessment Billing STEPHANIE-7 Assessment Tool: STEPHANIE-7 Assessment 31345 Review of Systems Const Details: - Neurological: Reports migraines with associated aura, denies dizziness and lightheadedness - Gastrointestinal: Reports vomiting during migraine episodes - Ophthalmologic: Reports blurred vision, visual disturbances, and sensitivity to light during migraine episodes - Auditory: Reports sensitivity to noise during migraine episodes Reports headache(s) Eyes Reports blurry vision, Denies loss of vision and Reports photophobia ENT Denies vertigo, Reports dizziness, Reports headache(s) and Denies sore throat Card Denies chest pain, Denies leg edema and Denies lightheadedness Resp Denies cough and Denies hemoptysis GI Denies abdominal pain, Denies melena, Denies constipation, Reports heartburn, Denies diarrhea and Reports vomiting Neuro Denies Abnormal speech present, Denies behavioral changes, Denies vertigo, Reports dizziness, Reports headache(s), Denies loss of vision and Denies memory loss Psych Denies anxiety, Denies behavioral changes, Denies depression, Denies memory loss and Denies panic attacks Physical exam (Primary Care) Vital Signs: Last Vital Signs Temp 97.5 F 06/09/24 15:57 Pulse 72 06/09/24 15:57 BP 124/80 06/09/24 15:57 Pulse Ox 94 06/09/24 15:57 Oxygen Delivery Method Room Air 06/09/24 15:57 BMI result Body Mass Index 31.9 Tobacco/Smoking Status: Tobacco use Status Tobacco use date assessed 06/09/24 06/09/24 16:02 Patient Tobacco Use Status Never used Tobacco 06/09/24 15:53 e-Cigarette/Vaping Use Never Used 06/09/24 15:53 PHQ-9: PHQ-9 Score PHQ-9: Total score 0 06/09/24 16:08 Depression Screening Interpretation: Negative Thrive Assessment: Date of Thrive Assessment Date Thrive assessed 06/09/24 06/09/24 15:56 Currently or been in a relationship where the following occur: No concerns reported Const General: healthy appearing, no acute distress, alert and awake Nutritional Appearance: well nourished Orientation/consciousness: oriented to person, oriented to place and oriented to time HENMT Ears: external ears normal General nose exam: Normal external nose present Face and sinus: No sinus tenderness Eyes Conjunctivae: conjunctivae normal Sclerae: sclerae normal Pupils: Equal, round and reactive pupils present Direct Ophthalmoscopy: photophobia Neck Neck: Yes no lymphadenopathy and Yes no JVD Thyroid: Thyroid normal Carotids: no bruits Resp Effort & Inspection: normal respiratory effort and not tachypneic Auscultation: no crackles, no rales, no rhonchi and no wheezes Cardio Rate: regular rate Rhythm: regular rhythm Heart sounds: no murmurs and normal S1 and S2 GI Palpation (GI): Soft to palpation, nontender, no hepatomegaly and no splenomegaly Auscultation: normal bowel sounds Neuro General: oriented to person, oriented to place and oriented to time Cranial nerves: Yes Equal, round and reactive pupils present Speech: No Abnormal speech present Gait exam (Neuro): Normal gait present Motor exam (neuro): no tremor noted Extrem Right upper extremity: full ROM Left upper extremity: full ROM Right lower extremity: full ROM; no edema Left lower extremity: full ROM; no edema Psych Mental Status: mental status grossly normal Speech and movement: Normal speech and movement present Affect: normal affect Attitude: cooperative Thought process: Normal thought process present Coding Level of Care Code Est Pt Level 3 (89834) Diagnoses Acute nonintractable headache, unspecified headache type R51.9 Headache type: unspecified Headache chronicity pattern: acute headache Intractability: not intractable Gastroesophageal reflux disease without esophagitis K21.9 Esophagitis presence: without esophagitis Additional Codes PHQ-9 - 42403 - PHQ-9 Billing: Yes ([id number]) STEPHANIE-7 Assessment Billing - STEPHANIE-7 Assessment Tool: STEPHANIE-7 Assessment 18076 ([id number]) Time Spent (min) 33 Assessment & Plan Assessment & Plan (1) Headache: Code(s): R51.9 - Headache, unspecified Category: Medical Qualifiers: Headache type: unspecified Headache chronicity pattern: acute headache Intractability: not intractable Qualified Code(s): R51.9 - Headache, unspecified (2) GERD (gastroesophageal reflux disease): Comment: EGD with [facility] 05/12/20 Code(s): K21.9 - Gastro-esophageal reflux disease without esophagitis Category: Medical Qualifiers: Esophagitis presence: without esophagitis Qualified Code(s): K21.9 - Gastro-esophageal reflux disease without esophagitis Plan During this visit, I advised the patient to manage migraine episodes by using Motrin 800 mg and initiating the use of Fiorcet for acute migraine episodes pending prescription access. The medications were ordered prior by the patient primary physician but he did not pick them up and has been trying to manage his migraine with Advil with inconsistent effects. Medications were refilled for the patient. Emphasis was placed on monitoring for medication-overuse headaches and utilizing magnesium 500 mg and vitamin B2 400 mg daily for prophylaxis. The importance of proper pantoprazole dosing prior to meals was reiterated. Further evaluation and potential adjustment of treatment efficacy will be conducted during the next visit. Patient was informed and verbally consented to the use of an ambient scribe for clinic note documentation during this visit. Medications: Refilled gbbihuvvjo-uemarhhwzjnuc-gqog 50-300-40 mg (Fioricet) 1 cap PO Q8H 30 days PRN 60 caps 2RF headaches ibuprofen 800 mg PO Q8H PRN 14 tabs 0RF pain
[2024-06-09 15:57] VITALS: BP 124/80; PULSE 72; TEMP 36.4; O2SAT 94; BMI 31.9
== END 2024-06-09 17:12 | disposition home or self-care (01) ==
LOC: HO.HMCH 15:47
PROVIDERS: PCP Internal Medicine
DX: R51.9 Headache, unspecified (principal); K21.9 Gastro-esophageal reflux disease without esophagitis

== ENCOUNTER → 2024-06-09 15:47 | Outpatient (BNVA) | payer OTHER, SELFPAY | PROVIDERS: PCP Internal Medicine | DX: R51.9 Headache, unspecified (principal); K21.9 Gastro-esophageal reflux disease without esophagitis | CPT/HCPCS: 96127 ==

== ENCOUNTER 2024-09-30 14:08 | Outpatient (AMB) | payer OTHER, SELFPAY ==
[2024-09-30 14:14] VITALS: BP 110/78; PULSE 83; O2SAT 94; BMI 31.6
--- NOTE | 2024-09-30 14:14 | A.OFFPC_ITS ---
Vital Signs 09/30/24 14:14 Height 6 ft 2 in Weight 246 lb 2 oz BMI 31.6 BP 110/78 Blood Pressure Location Lt brachial Position Sitting Pulse 83 Pulse Source Pulse Oximeter Pulse Oximetry (%) 94 Oxygen Delivery Method Room Air Intake Visit Reasons: [employer] Agent Required: No Accompanied by: Self / Same As Patient Allergies No Known Allergies (No Known Allergies*) Allergy (Verified 09/30/24 14:53) Medication List - Last Reconciled 09/30/24 by Raghavendra Villarreal MD buprenorphine-naloxone 8-2 mg 2 tabs sublingual DAILY butalbital-acetaminophen 50-325 mg 1 tab PO Q4-6H PRN 15 days ibuprofen 800 mg PO Q8H PRN pantoprazole 40 mg PO BID 90 days Tobacco use date assessed: 09/30/24 Dental Screening Dental Screen Date: 09/30/24 Did you have a dental visit in the last 12 months?: Yes Did you have a dental problem in the last 6 months where you did not have access to dental care?: No Was dental information given to patient?: Patient has dentist MARÍA Terry HPI Details Patient comes in today for further management of his headaches, which she feels are getting worse States that he has headaches on a daily basis for a while now but does get a severe bout of headache at least 2 to 3 times a month Note that these more severe headaches are usually preceded by some or and are associated with photophobia and nausea He reports (+) history of migraines but states that they were rarely bothering him in the past but he is now concerned about the way his headaches are now presenting States that when he gets his more severe bouts of headaches, he feels drained and can hardly do anything productive for the rest of today Adds that he presently has small children at home in sleeping at night has not been a challenge and he is not sure if this is also contributing to his recent increasing headaches States that he has been taking his Fioricet recently but it does not seem to be helping much with his headaches He denies any dizziness Denies any chest pains, no shortness of breath No vomiting, no abdominal pain and no change in bowel habits noted [facility] Medical History (Updated 10/01/24 @ 05:49 by Raghavendra Villarreal MD) Migraine headache with aura Overweight (BMI 25.0-29.9) History of substance abuse Epilepsy PFO with atrial septal aneurysm Cerebrovascular accident (CVA) due to embolism of right middle cerebral artery Seizure CVA (cerebral vascular accident) Drug abuse PFO (patent foramen ovale) GERD (gastroesophageal reflux disease) Duodenitis Pure hypercholesterolemia Surgical History History of esophagogastroduodenoscopy (EGD) History of surgery Family History Father No problems noted. Mother No problems noted. 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 1. Little interest or pleasure in doing things: nearly every day 2. Feeling down, depressed, or hopeless: not at all 3. Trouble falling or staying asleep, or sleeping too much: not at all 4. Feeling tired or having little energy: not at all 5. Poor appetite or overeating: not at all 6. Feeling bad about yourself - or that you are a failure or have let yourself or your family down: not at all 7. Trouble concentrating on things, such as reading the newspaper or watching television: not at all 8. Moving or speaking so slowly that other people could have noticed. Or the opposite - being so fidgety or restless that you have been moving around a lot more than usual: not at all 9. Thoughts that you would be better off or of hurting yourself in some way: not at all Total score: 3 Depression Screening Interpretation: Positive Depression Screening Follow-up: Follow-up Visit Requested Depression Screening Done: Yes Source: Developed by Drs. Mp Ryan, Orin B.Patel Ga and colleagues, with an educational dung from [employer]. Thrive Questionnaire Date Thrive assessed: 09/30/24 I am a: Patient What is your living situation today?: I have a steady place to live Within the past 12 months, did the food you bought not last and you didn't have the money to get more?: Never true Within the past 12 months, did you worry whether your food would run out before you got money to buy more?: Never true Do you have trouble paying for medicines?: No Do you have trouble getting transportation to medical appointments?: No Do you have trouble paying your heating and electricity bill?: No Do you have trouble taking care of your child, family member or friend?: No Do you have trouble with day-to-day activities such as bathing, preparing meals, shopping, managing finances, etc.?: No Are you currently unemployed and looking for a job?: No Are you interested in more education?: No Please select the resources that you would like help with: None Currently or been in a relationship where the following occur: No concerns reported THRIVE Score: 0 AUDIT C Alcohol Use Questionnaire (AUDIT-C) 1. How often do you have a drink containing alcohol?: Never 3. How often do you have six or more drinks on one occasion?: Never Total Score: 0 Score Reviewed/Action Taken: Yes STEPHANIE-7 AMB Questionnaire STEPHANIE-7 Date STEPHANIE - 7 assessed: 09/30/24 Feeling nervous, anxious, or on edge: 0 = Not at all Not being able to stop or control worryin = Not at all Worrying too much about different things: 0 = Not at all Trouble relaxin = Not at all Being so restless that it is hard to sit still: 0 = Not at all Becoming easily annoyed or irritable: 0 = Not at all Feeling afraid as if something awful might happen: 0 = Not at all Total STEPHANIE-7 score (0-4 normal; 5-9 mild; 10-14 moderate; 15-21 severe): 0 Source: Developed by Drs. Mp Ryan, Patel Phillips and colleagues, with an educational dung from [employer]. Review of Systems Const Denies chills, Reports fatigue, Denies fever(s) and Reports headache(s) (increasing lately - see HPI) Eyes Reports photophobia (associated with headaches) ENT Denies dysphagia, Denies dizziness, Denies otalgia, Reports headache(s) (increasing lately - see HPI), Denies neck pain, Denies odynophagia and Denies sore throat Card Denies chest pain, Denies rapid heart rate, Denies irregular heart rhythm, Denies palpitations and Denies dyspnea Resp Denies chest congestion, Denies cough and Denies dyspnea GI Denies abdominal pain, Denies constipation, Denies dysphagia, Denies heartburn, Denies diarrhea, Reports nausea (associated with headaches), Denies odynophagia and Denies vomiting Denies difficulty urinating, Denies dysuria, Denies urinary frequency and Denies urinary urgency Musc Denies back pain, Denies arthralgias and Denies neck pain Skin/Breast Denies rash Neuro Denies dizziness, Reports headache(s) (increasing lately - see HPI) and Denies paresthesias Endo Reports fatigue and Denies palpitations Physical exam (Primary Care) Vital Signs: Last Vital Signs Pulse 83 09/30/24 14:14 BP 110/78 09/30/24 14:14 Pulse Ox 94 09/30/24 14:14 Oxygen Delivery Method Room Air 09/30/24 14:14 BMI result Body Mass Index 31.6 Tobacco/Smoking Status: Tobacco use Status Tobacco use date assessed 09/30/24 09/30/24 14:27 Patient Tobacco Use Status Never used Tobacco 09/30/24 14:27 e-Cigarette/Vaping Use Never Used 09/30/24 14:27 PHQ-9: PHQ-9 Score PHQ-9: Total score 3 09/30/24 15:02 Depression Screening Interpretation: Positive Depression Screening Follow-up: Follow-up Visit Requested Thrive Assessment: Date of Thrive Assessment Date Thrive assessed 09/30/24 09/30/24 14:27 Currently or been in a relationship where the following occur: No concerns reported Const General: no acute distress and alert HENMT Ears: TM's normal bilaterally and EAC's normal Throat: Yes posterior oropharynx normal and Yes tonsils normal (no TP congestion) Eyes Direct Ophthalmoscopy: photophobia (associated with headaches) Neck Neck: Yes supple and No lymphadenopathy Thyroid: Thyroid normal Resp Auscultation: clear to auscultation bilaterally, no rales and no wheezes Cardio Rate: regular rate Rhythm: regular rhythm Heart sounds: no murmurs GI Palpation (GI): Soft to palpation and nontender Auscultation: normal bowel sounds General: Yes no CVA tenderness Back/Spine/Pelvis Back: no CVA tenderness Thoracic/Lumbar Spine: No lumbar spinal tenderness Skin Rashes: no rashes Neuro General: moves all extremities, no focal motor deficits and CN's II-XI intact bilaterally Extrem General: Yes no clubbing, cyanosis or edema Coding Level of Care Code Est Pt Level 4 (95044) Diagnoses Migraine with aura and without status migrainosus, not intractable G43.109 Status migrainosus presence: without status migrainosus Intractability: not intractable Assessment & Plan Assessment & Plan (1) Migraine headache with aura: Code(s): G43.109 - Migraine with aura, not intractable, without status migrainosus Category: Medical Qualifiers: Status migrainosus presence: without status migrainosus Intractability: not intractable Qualified Code(s): G43.109 - Migraine with aura, not intractable, without status migrainosus Plan: Discussed with patient the importance of avoidance of all potential migraine triggers as much as possible Have advised him that lack of sleep, which he is likely going to at this time with having small children in the household, can also contribute to increasing headaches Will go ahead and start him for now on topiramate 25 mg Q HS for headache prophylaxis - he is advised that this should be taken on a daily basis for it to be effective Will also start him on sumatriptan 50 mg PRN and he is instructed to take this as early as possible in the headache process for it to work better He had a head CT done back in 2021 that came out negative with no acute intracranial pathology although there is sequelae of remote right middle cerebral artery territory infarct without significant change noted on his scan Will also go ahead and refer him to Neurology for further evaluation and management and I will leave it up to Neurology to determine if he needs another head CT at this time for further evaluation Plan Follow-up in 3 months Orders: Referrals Neurology Referral G43.109 - Migraine with aura, not intractable, without status migrainosus Medications: New topiramate 25 mg PO BEDTIME 30 tabs 3RF 30 days sumatriptan succinate take 1 tab at onset of headache; if no relief may repeat 1 tab after at least 2 hrs; max = 4 tabs/24 hr PO 10 tabs 3RF G43.109 - Migraine with aura, not intractable, without status migrainosus
== END 2024-09-30 15:05 | disposition home or self-care (01) ==
LOC: HO.HMCH 14:09
PROVIDERS: PCP Internal Medicine; Visit Provider Internal Medicine
DX: G43.109 Migraine with aura, not intractable, without status migrainosus (principal)

== ENCOUNTER 2024-10-01 15:09 | Outpatient (AMB) | payer OTHER, SELFPAY ==
[2024-10-01 15:14] VITALS: BP 134/82; PULSE 112; O2SAT 94; BMI 31.2
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
== END 2024-10-02 15:05 | disposition home or self-care (01) ==
LOC: HO.HSMS 15:10
PROVIDERS: PCP Internal Medicine; Visit Provider Nurse Practitioner Family
DX: G43.709 Chronic migraine without aura, not intractable, without status migrainosus (principal); R06.83 Snoring; G47.9 Sleep disorder, unspecified; G47.19 Other hypersomnia; Q21.10 Atrial septal defect, unspecified; I87.2 Venous insufficiency (chronic) (peripheral); I63.9 Cerebral infarction, unspecified; I63.411 Cerebral infarction due to embolism of right middle cerebral artery; R51.9 Headache, unspecified
CPT/HCPCS: 99204

== ENCOUNTER 2024-10-22 13:33 | Outpatient (REF) | payer OTHER, SELFPAY ==
--- NOTE | ~2024-10-22 | MR_ITS ---
EXAMINATION: MR BRAIN WITHOUT AND WITH CONTRAST CLINICAL INFORMATION: Headaches, unspecified. Patient states daily headaches times years, worsening. Patient describes as retro-orbital. Per patient, history of 2 strokes. COMPARISON: No prior MRI. CTA and CT head 04/29/2021. TECHNIQUE: Multiplanar, multisequence MRI of the brain was obtained before and after the intravenous administration of 10 mL Gadavist. Examination performed on a 1.5 Tyesha Siemens high-field unit. FINDINGS: There is no diffusion restriction. There is no intracranial hemorrhage, acute infarction, mass effect, or edema. There is an area of encephalomalacia/old infarction within the right temporal articular extending into the posterior frontal operculum (MCA territory). There is mild right subinsular encephalomalacia as well with involvement of the external capsule and right putamen. There is associated gliosis and hemosiderin deposition consistent with prior hemorrhagic conversion. There is mild ex vacuo dilatation of the right lateral ventricular atrium. Ventricles, sulci, and cisterns are otherwise normal in size and configuration for patient age. No shift of midline. There are a few scattered punctate and minimally confluent foci of white matter T2 hyperintensity in the periventricular, subcortical, and hemispheric deep white matter. These foci are nonspecific but statistically most likely relate to small vessel ischemic changes. There is no abnormal intra or extra-axial contrast enhancement. Midline structures appear normally formed. The pituitary gland appears normal. Posterior fossa structures appear normal. Cerebellar tonsils are appropriately located. Major flow voids appear preserved within the skull base. The globes and orbital contents demonstrate no abnormalities. There is a small mucous retention cysts in the anteroinferior right maxillary antrum. The paranasal sinuses are otherwise clear bilaterally. The mastoids and tympanic cavities are normally aerated. Extracranial soft tissues demonstrate no abnormalities. No suspicious bone marrow changes are evident. Atlantoaxial joint is normal. MR/MR head/brain wo/w con IMPRESSION: 1. No evidence of intracranial hemorrhage, acute infarction, mass effect, or edema. No abnormal contrast enhancement. 2. Old infarction right frontal temporal operculum, extending into the right subinsular region. Associated hemosiderin deposition from prior hemorrhagic conversion. 3. Mild white matter changes of small vessel ischemia. Electronically signed by: Houston Winkler MD 10/22/2024 02:52 PM EDT
== END 2024-10-22 13:34 | disposition home or self-care (01) ==
LOC: HO.MRI 13:33
PROVIDERS: PCP Internal Medicine; Visit Provider Nurse Practitioner Family
DX: R51.9 Headache, unspecified (principal); I63.411 Cerebral infarction due to embolism of right middle cerebral artery; F19.11 Other psychoactive substance abuse, in remission; Q21.10 Atrial septal defect, unspecified
CPT/HCPCS: 70553; A9585

== ENCOUNTER → 2024-10-22 13:54 | Outpatient (BNV) | payer OTHER, SELFPAY | PROVIDERS: PCP Internal Medicine; Visit Provider Radiology Diagnostic Radiology | DX: R51.9 Headache, unspecified (principal); I25.2 Old myocardial infarction | CPT/HCPCS: 70553 ==

== ENCOUNTER 2024-11-05 08:03 | Day surgery (SDC) | payer OTHER, SELFPAY ==
[2024-11-03 16:12] VITALS: BMI 31.2
--- NOTE | 2024-11-05 08:22 | HO.ANESPROP2 ---
Documented by User: Yanely Reilly NP 11/03/24 15:17 HPI - Anesthesia Eval Consult details Narrative: 34yo M for Upper Endoscopy s/p EGD 09/2023 with MAC 09/2024 Neurology eval for chronic migraines. Hx as follows [place], [place] [facility] [place] w/o [place] effects; CVA s/p mechanical thrombectomy (2018, tx?d at [facility]) with sequelae of mild left hand and leg weakness (more so if tired). Reports history of seizure activity, a sensation of warm water dripping in his head f/b transient LOC, for which he was treated with Keppra (though he is no longer on Keppra, as he states the last episode was 8 years ago). Opioid substance abuse, which was active when the patient suffered the 1st stroke; however patient reports he was not using any illegal substances at the time of the 2nd stroke as his substance abuse has been well controlled on Suboxone. PFO with atrial septal aneurysm (was referred for surgical repair at [facility]; however patient did not proceed with this as his partner was at the time). Last cardiac office visit 06/2021 with strong recommendation for closure, but no f/u. PMFSH Active Problems Active Problems: All Active Problems Worsening headaches (Acute) Obesity (BMI 30-39.9) (Acute) Anemia (Acute) Excessive daytime sleepiness (Acute) Sleep difficulties (Acute) Snoring (Acute) Chronic migraine without aura without status migrainosus, not intractable (Acute) Migraine headache with aura (Acute) Edema of left lower extremity due to peripheral venous insufficiency (Acute) Impaired fasting glucose (Acute) Respiratory tract infection (Acute) Cyst of skin and subcutaneous tissue (Acute) Preoperative cardiovascular examination (Acute) Headache (Acute) Rash and other nonspecific skin eruption (Acute) Annual physical exam (Acute) Neck pain (Acute) Wyatt's esophagus with esophagitis (Acute) CVA (cerebral vascular accident) (Acute) Overweight (BMI 25.0-29.9) (Acute) History of substance abuse (Acute) Epilepsy (Acute) PFO with atrial septal aneurysm (Acute) Cerebrovascular accident (CVA) due to embolism of right middle cerebral artery (Acute) GERD (gastroesophageal reflux disease) (Acute) Duodenitis (Acute) Pure hypercholesterolemia (Acute) Nausea (Acute) Epigastric discomfort (Acute) Past Medical History Medical History Migraine headache with aura Overweight (BMI 25.0-29.9) History of substance abuse Epilepsy PFO with atrial septal aneurysm Cerebrovascular accident (CVA) due to embolism of right middle cerebral artery Seizure CVA (cerebral vascular accident) Drug abuse PFO (patent foramen ovale) GERD (gastroesophageal reflux disease) Duodenitis Pure hypercholesterolemia Family History Family History Father No problems noted. Mother No problems noted. Family history of problems with anesthesia: No Surgical History Surgical History History of esophagogastroduodenoscopy (EGD) History of surgery History of Problems with Anesthesia: No Social History Social History Household Members: Spouse and Children Housing: Apartment Are you a primary customer care coordinator to a significant other at home: No Do you presently have visiting nurse or other home services: No Alcohol intake: never Patient Tobacco Use Status: Never used Tobacco e-Cigarette/Vaping Use: Never Used Second Hand Smoke Exposure: No Use of substances other than those prescribed or required for medical reasons: No Advance Directives: No Advance Directives Information Provided: Yes service: No Current occupational status: employed 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 Cognitive needs: No Hearing needs: No Vision needs: No Meds Allergies Allergy/AdvReac Type Severity Reaction Status Date / Time No Known Allergies (No Known Allergy Verified 10/01/24 15:16 Allergies*) Home Medications ?Medication ?Instructions ?Recorded ?Confirmed ?Last Taken ?Type buprenorphine 8 mg-naloxone 2 mg 2 tab sublingual DAILY 05/10/20 11/05/24 10/14/23 History sublingual tablet Assessment and Plan Assessment Anesthesia Assessment: Chart Reviewed Final Anesthetic Review Family History of Problems with Anesthesia: No History of Problems with Anesthesia: No Documented by User: Lisa Askew DO 11/05/24 08:23 [facility] Past Medical History Medical History Migraine headache with aura Overweight (BMI 25.0-29.9) History of substance abuse Epilepsy PFO with atrial septal aneurysm Cerebrovascular accident (CVA) due to embolism of right middle cerebral artery Seizure CVA (cerebral vascular accident) Drug abuse PFO (patent foramen ovale) GERD (gastroesophageal reflux disease) Duodenitis Pure hypercholesterolemia Family History Family History Father No problems noted. Mother No problems noted. Family history of problems with anesthesia: No Surgical History Surgical History History of esophagogastroduodenoscopy (EGD) History of surgery History of Problems with Anesthesia: No Social History Social History Household Members: Spouse and Children Housing: Apartment Are you a primary customer care coordinator to a significant other at home: No Do you presently have visiting nurse or other home services: No Alcohol intake: never Patient Tobacco Use Status: Never used Tobacco e-Cigarette/Vaping Use: Never Used Second Hand Smoke Exposure: No Use of substances other than those prescribed or required for medical reasons: No Advance Directives: No Advance Directives Information Provided: Yes service: No Current occupational status: employed 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 Cognitive needs: No Hearing needs: No Vision needs: No Meds Allergies Allergy/AdvReac Type Severity Reaction Status Date / Time No Known Allergies (No Known Allergy Verified 10/01/24 15:16 Allergies*) Home Medications ?Medication ?Instructions ?Recorded ?Confirmed ?Last Taken ?Type buprenorphine 8 mg-naloxone 2 mg 2 tab sublingual DAILY 05/10/20 11/05/24 10/14/23 History sublingual tablet Exam Exam Date and Time: 11/05/24821 Height,Weight and Vital Signs: Height 6 ft 2 in Weight 110.223 kg Airway Mallampati Class: III (small mouth aperture) TM Dist: >3cm Neck ROM: Full Loose/Missing/Broken Teeth: No (patient denies any loose or broken teeth) Heart: S1S2 Lungs: CTAB Assessment and Plan Assessment Anesthesia Assessment: Anesthesia Plan Discussed and Chart Reviewed Final Anesthetic Review Family History of Problems with Anesthesia: No History of Problems with Anesthesia: No NPO: Yes ASA Class: III Final Preanesthetic Review: No Changes in Pt Med Stat, Meds/Allgs Chart Reviewed, Consent Obtained/Reviewed and Anes Risks/Benef Reviewed Patient Risk: Intermediate Procedure Risk: Low Anesthetic Plan Anesthetic Plan: MAC: and Agree w/ Assess. and Plan Disposition: Standard PACU
[2024-11-05 08:27] VITALS: BP 131/80; PULSE 68; RESP 16; TEMP 36.5; O2SAT 96
[2024-11-05] MEDS: Lactated Ringers 1,000 ML 100 ML IVCONT (08:28)
--- NOTE | 2024-11-05 08:59 | P.HPSUR_ITS ---
Pre-Procedural Eval Section A - 24 Hr Update-Section A only Date of Service: 11/05/24 Section B - Complete if H&P > 30 days Chief Complaint: Wyatt's esophagus without dysplasia Relevant Family History (Specify if Yes): No Relevant Social History: None Present Medications: see Short Stay Collaborative assessment Medical History: Significant History (PFO, CVA, migraine, RUPERT, barretts ) History of Previous Operations: Relevant previous surgery/procedure and date(s) (EGD) Allergies: Allergies Allergy/AdvReac Type Severity Reaction Status Date / Time No Known Allergies (No Known Allergy Verified 10/01/24 15:16 Allergies*) Review of Systems Sugical H&P ROS: Negative: Constitution, Cardiovascular, Respiratory, Neurological, Psychiatric, Hem-Onc, Allergic/Immunologic, Gastrointestinal, Genitourinary, Musculoskeletal, Integumentary, Endocrine and E yes/Ears/Nose/Throat Exam Surgical H&P Exam: Normal: HEENT, Normal: Heart, Normal: Lungs, Normal: Extremities, Normal: Abdomen, Normal: Skin and Normal: Neurological Plan Diagnosis/Plan: Unchanged I have reviewed the history and physical and performed a pertinent physical examination on my patient. No changes have occurred unless specified. Time Spent With Patient Time: Total time managing care of this patient today ____ minutes.
--- NOTE | 2024-11-05 09:47 | P.OP_ITS ---
Operative Note Operative Note Date of Service: 11/05/24 Narrative: Procedure Description: EGD Indication: Barretts Anesthesia: MAC FLEXIBLE TRANSORAL UPPER GASTROINTESTINAL ENDOSCOPY UPPER ENDOSCOPY Consent: Indications for the procedure and potential complications of bleeding, perforation, reaction to medications and missed diagnosis were discussed with the patient and informed consent was obtained. Instrument: Olympus GIF H 190 J mid size upper endoscope Monitoring: Vital signs and clinical assessment, continuous EKG monitoring, Pulse oximetry, Carbon Dioxide monitoring and blood pressure monitoring were done throughout the procedure. Procedure: The patient was placed in the left lateral decubitis position and pre-procedure medications were administered and a bite block was placed. The endoscope was inserted into the mouth and advanced under direct vision to the third part of duodenum. A careful inspection was made as the upper endoscope was withdrawn including a retroflexed examination of the proximal stomach; Findings and interventions are described below. Findings: Larynx:normal Esophagus: GE junction at 39? cm, diaphragm hiatus at 42 cm, consistent with 3 cm fixed hiatal hernia, there was a 14 cm long segment of Barretts esophagus [id number] by [place] classification, Brushings taken for WATS 3D x 3 kits, also biopsies per [place] protocol. no focal nodularity seen. Balloon dilation done at LES and UES to balloon 20 mm, no tears seen Stomach: Patchy gastric erythema. Grade 3 flap valve on retroflexed examination of the cardia with lax LES. There was reduced gastric movement. Duodenum: Normal bulb and descending duodenum, Intervention: Biopsies as noted above and brushings, balloon dilation Impression/Findings: long segment barretts hiatal hernia PLAN: await results continue with PPI. BID if dysplasia refer for ablation, he would benefit from hernia repair or fundoplication, needs to get PFO adressed first
[2024-11-05 09:50] VITALS: BP 111/62; PULSE 66; RESP 16; TEMP 36.8; O2SAT 97
[2024-11-05 10:05] VITALS: BP 115/62; PULSE 75; RESP 16; TEMP 36.6; O2SAT 97
== END 2024-11-05 10:57 | disposition home or self-care (01) ==
PROVIDERS: PCP Internal Medicine; Visit Provider Internal Medicine Gastroenterology
PROC: 0DJ08ZZ Inspection of Upper Intestinal Tract, Via Natural or Artificial Opening Endoscopic (ICD-10-PCS; CPT 43235; principal; 2024-11-05 10:00)
DX: K21.9 Gastro-esophageal reflux disease without esophagitis (principal); K22.70 Barrett's esophagus without dysplasia; K22.4 Dyskinesia of esophagus; Q39.8 Other congenital malformations of esophagus; K29.80 Duodenitis without bleeding; K44.9 Diaphragmatic hernia without obstruction or gangrene; E78.00 Pure hypercholesterolemia, unspecified; Z79.899 Other long term (current) drug therapy
CPT/HCPCS: 43249; 43239; 88305; J2704

== ENCOUNTER → 2024-11-05 08:03 | Outpatient (BNV) | payer OTHER, SELFPAY | PROVIDERS: PCP Internal Medicine; Visit Provider Internal Medicine Gastroenterology | DX: K22.70 Barrett's esophagus without dysplasia (principal); K22.89 Other specified disease of esophagus | CPT/HCPCS: 43239; 43249 ==

== ENCOUNTER → 2025-01-12 12:55 | Outpatient (REF) | payer OTHER, SELFPAY | LOC: HO.SL 12:55 | PROVIDERS: PCP Internal Medicine; Visit Provider Nurse Practitioner Family | DX: G47.33 Obstructive sleep apnea (adult) (pediatric) (principal); R06.83 Snoring; G47.19 Other hypersomnia; E66.9 Obesity, unspecified; I63.9 Cerebral infarction, unspecified | CPT/HCPCS: 95806 ==

== ENCOUNTER → 2025-01-12 13:04 | Outpatient (BNV) | payer OTHER, SELFPAY | PROVIDERS: PCP Internal Medicine; Visit Provider Psychiatry & Neurology Neurology | DX: R06.83 Snoring (principal); G47.33 Obstructive sleep apnea (adult) (pediatric) | CPT/HCPCS: 95806 ==

== ENCOUNTER 2025-01-12 14:16 | Outpatient (AMB) | payer OTHER, SELFPAY ==
[2025-01-12 14:46] VITALS: BP 118/80; PULSE 86; TEMP 36.3; O2SAT 98; BMI 30.3
--- NOTE | 2025-01-12 14:46 | A.OFFPC_ITS ---
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 Operator Required: No Accompanied by: Self / Same As Patient Allergies No Known Allergies (No Known Allergies*) Allergy (Verified 01/12/25 15:24) Medication List - Last Reconciled 01/12/25 by Raghavendra Villarreal MD buprenorphine-naloxone 8-2 mg 2 tabs sublingual DAILY pantoprazole 40 mg PO BID 90 days topiramate 25 mg PO BEDTIME 30 days ubrogepant (Ubrelvy) 50 - 100 mg (0.5 - 1 x 100 mg) PO ONCE PRN 30 days Tobacco use date assessed: 09/30/24 Dental Screening Dental Screen Date: 09/30/24 Did you have a dental visit in the last 12 months?: Yes Did you have a dental problem in the last 6 months where you did not have access to dental care?: No Was dental information given to patient?: Patient has dentist [facility] Medical History Migraine headache with aura Overweight (BMI 25.0-29.9) History of substance abuse Epilepsy PFO with atrial septal aneurysm Cerebrovascular accident (CVA) due to embolism of right middle cerebral artery Seizure CVA (cerebral vascular accident) Drug abuse PFO (patent foramen ovale) GERD (gastroesophageal reflux disease) Duodenitis Pure hypercholesterolemia Surgical History History of esophagogastroduodenoscopy (EGD) History of surgery Family History Father No problems noted. Mother No problems noted. 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 1. Little interest or pleasure in doing things: nearly every day 2. Feeling down, depressed, or hopeless: not at all 3. Trouble falling or staying asleep, or sleeping too much: not at all 4. Feeling tired or having little energy: not at all 5. Poor appetite or overeating: not at all 6. Feeling bad about yourself - or that you are a failure or have let yourself or your family down: not at all 7. Trouble concentrating on things, such as reading the newspaper or watching te levision: not at all 8. Moving or speaking so slowly that other people could have noticed. Or the opposite - being so fidgety or restless that you have been moving around a lot more than usual: not at all 9. Thoughts that you would be better off or of hurting yourself in some way: not at all Total score: 3 Depression Screening Interpretation: Positive Depression Screening Follow-up: Follow-up Visit Requested Depression Screening Done: Yes Source: Developed by Drs. Mp Ryan, Orin Guzman, Patel Yen and colleagues, with an educational dung from [employer]. Thrive Questionnaire Date Thrive assessed: 09/30/24 I am a: Patient What is your living situation today?: I have a steady place to live Within the past 12 months, did the food you bought not last and you didn't have the money to get more?: Never true Within the past 12 months, did you worry whether your food would run out before you got money to buy more?: Never true Do you have trouble paying for medicines?: No Do you have trouble getting transportation to medical appointments?: No Do you have trouble paying your heating and electricity bill?: No Do you have trouble taking care of your child, family member or friend?: No Do you have trouble with day-to-day activities such as bathing, preparing meals, shopping, managing finances, etc.?: No Are you currently unemployed and looking for a job?: No Are you interested in more education?: No Please select the resources that you would like help with: None Currently or been in a relationship where the following occur: No concerns reported THRIVE Score: 0 AUDIT C Alcohol Use Questionnaire (AUDIT-C) 1. How often do you have a drink containing alcohol?: Never 3. How often do you have six or more drinks on one occasion?: Never Total Score: 0 Score Reviewed/Action Taken: Yes STEPHANIE-7 AMB Questionnaire STEPHANIE-7 Date STEPHANIE - 7 assessed: 09/30/24 Feeling nervous, anxious, or on edge: 0 = Not at all Not being able to stop or control worryin = Not at all Worrying too much about different things: 0 = Not at all Trouble relaxin = Not at all Being so restless that it is hard to sit still: 0 = Not at all Becoming easily annoyed or irritable: 0 = Not at all Feeling afraid as if something awful might happen: 0 = Not at all Total STEPHANIE-7 score (0-4 normal; 5-9 mild; 10-14 moderate; 15-21 severe): 0 Source: Developed by Drs. Mp Ryan, Orin Guzman, Patel Yen and colleagues, with an educational dung from [employer]. Physical exam (Primary Care) Vital Signs: Last Vital Signs Temp 97.3 F 01/12/25 14:46 Pulse 86 01/12/25 14:46 BP 118/80 01/12/25 14:46 Pulse Ox 98 01/12/25 14:46 Oxygen Delivery Method Room Air 01/12/25 14:46 BMI result Body Mass Index 30.3 Tobacco/Smoking Status: Tobacco use Status Tobacco use date assessed 01/12/25 01/12/25 14:48 Patient Tobacco Use Status Never used Tobacco 01/12/25 14:48 e-Cigarette/Vaping Use Never Used 01/12/25 14:48 PHQ-9: PHQ-9 Score PHQ-9: Total score 3 01/12/25 15:02 Depression Screening Interpretation: Positive Depression Screening Follow-up: Follow-up Visit Requested Thrive Assessment: Date of Thrive Assessment Date Thrive assessed 09/30/24 01/12/25 14:48 Currently or been in a relationship where the following occur: No concerns reported Coding
--- NOTE | 2025-01-12 14:46 | MHC.PC.OV ---
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: No Accompanied by: Self / Same As Patient Allergies No Known Allergies (No Known Allergies*) Allergy (Verified 01/12/25 15:24) Medication List - Last Reconciled 01/12/25 by Raghavendra Villarreal MD buprenorphine-naloxone 8-2 mg 2 tabs sublingual DAILY pantoprazole 40 mg PO BID 90 days topiramate 25 mg PO BEDTIME 30 days ubrogepant (Ubrelvy) 50 - 100 mg (0.5 - 1 x 100 mg) PO ONCE PRN 30 days Tobacco use date assessed: 01/12/25 Dental Screening Dental Screen Date: 01/12/25 HPI migraine HPI Details Patient comes in today for his follow up visit States that he feels okay He denies any headaches or dizziness - states that his migraine headaches have been better controlled lately Denies any chest pains, no SOB No nausea/vomiting, no abdominal pain No change in bowel habits noted He has no routine follow up labs ordered or done recently [facility] Medical History Migraine headache with aura Overweight (BMI 25.0-29.9) History of substance abuse Epilepsy PFO with atrial septal aneurysm Cerebrovascular accident (CVA) due to embolism of right middle cerebral artery Seizure CVA (cerebral vascular accident) Drug abuse PFO (patent foramen ovale) GERD (gastroesophageal reflux disease) Duodenitis Pure hypercholesterolemia Surgical History History of esophagogastroduodenoscopy (EGD) History of surgery Family History Father No problems noted. Mother No problems noted. 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 Depression Screening Interpretation: Positive Depression Screening Follow-up: Follow-up Visit Requested Depression Screening Done: Yes Source: Developed by Drs. Mp Ryan, Patel Phillips and colleagues, with an educational dung from [employer]. Thrive Questionnaire Date Thrive assessed: 09/30/24 I am a: Patient What is your living situation today?: I have a steady place to live Within the past 12 months, did the food you bought not last and you didn't have the money to get more?: Never true Within the past 12 months, did you worry whether your food would run out before you got money to buy more?: Never true Do you have trouble paying for medicines?: No Do you have trouble getting transportation to medical appointments?: No Do you have trouble paying your heating and electricity bill?: No Do you have trouble taking care of your child, family member or friend?: No Do you have trouble with day-to-day activities such as bathing, preparing meals, shopping, managing finances, etc.?: No Are you currently unemployed and looking for a job?: No Are you interested in more education?: No Please select the resources that you would like help with: None Currently or been in a relationship where the following occur: No concerns reported THRIVE Score: 0 STEPHANIE-7 AMB Questionnaire STEPHANIE-7 Date STEPHANIE - 7 assessed: 09/30/24 Source: Developed by Drs. Mp Ryan, Orin Guzman, Patel Yen and colleagues, with an educational dung from [employer]. Review of Systems Const Denies chills, Denies fatigue, Denies fever(s) and Denies headache(s) (better controlled lately) ENT Denies dysphagia, Denies dizziness, Denies otalgia, Denies headache(s) (better controlled lately), Denies neck pain, Denies odynophagia and Denies sore throat Card Denies chest pain, Denies rapid heart rate, Denies irregular heart rhythm, Denies palpitations and Denies dyspnea Resp Denies chest congestion, Denies cough and Denies dyspnea GI Denies abdominal pain, Denies constipation, Denies dysphagia, Denies heartburn, Denies diarrhea, Denies nausea, Denies odynophagia and Denies vomiting Denies difficulty urinating, Denies dysuria, Denies urinary frequency and Denies urinary urgency Musc Denies back pain, Denies arthralgias and Denies neck pain Skin/Breast Denies rash Neuro Denies dizziness, Denies headache(s) (better controlled lately) and Denies paresthesias Endo Denies fatigue and Denies palpitations Physical exam (Primary Care) Vital Signs: Last Vital Signs Temp 97.3 F 01/12/25 14:46 Pulse 86 01/12/25 14:46 BP 118/80 01/12/25 14:46 Pulse Ox 98 01/12/25 14:46 Oxygen Delivery Method Room Air 01/12/25 14:46 BMI result Body Mass Index 30.3 Tobacco/Smoking Status: Tobacco use Status Tobacco use date assessed 01/12/25 01/12/25 14:48 Patient Tobacco Use Status Never used Tobacco 01/12/25 14:48 e-Cigarette/Vaping Use Never Used 01/12/25 14:48 PHQ-9: PHQ-9 Score PHQ-9: Total score 3 01/12/25 15:02 Depression Screening Interpretation: Positive Depression Screening Follow-up: Follow-up Visit Requested Thrive Assessment: Date of Thrive Assessment Date Thrive assessed 09/30/24 01/12/25 14:48 Currently or been in a relationship where the following occur: No concerns reported Const General: no acute distress and alert Orientation/consciousness: patient oriented x3 HENMT Ears: TM's normal bilaterally and EAC's normal Throat: Yes posterior oropharynx normal and Yes tonsils normal (no TP congestion) Neck Neck: Yes supple and No lymphadenopathy Thyroid: Thyroid normal Resp Auscultation: clear to auscultation bilaterally, no rales and no wheezes Cardio Rate: regular rate Rhythm: regular rhythm Heart sounds: no murmurs GI Palpation (GI): Soft to palpation and nontender Auscultation: normal bowel sounds General: Yes no CVA tenderness Back/Spine/Pelvis Back: no CVA tenderness Thoracic/Lumbar Spine: No lumbar spinal tenderness Skin Rashes: no rashes Neuro General: patient oriented x3 and moves all extremities Extrem General: Yes no clubbing, cyanosis or edema Coding Level of Care Code Est Pt Level 4 (96404) Diagnoses Migraine with aura and without status migrainosus, not intractable G43.109 Status migrainosus presence: without status migrainosus Intractability: not intractable PFO with atrial septal aneurysm Q21.1 Cerebrovascular accident (CVA), unspecified mechanism I63.9 CVA mechanism: unspecified Pure hypercholesterolemia E78.00 Nonintractable epilepsy without status epilepticus, unspecified epilepsy type G40.909 Epilepsy type: unspecified Intractability: not intractable Status epilepticus: without status epilepticus Wyatt's esophagus with esophagitis K22.70; K20.90 Edema of left lower extremity due to peripheral venous insufficiency I87.2 History of substance abuse F19.11 Overweight (BMI 25.0-29.9) E66.3 Assessment & Plan Assessment & Plan (1) Migraine headache with aura: Code(s): G43.109 - Migraine with aura, not intractable, without status migrainosus Category: Medical Qualifiers: Status migrainosus presence: without status migrainosus Intractability: not intractable Qualified Code(s): G43.109 - Migraine with aura, not intractable, without status migrainosus Plan: Better controlled lately Reinforced avoidance of all potential migraine triggers Continue Topiramate 25 mg Q HS for headache prophylaxis Continue Ubrelvy 50 to 100 mg PRN as instructed Head CT done back in 2021 that came out negative with no acute intracranial pathology although there is sequelae of remote right middle cerebral artery territory infarct without significant change noted on his scan Follow up with neurology as scheduled (2) PFO with atrial septal aneurysm: Comment: follows w/ @ [facility]-last office visit 06/2021 & [place] [facility] [place](s): Q21.1 - Atrial septal defect Category: Medical Plan: LORI done in 2019 revealed the presence of a PFO and atrial septal aneurysm Surgical correction and closure was advised then - patient was referred by cardiology to Dr. Macdonald last year and he was supposed to follow up with Dr. Macdonald regularly for this and we will defer the decision for closure of patient's PFO to Dr. Macdonald but unclear at this time if patient is keeping his appointments with Dr. Macdonald or not (3) CVA (cerebral vascular accident): Comment: 03/2019 (underwent mechanical thrombectomy) and 2015 (received tPA) at [facility] with little residual symptoms Code(s): I63.9 - Cerebral infarction, unspecified Category: Medical Qualifiers: CVA mechanism: unspecified Qualified Code(s): I63.9 - Cerebral infarction, unspecified Plan: Involving primarily the middle cerebral artery, likely a result of his PFO S/P 2 separate CVAs - first one in 2015 (received tPA) and second occurred in 03/2021 (underwent mechanical thombectomy) - patient currently has minimal residual neurologic symptoms (4) Pure hypercholesterolemia: Code(s): E78.00 - Pure hypercholesterolemia, unspecified Category: Medical Plan: Patient has not had any follow up labs done since June 2023; have again cautioned him that his LDL cholesterol was elevated back then at 140 mg/dl Reinforced low cholesterol diet He was previously started on Atorvastatin 40 mg a couple of years ago but patient appears to be currently no longer on the Rx as it has not been refilled in over a year Will recheck his labs and fasting lipids in 6 months for follow up (5) Epilepsy: Code(s): G40.909 - Epilepsy, unspecified, not intractable, without status epilepticus Category: Medical Qualifiers: Epilepsy type: unspecified Intractability: not intractable Status epilepticus: without status epilepticus Qualified Code(s): G40.909 - Epilepsy, unspecified, not intractable, without status epilepticus Plan: He used to take Keppra but has not been on Rx in a few years - this was reportedly discontinued by neurology previously He has had no seizures in years (seizure was most likely triggered by withdrawal when he tried to stop using heroin abruptly years ago) but he apparently was brought to the ER at [facility] sometime in February 2023 due to active seizures - patient ended up leaving the ER AMA He was seeing neurology for follow up in the past but has not been back with them in a few years now - we referred him back to neurology earlier this year and he is now back to seeing them again regularly for his headaches and seizure disorder (6) Wyatt's esophagus with esophagitis: Code(s): K22.70 - Wyatt's esophagus without dysplasia; K20.90 - Esophagitis, unspecified without bleeding Category: Medical Plan: S/P EGD with Bx in August 2021, confirming Wyatt's esophagus on pathology Reinforced dietary restrictions Continue Pantoprazole 40 mg QD Follow up with GI as scheduled (7) Edema of left lower extremity due to peripheral venous insufficiency: Code(s): I87.2 - Venous insufficiency (chronic) (peripheral) Category: Medical Plan: Patient's recurrent lower extremity swelling is likely due to stasis edema brought about in part by his varicose veins Have advised him to try to keep his left leg elevated as often as he can throughout the day to help with his leg swelling He was advised that he can also try wearing some compression stockings to help keep his swelling down but if this continues to get worse, he will likely need to see vascular surgery for further management (8) History of substance abuse: Code(s): F19.11 - Other psychoactive substance abuse, in remission Category: Medical Plan: (+) Hx of intranasal heroin; denies any Hx of IVDU Continue Suboxone 8-2 mg 2 films SL QD Follow up with the Suboxone clinic as scheduled (9) Overweight (BMI 25.0-29.9): Code(s): E66.3 - Overweight Category: Medical Plan: Reinforced diet/exercise as tolerated/lose weight Plan To return in 6 months for his next annual physical examination Orders: Orders Complete Blood Count Auto Diff 6 Months D64.9 - Anemia, unspecified, Z00.00 - Encounter for general adult medical examination without abnormal findings TSH reflex Free T4 6 Months E78.00 - Pure hypercholesterolemia, unspecified, Z00.00 - Encounter for general adult medical examination without abnormal findings Comprehensive [place]. Panel Fast 6 Months E78.00 - Pure hypercholesterolemia, unspecified, Z00.00 - Encounter for general adult medical examination without abnormal findings Lipid Panel 6 Months E78.00 - Pure hypercholesterolemia, unspecified, Z00.00 - Encounter for general adult medical examination without abnormal findings UA CC w/rflx Micro + Cult 6 Months R30.0 - Dysuria, Z00.00 - Encounter for general adult medical examination without abnormal findings Vitamin D 25-OH Total 6 Months E55.9 - Vitamin D deficiency, unspecified, Z00.00 - Encounter for general adult medical examination without abnormal findings
== END 2025-01-12 15:33 | disposition home or self-care (01) ==
LOC: HO.HMCH 14:17
PROVIDERS: PCP Internal Medicine; Visit Provider Internal Medicine
DX: G43.109 Migraine with aura, not intractable, without status migrainosus (principal); I63.9 Cerebral infarction, unspecified; G40.909 Epilepsy, unspecified, not intractable, without status epilepticus; F19.11 Other psychoactive substance abuse, in remission; Q21.10 Atrial septal defect, unspecified; E78.00 Pure hypercholesterolemia, unspecified; K22.70 Barrett's esophagus without dysplasia; K20.90 Esophagitis, unspecified without bleeding; I87.2 Venous insufficiency (chronic) (peripheral); E66.3 Overweight

== ENCOUNTER 2025-01-25 11:23 | Outpatient (AMB) | payer OTHER, SELFPAY ==
--- NOTE | 2025-01-25 11:26 | MHC.OFFVIS ---
Vital Signs 01/25/25 11:27 Height 6 ft 2 in Weight 229 lb 4.492 oz BMI 29.4 BP 122/70 Blood Pressure Location Lt brachial Position Sitting Pulse 74 Intake Visit Reasons: s/p egd Intake Note: Mp presents in the office as a follow up for his EGD. CC: no concerns at this time. 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 VITAL SIGNS:see workflow HEENT: Nonicteric sclerae, PERRLA, EOMI. Oropharynx clear. Moist mucous membranes. Conjunctivae appear well perfused. No thyroid mass. CHEST: Chest wall is nontender. HEART: Regular rate and rhythm without murmurs. LUNGS: Clear to auscultation bilaterally. ABDOMEN: Soft, positive bowel sounds, nontender, no organomegaly.no flank tenderness SKIN: No rash, no excessive bruising, petechiae, or purpura. NEUROLOGIC: Cranial nerves II-XII intact without motor/sensory deficit. Psych: normal affect A/P: 1/ Wyatt,s --prior with LGD but recnet neg with tissue cypher low risk--may be worse due to patulous GEJ or hiatal hernia PLAN: 1/ repeat ba swallow- now and EGD 6 months, if hiatal hernia present or reflux seen agian then referral for partial fundoplication and hernia repair will also change to nexium and see if helps better [facility] Medical History Migraine headache with aura Overweight (BMI 25.0-29.9) History of substance abuse Epilepsy PFO with atrial septal aneurysm Cerebrovascular accident (CVA) due to embolism of right middle cerebral artery Seizure CVA (cerebral vascular accident) Drug abuse PFO (patent foramen ovale) GERD (gastroesophageal reflux disease) Duodenitis Pure hypercholesterolemia Surgical History History of esophagogastroduodenoscopy (EGD) History of surgery Family History Father No problems noted. Mother No problems noted. 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 Cognitive needs: No Hearing needs: No Vision needs: No Physical Exam Vital Signs: Last Vital Signs Pulse 74 01/25/25 11:27 BP 122/70 01/25/25 11:27 BMI result Body Mass Index 29.4 Assessment & Plan Assessment & Plan (1) Wyatt's esophagus with esophagitis: Code(s): K22.70 - Wyatt's esophagus without dysplasia; K20.90 - Esophagitis, unspecified without bleeding Category: Medical Plan: as above Orders: Orders FL barium swallow with air Today R13.10 - Dysphagia, unspecified Medications: New esomeprazole magnesium 40 mg PO BID 90 caps 2RF Discontinued pantoprazole Discontinued Reason: Doctor's Order 40 mg PO BID 90 days 180 tabs 3RF Coding Level of Care Code Est Pt Level 3 (11348) Diagnoses Wyatt's esophagus with esophagitis K22.70; K20.90
[2025-01-25 11:27] VITALS: BP 122/70; PULSE 74; BMI 29.4
== END 2025-01-25 11:46 | disposition home or self-care (01) ==
LOC: HO.HGI 11:23
PROVIDERS: PCP Internal Medicine; Visit Provider Internal Medicine Gastroenterology
DX: K22.70 Barrett's esophagus without dysplasia (principal); K20.90 Esophagitis, unspecified without bleeding
CPT/HCPCS: 99213